=== PATIENT | male | born 1950 | race Caucasian/White ===

== ENCOUNTER 2020-03-19 08:31 | Outpatient (REF) | payer MEDICARE, SELFPAY ==
[2020-03-19 11:34] LABS: Hematocrit 40.7 % (42-52); Hemoglobin 13.3 g/dl (14.0-18.0); Mean Corpuscular HGB Conc 32.7 g/dl (31.0-36.0); Mean Corpuscular Hemoglobin 29.7 pg (27.0-33.0); Mean Corpuscular Volume 90.8 fL (80-98); Mean Platelet Volume 10.5 fL (9.4-12.4); Platelet Count 234 X10*3/uL (160-400); Red Blood Count 4.48 X10*6/uL (4.60-5.80); Red Cell Distribution Width 13.2 % (11.0-16.0)
[2020-03-19 11:43] LABS: Alanine Aminotransferase 16 U/L (0-40); Albumin Level 4.4 g/dL (3.5-5.0); Alkaline Phosphatase 66 U/L (39-117); Anion Gap 16 (12-20); Aspartate Amino Transferase 17 U/L (5-37); Bilirubin Total 0.8 mg/dL (0.0-1.0); Blood Urea Nitrogen 25 mg/dL (9-16); Calcium 9.2 mg/dL (8.4-10.2); Carbon Dioxide 25 mmol/L (22-29); Chloride 100 mmol/L (96-108); Estimated Glomerular Filt Rate > 60; Glucose Fasting 122 mg/dL (60-99); Iron 59 mcg/dL (45-160); Percent Iron Saturation 18 % (15-50); Potassium 4.5 mmol/l (3.3-5.1); Sodium 136 mmol/L (135-145); Total Iron Binding Capacity 320 mcg/dL (228-428); Total Protein 7.6 g/dL (6.5-8.0); Unsaturated Iron Binding 261 ug/dL
[2020-03-19 11:54] LABS: Estimated Average Glucose 148 mg/dL; Hemoglobin A1c % 6.8 %
[2020-03-19 12:10] LABS: Ferritin 63 ng/mL (20-250)
[2020-03-19 12:46] LABS: Prostate Specific Antigen Scr 5.92 ng/mL (<0.05-4.0)
[2020-03-19 13:01] LABS: Folate 18.6 ng/mL (> or = 4.0); Vitamin B12 1589 pg/mL (200-900)
== END 2020-03-19 08:32 | disposition home or self-care (01) ==
LOC: HO.HMGCLDS 08:31
PROVIDERS: PCP Internal Medicine; Visit Provider Internal Medicine
DX: M54.5 Low back pain (principal); G89.29 Other chronic pain; G47.00 Insomnia, unspecified; D64.9 Anemia, unspecified
CPT/HCPCS: 36415; 80053; 82607; 82728; 82746; 83036; 83540; 84153; 85027

== ENCOUNTER 2020-04-25 14:13 | Outpatient (REF) | payer MEDICARE, SELFPAY | END 2020-04-25 14:14 | disposition home or self-care (01) | LOC: HO.LAB 14:13 | PROVIDERS: Visit Provider Nurse Practitioner Family | DX: L02.91 Cutaneous abscess, unspecified (principal) | CPT/HCPCS: 87071; 87205 ==

== ENCOUNTER → 2020-04-26 14:38 | Outpatient (BNVA) | payer MEDICARE, SELFPAY | PROVIDERS: PCP Internal Medicine; Visit Provider Urology | DX: N40.1 Benign prostatic hyperplasia with lower urinary tract symptoms (principal); N13.8 Other obstructive and reflux uropathy; R97.20 Elevated prostate specific antigen [PSA] | CPT/HCPCS: 99202 ==

== ENCOUNTER 2020-07-22 08:55 | Outpatient (REF) | payer MEDICARE, SELFPAY ==
[2020-07-22 11:44] LABS: Hemoglobin 12.8 g/dl (14.0-18.0); Mean Corpuscular HGB Conc 32.8 g/dl (31.0-36.0); Mean Corpuscular Hemoglobin 29.6 pg (27.0-33.0); Mean Corpuscular Volume 90.3 fL (80-98); Mean Platelet Volume 10.5 fL (9.4-12.4); Platelet Count 222 X10*3/uL (160-400); Red Blood Count 4.32 X10*6/uL (4.60-5.80); Red Cell Distribution Width 13.1 % (11.0-16.0); White Blood Count 9.6 X10*3/uL (4.8-10.8)
[2020-07-22 11:46] LABS: Alanine Aminotransferase 19 U/L (0-40); Albumin Level 4.1 g/dL (3.5-5.0); Alkaline Phosphatase 67 U/L (39-117); Anion Gap 15 (12-20); Aspartate Amino Transferase 17 U/L (5-37); Bilirubin Total 0.6 mg/dL (0.0-1.0); Blood Urea Nitrogen 13 mg/dL (9-16); Calcium 8.9 mg/dL (8.4-10.2); Carbon Dioxide 24 mmol/L (22-29); Chloride 106 mmol/L (96-108); Cholesterol 149 mg/dL; Estimated Glomerular Filt Rate > 60; Glucose Fasting 119 mg/dL (60-99); HDL Cholesterol 42 mg/dL; LDL Cholesterol Calculated 84 mg/dl; Sodium 141 mmol/L (135-145); Total Protein 7.1 g/dL (6.5-8.0); Triglycerides 116 mg/dL
[2020-07-22 12:12] LABS: Estimated Average Glucose 137 mg/dL; Hemoglobin A1c % 6.4 %
[2020-07-22 12:26] LABS: Creatinine Urine 186.67 mg/dL; Microalbum/Creatinine Ratio Ur 6.4 ug/mg cr
== END 2020-07-22 08:56 | disposition home or self-care (01) ==
LOC: HO.HMGCLDS 08:55
PROVIDERS: PCP Internal Medicine; Visit Provider Internal Medicine
DX: E11.9 Type 2 diabetes mellitus without complications (principal); E78.5 Hyperlipidemia, unspecified; I10 Essential (primary) hypertension; R97.20 Elevated prostate specific antigen [PSA]
CPT/HCPCS: 36415; 80053; 80061; 82043; 83036; 85027

== ENCOUNTER 2020-08-13 09:27 | Outpatient (REF) | payer MEDICARE, SELFPAY ==
[2020-08-13 14:20] LABS: Prostate Specific Antigen 2.28 ng/mL (<0.05-4.0)
== END 2020-08-13 09:28 | disposition home or self-care (01) ==
LOC: HO.HMGCLDS 09:27
PROVIDERS: PCP Internal Medicine; Visit Provider Urology
DX: N40.1 Benign prostatic hyperplasia with lower urinary tract symptoms (principal); N13.8 Other obstructive and reflux uropathy; Z12.5 Encounter for screening for malignant neoplasm of prostate
CPT/HCPCS: 36415; 84153

== ENCOUNTER → 2020-08-23 14:33 | Outpatient (BNVA) | payer MEDICARE, SELFPAY | PROVIDERS: PCP Internal Medicine; Visit Provider Urology | DX: N40.1 Benign prostatic hyperplasia with lower urinary tract symptoms (principal); N13.8 Other obstructive and reflux uropathy; R97.20 Elevated prostate specific antigen [PSA] | CPT/HCPCS: 99212 ==

== ENCOUNTER 2020-10-21 08:23 | Outpatient (REF) | payer MEDICARE, SELFPAY ==
[2020-10-21 11:14] LABS: Hematocrit 39.3 % (42-52); Mean Corpuscular HGB Conc 33.1 g/dl (31.0-36.0); Mean Corpuscular Hemoglobin 29.4 pg (27.0-33.0); Mean Corpuscular Volume 88.9 fL (80-98); Mean Platelet Volume 10.5 fL (9.4-12.4); Platelet Count 228 X10*3/uL (160-400); Red Blood Count 4.42 X10*6/uL (4.60-5.80); Red Cell Distribution Width 13.2 % (11.0-16.0); White Blood Count 9.8 X10*3/uL (4.8-10.8)
[2020-10-21 11:27] LABS: Estimated Average Glucose 140 mg/dL; Hemoglobin A1c % 6.5 %
[2020-10-21 11:35] LABS: Alanine Aminotransferase 21 U/L (0-40); Albumin Level 4.3 g/dL (3.5-5.0); Alkaline Phosphatase 63 U/L (39-117); Anion Gap 14 (12-20); Aspartate Amino Transferase 18 U/L (5-37); Bilirubin Total 0.8 mg/dL (0.0-1.0); Blood Urea Nitrogen 19 mg/dL (9-16); Calcium 9.1 mg/dL (8.4-10.2); Carbon Dioxide 22 mmol/L (22-29); Chloride 106 mmol/L (96-108); Cholesterol 216 mg/dL; Estimated Glomerular Filt Rate > 60; Glucose Fasting 116 mg/dL (60-99); HDL Cholesterol 40 mg/dL; LDL Cholesterol Calculated 135 mg/dl; Sodium 138 mmol/L (135-145); Total Protein 7.4 g/dL (6.5-8.0); Triglycerides 205 mg/dL
[2020-10-21 11:43] LABS: Creatinine Urine 101.42 mg/dL; Microalbumin Urine < 5.0 mg/L
== END 2020-10-21 08:24 | disposition home or self-care (01) ==
LOC: HO.HMGCLDS 08:23
PROVIDERS: PCP Internal Medicine; Visit Provider Internal Medicine
DX: E11.9 Type 2 diabetes mellitus without complications (principal); I10 Essential (primary) hypertension; E78.5 Hyperlipidemia, unspecified
CPT/HCPCS: 36415; 80053; 80061; 82043; 83036; 85027

== ENCOUNTER 2021-03-04 08:27 | Outpatient (REF) | payer MEDICARE, SELFPAY ==
[2021-03-04 11:52] LABS: Alanine Aminotransferase 17 U/L (0-40); Albumin Level 4.3 g/dL (3.5-5.0); Alkaline Phosphatase 65 U/L (39-117); Anion Gap 13 (12-20); Aspartate Amino Transferase 15 U/L (5-37); Bilirubin Total 0.6 mg/dL (0.0-1.0); Blood Urea Nitrogen 19 mg/dL (9-16); Calcium 9.3 mg/dL (8.4-10.2); Carbon Dioxide 25 mmol/L (22-29); Chloride 105 mmol/L (96-108); Cholesterol 161 mg/dL; Estimated Glomerular Filt Rate > 60; Glucose Fasting 133 mg/dL (60-99); HDL Cholesterol 37 mg/dL; LDL Cholesterol Calculated 90 mg/dl; Potassium 4.4 mmol/L (3.3-5.1); Sodium 139 mmol/L (135-145); Total Protein 7.4 g/dL (6.5-8.0); Triglycerides 172 mg/dL
[2021-03-04 11:59] LABS: Creatinine Urine 115.09 mg/dL; Microalbumin Urine < 5.0 mg/L
[2021-03-04 12:16] LABS: Prostate Specific Antigen 2.29 ng/mL (<0.05-4.0)
[2021-03-04 13:40] LABS: Estimated Average Glucose 146 mg/dL; Hemoglobin A1c % 6.7 %
== END 2021-03-04 08:28 | disposition home or self-care (01) ==
LOC: HO.HMGCLDS 08:27
PROVIDERS: PCP Internal Medicine; Visit Provider Urology
DX: Z12.5 Encounter for screening for malignant neoplasm of prostate (principal); N13.8 Other obstructive and reflux uropathy; N40.1 Benign prostatic hyperplasia with lower urinary tract symptoms; E11.9 Type 2 diabetes mellitus without complications; E78.5 Hyperlipidemia, unspecified; I10 Essential (primary) hypertension
CPT/HCPCS: 36415; 80053; 80061; 82043; 83036; 84153

== ENCOUNTER → 2021-03-11 12:57 | Outpatient (BNVA) | payer MEDICARE, SELFPAY | PROVIDERS: PCP Internal Medicine; Visit Provider Urology | DX: Z13.89 Encounter for screening for other disorder (principal) | CPT/HCPCS: Q3014 ==

== ENCOUNTER 2021-04-23 10:20 | Outpatient (REF) | payer MEDICARE, SELFPAY ==
[2021-04-23 12:56] LABS: Erythrocyte Sedimentation Rate 38 MM/HR (0-15)
== END 2021-04-23 10:21 | disposition home or self-care (01) ==
LOC: HO.HMGCLDS 10:20
PROVIDERS: PCP Internal Medicine; Visit Provider Physical Medicine & Rehabilitation
DX: M35.3 Polymyalgia rheumatica (principal)
CPT/HCPCS: 36415; 85652

== ENCOUNTER 2021-07-01 08:21 | Outpatient (REF) | payer MEDICARE, SELFPAY ==
[2021-07-01 11:49] LABS: Estimated Average Glucose 140 mg/dL; Hemoglobin A1c % 6.5 %
[2021-07-01 12:07] LABS: Alanine Aminotransferase 13 U/L (0-40); Albumin Level 4.1 g/dL (3.5-5.0); Alkaline Phosphatase 59 U/L (39-117); Anion Gap 13 (12-20); Aspartate Amino Transferase 10 U/L (5-37); Bilirubin Total 0.5 mg/dL (0.0-1.0); Blood Urea Nitrogen 27 mg/dL (9-16); Calcium 9.5 mg/dL (8.4-10.2); Carbon Dioxide 23 mmol/L (22-29); Chloride 107 mmol/L (96-108); Cholesterol 145 mg/dL; Estimated Glomerular Filt Rate > 60; Glucose Fasting 78 mg/dL (60-99); HDL Cholesterol 46 mg/dL; LDL Cholesterol Calculated 75 mg/dl; Potassium 4.4 mmol/L (3.3-5.1); Sodium 139 mmol/L (135-145); Total Protein 7.1 g/dL (6.5-8.0); Triglycerides 121 mg/dL
[2021-07-01 12:33] LABS: Microalbum/Creatinine Ratio Ur 6.3 ug/mg cr
== END 2021-07-01 08:22 | disposition home or self-care (01) ==
LOC: HO.HMGCLDS 08:21
PROVIDERS: PCP Internal Medicine; Visit Provider Internal Medicine
DX: E11.9 Type 2 diabetes mellitus without complications (principal); E78.5 Hyperlipidemia, unspecified; I10 Essential (primary) hypertension
CPT/HCPCS: 36415; 80053; 80061; 82043; 83036

== ENCOUNTER → 2021-08-13 08:36 | Outpatient (RCR) | payer MEDICARE, SELFPAY ==
--- NOTE | 2020-02-14 18:16 | MHC.PT.DC ---
[facility] [place] Office [place] Office [place] Office [address] Mee Santos 140 [facility] [phone] F: [phone] F: [phone] F: [phone] F: [phone] Physical Therapy Discharge Report Diagnosis: LBP Date of Surgery: Date of Evaluation: 01/01/02 Date of Discharge: Treatments to Date: 10 Cancellations to Date: 0 No Shows to Date: 0 Discharge Status: Discharge Summary: Pt has been an active participant in his therapy in and out of the clinic and has met most of his therapeutic goals, is I with his home program and in agreement with Dc at this time. Electronically signed by: Jeff Salvador PT Please sign and return to therapist. Thank you for your referral.
== END | disposition home or self-care (01) ==
LOC: HO.PTCHIC 01-12 09:52
PROVIDERS: PCP Internal Medicine; Visit Provider Internal Medicine
DX: M54.5 Low back pain (principal)
CPT/HCPCS: 97014; 97110; 97140; 97150; 97530

== ENCOUNTER 2021-08-26 08:00 | Outpatient (REF) | payer MEDICARE, SELFPAY | END 2021-08-26 08:01 | disposition home or self-care (01) | LOC: HO.HMGCLDS 08:00 | PROVIDERS: PCP Internal Medicine; Visit Provider Urology | DX: Z12.5 Encounter for screening for malignant neoplasm of prostate (principal); N40.1 Benign prostatic hyperplasia with lower urinary tract symptoms; N13.8 Other obstructive and reflux uropathy | CPT/HCPCS: 36415; 84153 ==

== ENCOUNTER 2021-08-27 09:46 | Outpatient (REF) | payer MEDICARE, SELFPAY ==
[2021-08-27 11:43] LABS: MANUAL DIFF FLAG NO
[2021-08-27 12:40] LABS: Basophils Absolute Auto 0.1 X10*3/uL (0.0-0.2); Basophils Percent Auto 0.4 % (0-2); Eosinophils Absolute Auto 0.2 X10*3/uL (0.0-0.4); Eosinophils Percent Auto 1.2 % (0-4); Hematocrit 37.4 % (42.0-52.0); Hemoglobin 11.9 g/dl (14.0-18.0); Imm Gran Pct Auto 0.7 % (0.0-0.4); Lymphocytes Absolute Auto 2.8 X10*3/uL (1.2-4.9); Lymphocytes Percent Auto 19.8 % (20-40); Mean Corpuscular HGB Conc 31.8 g/dl (31.0-36.0); Mean Corpuscular Hemoglobin 28.9 pg (27.0-33.0); Mean Corpuscular Volume 90.8 fL (80.0-98.0); Mean Platelet Volume 9.9 fL (9.4-12.4); Monocytes Absolute Auto 1.2 X10*3/uL (0.1-1.2); Monocytes Percent Auto 8.4 % (2-11); Neutrophils Absolute Auto 9.7 x10*3/uL (2.0-8.3); Neutrophils Percent Auto 69.5 % (45-73); Platelet Count 315 X10*3/uL (160-400); Red Blood Count 4.12 X10*6/uL (4.60-5.80); Red Cell Distribution Width 14.5 % (11.0-16.0); White Blood Count 13.9 X10*3/uL (4.8-10.8)
[2021-08-27 13:08] LABS: C Reactive Protein 0.89 mg/dL (< or = 0.50)
[2021-08-27 13:32] LABS: Erythrocyte Sedimentation Rate 30 MM/HR (0-15)
== END 2021-08-27 09:47 | disposition home or self-care (01) ==
LOC: HO.LAB 09:46
PROVIDERS: PCP Internal Medicine; Visit Provider Internal Medicine Rheumatology
DX: M25.511 Pain in right shoulder (principal); M25.512 Pain in left shoulder; R70.0 Elevated erythrocyte sedimentation rate; M25.50 Pain in unspecified joint; M19.049 Primary osteoarthritis, unspecified hand; M35.3 Polymyalgia rheumatica
CPT/HCPCS: 36415; 82550; 85025; 85652; 86140; 99202

== ENCOUNTER → 2021-09-05 10:03 | Outpatient (BNVA) | payer MEDICARE, SELFPAY | PROVIDERS: PCP Internal Medicine; Referring Provider Internal Medicine; Visit Provider Nurse Practitioner Family | DX: Z12.11 Encounter for screening for malignant neoplasm of colon (principal) | CPT/HCPCS: 99202 ==

== ENCOUNTER → 2021-09-09 11:35 | Outpatient (BNVA) | payer MEDICARE, SELFPAY | PROVIDERS: PCP Internal Medicine; Visit Provider Urology | DX: N40.1 Benign prostatic hyperplasia with lower urinary tract symptoms (principal); N13.8 Other obstructive and reflux uropathy; R97.20 Elevated prostate specific antigen [PSA] | CPT/HCPCS: Q3014 ==

== ENCOUNTER 2021-09-30 08:27 | Outpatient (REF) | payer MEDICARE, SELFPAY ==
[2021-09-30 11:47] LABS: Hematocrit 36.5 % (42.0-52.0); Hemoglobin 11.5 g/dl (14.0-18.0); Mean Corpuscular HGB Conc 31.5 g/dl (31.0-36.0); Mean Corpuscular Hemoglobin 28.9 pg (27.0-33.0); Mean Corpuscular Volume 91.7 fL (80.0-98.0); Platelet Count 264 X10*3/uL (160-400); Red Blood Count 3.98 X10*6/uL (4.60-5.80); Red Cell Distribution Width 13.8 % (11.0-16.0)
[2021-09-30 11:59] LABS: Estimated Average Glucose 137 mg/dL; Hemoglobin A1C 148.6181 umol/L; Hemoglobin A1c % 6.4 %
[2021-09-30 12:13] LABS: Alanine Aminotransferase 11 U/L (0-40); Albumin Level 4.2 g/dL (3.5-5.0); Alkaline Phosphatase 79 U/L (39-117); Anion Gap 14 (12-20); Aspartate Amino Transferase 13 U/L (5-37); Bilirubin Total 0.5 mg/dL (0.0-1.0); Blood Urea Nitrogen 28 mg/dL (9-16); C Reactive Protein 0.11 mg/dL (< or = 0.50); Calcium 9.1 mg/dL (8.4-10.2); Carbon Dioxide 22 mmol/L (22-29); Chloride 108 mmol/L (96-108); Cholesterol 158 mg/dL; Estimated Glomerular Filt Rate 54; Glucose Fasting 82 mg/dL (60-99); HDL Cholesterol 46 mg/dL; Iron 46 mcg/dL (45-160); LDL Cholesterol Calculated 96 mg/dl; Percent Iron Saturation 14 % (15-50); Potassium 4.9 mmol/L (3.3-5.1); Sodium 139 mmol/L (135-145); Total Iron Binding Capacity 334 mcg/dL (228-428); Triglycerides 84 mg/dL; Unsaturated Iron Binding 288 ug/dL
[2021-09-30 12:31] LABS: Erythrocyte Sedimentation Rate 20 MM/HR (0-15)
[2021-09-30 12:41] LABS: Creatinine Urine 89.56 mg/dL; Microalbumin Urine < 5.0 mg/L
== END 2021-09-30 08:28 | disposition home or self-care (01) ==
LOC: HO.HMGCLDS 08:27
PROVIDERS: Absent Provider Internal Medicine Rheumatology; PCP Internal Medicine; Visit Provider Internal Medicine
DX: M35.3 Polymyalgia rheumatica (principal); E11.9 Type 2 diabetes mellitus without complications; I10 Essential (primary) hypertension
CPT/HCPCS: 36415; 80053; 80061; 82043; 83036; 83540; 85027; 85652; 86140

== ENCOUNTER → 2021-10-09 09:13 | Outpatient (BNVA) | payer MEDICARE, SELFPAY | PROVIDERS: PCP Internal Medicine; Visit Provider Internal Medicine Rheumatology | DX: M35.3 Polymyalgia rheumatica (principal); M25.511 Pain in right shoulder | CPT/HCPCS: 99212 ==

== ENCOUNTER 2021-11-28 10:00 | Outpatient (RCR) | payer MEDICARE, SELFPAY ==
--- NOTE | 2021-10-27 13:52 | MHC.PT.EP ---
[facility] [place] Office [place] Office [place] Office [address] Malorie Santos [address] [phone] F: [phone] F: [phone] F: [phone] F: [phone] Physical Therapy Plan of Care Date of Evaluation: Date of Surgery: Diagnosis: Pain in R shoulder. Assessment: Pt is a 71 y/o male with PMR referred to PT for eval and treat of R shoulder pain resulting in decreased tolerance for reaching high shelves, dress pullovers, perform heavy HH and yard-work chores secondary to decreased R shoulder ROM and strength, TTP of R anterior shoulder, decreased scapular posture, and pain. Pt is deemed an appropriate candidate to receive skilled PT in order to address his physical limitations to improve his functional ability. Frequency and Duration: The patient will be seen 2 x / wk x 5 wks. Short Term Goals: Initiate HEP. symmetrical shoulder flexion achieved; initial: R 140 and painful, L 165. Intermediate Goals: I with HEP. Pt will be able to dress pullover with managed Sx; initial:4/10 pain/ difficulty. Pt will be able to place objects on high shelf with managed Sx; initial: 6/10 pain. Improve R shoulder ER MMT by at least 1/2 MMT grade. Treatment Plan: Modalities to reduce pain, spasms and effusion. Manual therapy to restore motion and function. Therapeutic exercise to improve strength and flexibility. Neuromuscular re-education for posture and balance. Therapeutic activities to return to functional activities of daily living. Electronically signed by: Jeff Salvador PT. Please sign and return to therapist. Thank you for your referral.
--- NOTE | 2021-11-28 10:54 | MHC.PT.DC ---
[facility] [place] Office [place] Office [place] Office [address] Mee Santos [address] [phone] F: [phone] F: [phone] F: [phone] F: [phone] Physical Therapy Discharge Report Diagnosis: Pain in R shoulder. Date of Surgery: Date of Evaluation: 10/27/21 Date of Discharge: 11/28/21 Treatments to Date: 6 Cancellations to Date: No Shows to Date: Discharge Status: Achieved Goals Improved Function Independent with HEP Discharge Summary: Vern has been an active and motivated participant in his therapy in and out of the clinic; he has met his therapeutic goals, reports 90% improvement of his symptoms, and is I with his home program. LEFI outcome measure improved from 52% to 14%. Electronically signed by: Jeff Salvador PT. Please sign and return to therapist. Thank you for your referral.
== END 2021-11-28 10:55 | disposition home or self-care (01) ==
LOC: HO.PTCHIC 10:00
PROVIDERS: PCP Internal Medicine; Visit Provider Internal Medicine Rheumatology
DX: M25.511 Pain in right shoulder (principal); M35.3 Polymyalgia rheumatica
CPT/HCPCS: 97110; 97140; 97161

== ENCOUNTER 2021-12-02 08:30 | Outpatient (REF) | payer MEDICARE, SELFPAY ==
--- NOTE | ~2021-12-02 | XR_ITS ---
EXAMINATION: XR SHOULDER, RIGHT CLINICAL INFORMATION: Polymyalgia rheumatica COMPARISON: None TECHNIQUE: Four views of the right shoulder. FINDINGS: No fracture or dislocation. The glenohumeral joint is aligned well. Small osteophytes. Mild degenerative change of the acromioclavicular joint. The visualized lung is clear. The visualized ribs are intact. XR/XR shoulder RT min 2V IMPRESSION: Mild degenerative changes.
[2021-12-02 12:02] LABS: C Reactive Protein 0.26 mg/dL (< or = 0.50)
[2021-12-02 12:03] LABS: Erythrocyte Sedimentation Rate 23 MM/HR (0-15)
== END 2021-12-02 08:31 | disposition home or self-care (01) ==
LOC: HO.HMGCX 08:30
PROVIDERS: PCP Internal Medicine; Visit Provider Internal Medicine Rheumatology
DX: M35.3 Polymyalgia rheumatica (principal); M25.511 Pain in right shoulder
CPT/HCPCS: 36415; 73030; 85652; 86140

== ENCOUNTER → 2021-12-10 10:17 | Outpatient (BNVA) | payer MEDICARE, SELFPAY | PROVIDERS: PCP Internal Medicine; Visit Provider Internal Medicine Rheumatology | DX: M35.3 Polymyalgia rheumatica (principal); M19.049 Primary osteoarthritis, unspecified hand; M75.81 Other shoulder lesions, right shoulder; Z79.52 Long term (current) use of systemic steroids | CPT/HCPCS: 99212 ==

== ENCOUNTER 2022-01-14 07:32 | Day surgery (SDC) | payer MEDICARE, SELFPAY ==
--- NOTE | 2022-01-13 09:15 | P.CONAN_ITS ---
Documented by User: Rama Hensley NP 01/13/22 09:17 HPI - Anesthesia Eval Consult details Narrative: 71yo M for Colonoscopy Prednisone 4mg daily for PMR PMFSH Active Problems Active Problems: All Active Problems (Updated 12/10/21 @ 13:28 by Patel Gross MD) Tendinitis of right rotator cuff (Acute) Pain, joint, shoulder region, right (Acute) Polymyalgia rheumatica (Acute) Osteoarthritis, hand (Acute) ESR raised (Acute) Osteoarthritis of lumbosacral spine with radiculopathy (Acute) BPH w urinary obs/LUTS (Acute) Hypertension (Acute) Type 2 diabetes mellitus (Acute) Elevated PSA (Acute) Hyperlipidemia (Acute) Past Medical History Medical History (Updated 12/10/21 @ 13:28 by Patel Gross MD) Annual physical exam Arthralgia Chronic bronchitis Dupuytren's contracture of both hands Elevated PSA ESR raised H/O mixed hyperlipidemia Hyperlipidemia Hypertension Insomnia Mild persistent asthma Osteoarthritis of lumbosacral spine with radiculopathy Osteoarthritis, hand Polymyalgia rheumatica Shoulder pain, bilateral Shoulder tendinitis Type 2 diabetes mellitus Family History Family History Father Diabetes mellitus Mother HTN (hypertension) Sister No problems noted. Daughter No problems noted. Surgical History Surgical History H/O colonoscopy No pertinent past surgical history Social History Social History Housing: House Alcohol intake: never Patient Tobacco Use Status: Former Tobacco user Tobacco use type: Cigarette Smoked in Last 30 Days: No e-Cigarette/Vaping Use: Never Used Use of substances other than those prescribed or required for medical reasons: No Are you DNR?: No Advance Directives: No Advance Directives Information Provided: Yes Current occupational status: retired Cognitive needs: No Hearing needs: Yes Vision needs: No Meds Allergies Allergy/AdvReac Type Severity Reaction Status Date / Time No Known Allergies Allergy Verified 12/10/21 10:45 Home Medications Medication Instructions Recorded Confirmed Last Taken Type pravastatin 80 mg tablet 80 mg PO DAILY 01/14/22 01/14/22 Unknown History prednisone 1 mg tablet 3 mg PO DAILY 01/14/22 01/14/22 Unknown History Exam Exam Date and Time: January 13, 2022 0915 Pertinent Lab Results Pertinent Lab Results: Laboratory Tests 09/30/21 09/30/21 08:36 08:36 WBC 11.0 H Hgb 11.5 L Hct 36.5 L Plt Count 264 Sodium 139 Potassium 4.9 Chloride 108 Carbon Dioxide 22 BUN 28 H Creatinine 1.30 Assessment and Plan Assessment Anesthesia Assessment: Chart Reviewed Documented by User: Rosario Grace MD 01/14/22 09:30 [facility] Past Medical History Medical History (Updated 12/10/21 @ 13:28 by Patel Gross MD) Annual physical exam Arthralgia Chronic bronchitis Dupuytren's contracture of both hands Elevated PSA ESR raised H/O mixed hyperlipidemia Hyperlipidemia Hypertension Insomnia Mild persistent asthma Osteoarthritis of lumbosacral spine with radiculopathy Osteoarthritis, hand Polymyalgia rheumatica Shoulder pain, bilateral Shoulder tendinitis Type 2 diabetes mellitus Family History Family History Father Diabetes mellitus Mother HTN (hypertension) Sister No problems noted. Daughter No problems noted. Family history of problems with anesthesia: No Surgical History Surgical History H/O colonoscopy No pertinent past surgical history History of Problems with Anesthesia: No Social History Social History Housing: House Alcohol intake: never Patient Tobacco Use Status: Former Tobacco user Tobacco use type: Cigarette Smoked in Last 30 Days: No e-Cigarette/Vaping Use: Never Used Use of substances other than those prescribed or required for medical reasons: No Are you DNR?: No Advance Directives: No Advance Directives Information Provided: Yes Current occupational status: retired Cognitive needs: No Hearing needs: Yes Vision needs: No Meds Allergies Allergy/AdvReac Type Severity Reaction Status Date / Time No Known Allergies Allergy Verified 12/10/21 10:45 Home Medications Medication Instructions Recorded Confirmed Last Taken Type pravastatin 80 mg tablet 80 mg PO DAILY 01/14/22 01/14/22 Unknown History prednisone 1 mg tablet 3 mg PO DAILY 01/14/22 01/14/22 Unknown History Exam Airway Mallampati Class: III TM Dist: >3cm Neck ROM: Full Heart: rrr Lungs: cta Assessment and Plan Assessment Anesthesia Assessment: Anesthesia Plan Discussed and Chart Reviewed Final Anesthetic Review Family History of Problems with Anesthesia: No History of Problems with Anesthesia: No NPO: Yes ASA Class: II Final Preanesthetic Review: No Changes in Pt Med Stat, Meds/Allgs Chart Reviewed and Consent Obtained/Reviewed Patient Risk: Intermediate Procedure Risk: Intermediate Anesthetic Plan Anesthetic Plan: MAC: Disposition: Standard PACU
[2022-01-14 08:48] VITALS: BMI 28.4
[2022-01-14 09:05] VITALS: BP 134/72; PULSE 88; RESP 16; TEMP 36.4; O2SAT 98
[2022-01-14] MEDS: Lactated Ringers 1,000 ML 100 ML IVCONT (09:18)
[2022-01-14 09:21] LABS: Glucose, Whole Blood 120 mg/dL (60-115)
--- NOTE | 2022-01-14 09:27 | MHC.SHP ---
Pre-Procedural Eval Section A Date of Service: 01/14/22 Section B Chief Complaint: screening Relevant Family History (Specify if Yes): No Relevant Social History: None Present Medications: see Short Stay Collaborative assessment Medical History: Significant History (Arthralgia Chronic bronchitis Dupuytren's contracture of both hands Elevated PSA ESR raised H/O mixed hyperlipidemia Hyperlipidemia Hypertension Insomnia Mild persistent asthma Osteoarthritis of lumbosacral spine with radiculopathy Osteoarthritis, hand Polymyalgia rheumatica Shoulder pain, bilateral) History of Previous Operations: Relevant previous surgery/procedure and date(s) (colonoscopy) Allergies: Allergies Allergy/AdvReac Type Severity Reaction Status Date / Time No Known Allergies Allergy Verified 12/10/21 10:45 Review of Systems Sugical H&P ROS: Negative: Constitution, Cardiovascular, Respiratory, Neurological, Psychiatric, Hem-Onc, Allergic/Immunologic, Gastrointestinal, Genitourinary, Musculoskeletal, Integumentary, Endocrine and Eyes/Ears/Nose/Throat Exam Surgical H&P Exam: Normal: HEENT, Normal: Heart, Normal: Lungs, Normal: Extremities, Normal: Abdomen, Normal: Skin and Normal: Neurological Plan Diagnosis/Plan: Unchanged I have reviewed the history and physical and performed a pertinent physical examination on my patient. No changes have occurred unless specified.
--- NOTE | 2022-01-14 09:31 | W.PM.OPN ---
Operative Note Operative Note Date of Service: 01/14/22 Narrative: Operative Information Procedure Description: Colonoscopy Indication: screening Anesthesia: MAC COLONOSCOPY Instrument: Olympus variable stiffness adult scope 190L Colonoscopy Monitoring: Vital signs and clinical assessment, continuous EKG monitoring, Pulse oximetry, Carbon Dioxide monitoring and blood pressure monitoring were done throughout the procedure. Colon withdrawal time was 30 minutes. Procedure: The patient was placed in the left lateral decubitis position and pre-procedure medications were administered. After a digital rectal examination of the ano-rectum, the video colonoscope was inserted into the rectum and advanced through the colon to the cecum The colonoscope was slowly withdrawn in a retrograde panoramic fashion and the colon mucosa was carefully examined including a retroflexed view of the rectum. Findings and interventions are described below. Procedure Difficulty: difficult due to looping Findings: Terminal Ileum-not intubated Cecum:normal Ascending Colon: large sessile polyp 2-3 cm in length, injected with ORISE and epinpehrine then removed using combination of hot snare,. cold snare and biopsy forceps. Edges ablated with soft tip coag and then defect closed with 4 clips. Pieces retrieved wtih net. Transverse Colon -normal Descending Colon:normal Sigmoid Colon: normal Rectum: Retroflexion not doen as patient was vomiting. Anorectum - normal Colon preparation: [place] Bowel Preparation Scale Right colon; 2 Transverse colon: 2 Left colon; 2 (0 = Unprepared colon segment with mucosa not seen due to solid stool that cannot be cleared. 1 = Portion of mucosa of the colon segment seen, but other areas of the colon segment not well seen due to staining, residual stool and/or opaque liquid. 2 = Minor amount of residual staining, small fragments of stool and/or opaque liquid, but mucosa of colon segment seen well. 3 = Entire mucosa of colon segment seen well with no residual staining, small fragments of stool or opaque liquid) Impression and Post Procedure Diagnosis: large polyp lesion right colon Plan: Repeat Colonoscopy in 3-6 months or earlier if clinically indicated Avoid nsaids for 1 week Above findings were reviewed with the patient and relevant handouts were provided if indicated.
[2022-01-14 10:23] VITALS: BP 118/86; PULSE 79; RESP 16; TEMP 36.4; O2SAT 94
[2022-01-14 10:38] VITALS: BP 138/72; PULSE 76; RESP 18; TEMP 36.4; O2SAT 98
== END 2022-01-14 11:09 ==
LOC: HO.SSS 07:32
PROVIDERS: PCP Internal Medicine; Visit Provider Internal Medicine Gastroenterology
PROC: 0DJD8ZZ Inspection of Lower Intestinal Tract, Via Natural or Artificial Opening Endoscopic (ICD-10-PCS; CPT 45378; principal; 2022-01-14 09:30)
DX: Z12.11 Encounter for screening for malignant neoplasm of colon (principal); D12.2 Benign neoplasm of ascending colon; R97.20 Elevated prostate specific antigen [PSA]; I10 Essential (primary) hypertension; J45.30 Mild persistent asthma, uncomplicated; J42 Unspecified chronic bronchitis; E78.5 Hyperlipidemia, unspecified; M35.3 Polymyalgia rheumatica; E11.9 Type 2 diabetes mellitus without complications; Z79.84 Long term (current) use of oral hypoglycemic drugs; Z79.52 Long term (current) use of systemic steroids; Z79.899 Other long term (current) drug therapy; Z87.891 Personal history of nicotine dependence
CPT/HCPCS: 45385; 45380; 45381; 82947; 88305; J0171

== ENCOUNTER → 2022-01-28 10:07 | Outpatient (BNVA) | payer MEDICARE, SELFPAY | PROVIDERS: PCP Internal Medicine; Visit Provider Nurse Practitioner Family | DX: Z01.818 Encounter for other preprocedural examination (principal); D36.9 Benign neoplasm, unspecified site | CPT/HCPCS: 99212 ==

== ENCOUNTER 2022-02-02 08:07 | Outpatient (REF) | payer MEDICARE, SELFPAY ==
[2022-02-02 11:46] LABS: Estimated Average Glucose 128 mg/dL; Hemoglobin A1C 129.6406 umol/L; Hemoglobin A1c % 6.1 %
[2022-02-02 12:17] LABS: Alanine Aminotransferase 9 U/L (0-40); Albumin Level 4.2 g/dL (3.5-5.0); Alkaline Phosphatase 73 U/L (39-117); Anion Gap 16 (12-20); Aspartate Amino Transferase 13 U/L (5-37); Bilirubin Total 0.6 mg/dL (0.0-1.0); Blood Urea Nitrogen 21 mg/dL (9-16); Calcium 9.4 mg/dL (8.4-10.2); Carbon Dioxide 22 mmol/L (22-29); Chloride 106 mmol/L (96-108); Cholesterol 156 mg/dL; Estimated Glomerular Filt Rate > 60; Glucose Fasting 95 mg/dL (60-99); HDL Cholesterol 44 mg/dL; LDL Cholesterol Calculated 75 mg/dl; Potassium 4.4 mmol/L (3.3-5.1); Sodium 140 mmol/L (135-145); Total Protein 7.1 g/dL (6.5-8.0); Triglycerides 185 mg/dL
[2022-02-02 12:25] LABS: Creatinine Urine 93.02 mg/dL; Microalbumin Urine < 5.0 mg/L
== END 2022-02-02 08:08 | disposition home or self-care (01) ==
LOC: HO.HMGCLDS 08:07
PROVIDERS: PCP Internal Medicine; Visit Provider Internal Medicine
DX: E11.9 Type 2 diabetes mellitus without complications (principal); E78.5 Hyperlipidemia, unspecified; I10 Essential (primary) hypertension
CPT/HCPCS: 36415; 80053; 80061; 82043; 83036

== ENCOUNTER 2022-03-06 08:38 | Outpatient (REF) | payer MEDICARE, SELFPAY ==
[2022-03-06 10:01] LABS: Erythrocyte Sedimentation Rate 28 MM/HR (0-15)
[2022-03-06 10:27] LABS: PSA,Total (Free>4and<10) 2.42 ng/mL (0.00-4.00)
== END 2022-03-06 08:39 | disposition home or self-care (01) ==
LOC: HO.LAB 08:38
PROVIDERS: Absent Provider Urology; PCP Internal Medicine; Visit Provider Internal Medicine Rheumatology
DX: Z12.5 Encounter for screening for malignant neoplasm of prostate (principal); M35.3 Polymyalgia rheumatica; N40.1 Benign prostatic hyperplasia with lower urinary tract symptoms; N13.8 Other obstructive and reflux uropathy
CPT/HCPCS: 36415; 84153; 85652

== ENCOUNTER → 2022-03-10 10:58 | Outpatient (BNVA) | payer MEDICARE, SELFPAY | PROVIDERS: PCP Internal Medicine; Visit Provider Internal Medicine Rheumatology | DX: M35.3 Polymyalgia rheumatica (principal) | CPT/HCPCS: 99212 ==

== ENCOUNTER → 2022-03-17 11:28 | Outpatient (BNVA) | payer MEDICARE, SELFPAY | PROVIDERS: PCP Internal Medicine; Visit Provider Urology | DX: R97.20 Elevated prostate specific antigen [PSA] (principal); N40.1 Benign prostatic hyperplasia with lower urinary tract symptoms; N13.8 Other obstructive and reflux uropathy | CPT/HCPCS: Q3014 ==

== ENCOUNTER 2022-04-16 08:24 | Outpatient (REF) | payer MEDICARE, SELFPAY ==
[2022-04-16 12:01] LABS: C Reactive Protein 0.58 mg/dL (< or = 0.50)
[2022-04-16 12:29] LABS: Erythrocyte Sedimentation Rate 29 MM/HR (0-15)
== END 2022-04-16 08:25 | disposition home or self-care (01) ==
LOC: HO.HMGCLDS 08:24
PROVIDERS: PCP Internal Medicine; Visit Provider Internal Medicine Rheumatology
DX: M35.3 Polymyalgia rheumatica (principal)
CPT/HCPCS: 36415; 85652; 86140

== ENCOUNTER → 2022-04-22 08:17 | Outpatient (BNVA) | payer MEDICARE, SELFPAY | PROVIDERS: PCP Internal Medicine; Visit Provider Internal Medicine Rheumatology | DX: M19.049 Primary osteoarthritis, unspecified hand (principal); M47.27 Other spondylosis with radiculopathy, lumbosacral region; M75.81 Other shoulder lesions, right shoulder; M35.3 Polymyalgia rheumatica | CPT/HCPCS: 20610; 99212 ==

== ENCOUNTER 2022-05-05 07:44 | Outpatient (REF) | payer MEDICARE, SELFPAY ==
[2022-05-05 11:40] LABS: MANUAL DIFF FLAG NO
[2022-05-05 11:49] LABS: Basophils Absolute Auto 0.1 X10*3/uL (0.0-0.2); Basophils Percent Auto 0.5 % (0-2); Eosinophils Absolute Auto 0.3 X10*3/uL (0.0-0.4); Hematocrit 37.7 % (42.0-52.0); Hemoglobin 12.2 g/dl (14.0-18.0); Imm Gran Abs Auto 0.04 X10*3/uL (0.00-0.03); Imm Gran Pct Auto 0.3 % (0.0-0.4); Lymphocytes Absolute Auto 3.8 X10*3/uL (1.2-4.9); Lymphocytes Percent Auto 30.4 % (20-40); Mean Corpuscular HGB Conc 32.4 g/dl (31.0-36.0); Mean Corpuscular Hemoglobin 28.2 pg (27.0-33.0); Mean Corpuscular Volume 87.1 fL (80.0-98.0); Mean Platelet Volume 10.3 fL (9.4-12.4); Monocytes Absolute Auto 0.9 X10*3/uL (0.1-1.2); Monocytes Percent Auto 7.1 % (2-11); Neutrophils Absolute Auto 7.5 x10*3/uL (2.0-8.3); Neutrophils Percent Auto 59.7 % (45-73); Platelet Count 291 X10*3/uL (160-400); Red Blood Count 4.33 X10*6/uL (4.60-5.80); Red Cell Distribution Width 13.9 % (11.0-16.0); White Blood Count 12.6 X10*3/uL (4.8-10.8)
[2022-05-05 12:17] LABS: Alanine Aminotransferase 12 U/L (0-40); Albumin Level 4.2 g/dL (3.5-5.0); Alkaline Phosphatase 85 U/L (39-117); Anion Gap 17 (12-20); Aspartate Amino Transferase 14 U/L (5-37); Bilirubin Total 0.9 mg/dL (0.0-1.0); Blood Urea Nitrogen 21 mg/dL (9-16); Calcium 9.4 mg/dL (8.4-10.2); Carbon Dioxide 22 mmol/L (22-29); Chloride 106 mmol/L (96-108); Cholesterol 137 mg/dL; Estimated Glomerular Filt Rate 59; Glucose Fasting 100 mg/dL (60-99); HDL Cholesterol 50 mg/dL; LDL Cholesterol Calculated 63 mg/dl; Potassium 4.5 mmol/L (3.3-5.1); Sodium 140 mmol/L (135-145); Total Protein 7.1 g/dL (6.5-8.0); Triglycerides 120 mg/dL
[2022-05-05 12:20] LABS: Estimated Average Glucose 140 mg/dL; Hemoglobin A1C 148.5229 umol/L; Hemoglobin A1c % 6.5 %
[2022-05-05 12:40] LABS: Creatinine Urine 99.94 mg/dL; Microalbumin Urine < 5.0 mg/L
== END 2022-05-05 07:45 | disposition home or self-care (01) ==
LOC: HO.HMGCLDS 07:44
PROVIDERS: PCP Internal Medicine; Visit Provider Internal Medicine
DX: Z00.00 Encounter for general adult medical examination without abnormal findings (principal); E11.9 Type 2 diabetes mellitus without complications; E78.5 Hyperlipidemia, unspecified; I10 Essential (primary) hypertension
CPT/HCPCS: 36415; 80053; 80061; 82043; 83036; 85025

== ENCOUNTER 2022-05-14 06:15 | Day surgery (SDC) | payer MEDICARE, SELFPAY ==
[2022-05-08 13:45] VITALS: BMI 28.0
--- NOTE | 2022-05-14 06:03 | MHC.SHP ---
Pre-Procedural Eval Section A Date of Service: 05/14/22 Section B Chief Complaint: Benign neoplasm, Relevant Family History (Specify if Yes): No Relevant Social History: None Present Medications: see Short Stay Collaborative assessment Medical History: Significant History (Arthralgia Chronic bronchitis Dupuytren's contracture of both hands Elevated PSA ESR raised H/O mixed hyperlipidemia Hyperlipidemia Hypertension Insomnia Mild persistent asthma Osteoarthritis of lumbosacral spine with radiculopathy Osteoarthritis, hand Polymyalgia rheumatica Shoulder pain, bilateral) History of Previous Operations: Relevant previous surgery/procedure and date(s) (colonoscopy) Allergies: Allergies Allergy/AdvReac Type Severity Reaction Status Date / Time No Known Allergies Allergy Verified 05/13/22 12:26 Review of Systems Sugical H&P ROS: Negative: Constitution, Cardiovascular, Respiratory, Neurological, Psychiatric, Hem-Onc, Allergic/Immunologic, Gastrointestinal, Genitourinary, Musculoskeletal, Integumentary, Endocrine and Eyes/Ears/Nose/Throat Exam Surgical H&P Exam: Normal: HEENT, Normal: Heart, Normal: Lungs, Normal: Extremities, Normal: Abdomen, Normal: Skin and Normal: Neurological Plan Diagnosis/Plan: Unchanged I have reviewed the history and physical and performed a pertinent physical examination on my patient. No changes have occurred unless specified. Time Spent With Patient Time: Total time managing care of this patient today ____ minutes.
[2022-05-14 07:02] LABS: Glucose, Whole Blood 108 mg/dL (60-115)
[2022-05-14 07:12] VITALS: BP 141/75; PULSE 89; RESP 18; TEMP 36.5; O2SAT 96
[2022-05-14] MEDS: Lactated Ringers 1,000 ML 100 ML IVCONT (07:31)
--- NOTE | 2022-05-14 07:51 | P.OP_ITS ---
Operative Note Operative Note Date of Service: 05/14/22 Narrative: Operative Information Procedure Description: Colonoscopy Indication: hx of polyps Anesthesia: MAC COLONOSCOPY Instrument: Olympus variable stiffness pediatric scope 190L Colonoscopy Monitoring: Vital signs and clinical assessment, continuous EKG monitoring, Pulse oximetry, Carbon Dioxide monitoring and blood pressure monitoring were done throughout the procedure. Colon withdrawal time was 20 minutes. Procedure: The patient was placed in the left lateral decubitis position and pre-procedure medications were administered. After a digital rectal examination of the ano-rectum, the video colonoscope was inserted into the rectum and advanced through the colon to the cecum/TI. The colonoscope was slowly withdrawn in a retrograde panoramic fashion and the colon mucosa was carefully examined including a retroflexed view of the rectum. Findings and interventions are described below. Procedure Difficulty: mdoerate due to looping, put on back, presssure applied, but back position helped more Findings: Terminal Ileum-normal Cecum: 4-6 mm sessile polyps x2 -one removed with cold forceps and another with cold snare, small AVM noted Ascending Colon: 10-12 mm sessile polyp removed with cold snare, no residual scars or polyps noted from last EMR few months back- few non bleeding AVM noted Transverse Colon -normal Descending Colon: 7-8 mm sessile polyp removed with cold snare Sigmoid Colon: normal Rectum: Retroflexion with small internal hemorrhoids, grade I Anorectum - normal Colon preparation: [place] Bowel Preparation Scale Right colon; 2 Transverse colon: 2 Left colon; 1-2 (0 = Unprepared colon segment with mucosa not seen due to solid stool that cannot be cleared. 1 = Portion of mucosa of the colon segment seen, but other areas of the colon segment not well seen due to staining, residual stool and/or opaque liquid. 2 = Minor amount of residual staining, small fragments of stool and/or opaque liquid, but mucosa of colon segment seen well. 3 = Entire mucosa of colon segment seen well with no residual staining, small fragments of stool or opaque liquid) Impression and Post Procedure Diagnosis: polyps internal hemorrhoids non bleeding AVM several Plan: High fiber diet leaflet Avoid straining at stool, epsom salts and sitz bath, anusol supps or cream Repeat Colonoscopy in 6-12 months or earlier if clinically indicated Above findings were reviewed with the patient and relevant handouts were provided if indicated.
--- NOTE | 2022-05-14 08:33 | HO.ANESPROP2 ---
HPI - Anesthesia Eval Consult details Narrative: 72 M for colonoscopy [facility] Active Problems Active Problems: All Active Problems (Updated 05/13/22 @ 13:27 by Hiral Avery MD) BPH w urinary obs/LUTS (Acute) Tendinitis of right rotator cuff (Acute) Polymyalgia rheumatica (Acute) Osteoarthritis, hand (Acute) ESR raised (Acute) Osteoarthritis of lumbosacral spine with radiculopathy (Acute) Hypertension (Acute) Type 2 diabetes mellitus (Acute) Elevated PSA (Acute) Hyperlipidemia (Acute) Past Medical History Medical History Annual physical exam Arthralgia Chronic bronchitis Dupuytren's contracture of both hands Elevated PSA ESR raised H/O mixed hyperlipidemia Hyperlipidemia Hypertension Insomnia Mild persistent asthma Osteoarthritis of lumbosacral spine with radiculopathy Osteoarthritis, hand Polymyalgia rheumatica Shoulder pain, bilateral Shoulder tendinitis Type 2 diabetes mellitus Family History Family History Father Diabetes mellitus Mother HTN (hypertension) Sister No problems noted. Daughter No problems noted. Family history of problems with anesthesia: No Surgical History Surgical History H/O colonoscopy History of Problems with Anesthesia: No Social History Social History Housing: House Alcohol intake: never Patient Tobacco Use Status: Former Tobacco user Tobacco use type: Cigarette e-Cigarette/Vaping Use: Never Used Use of substances other than those prescribed or required for medical reasons: No Have you been hit, kicked, punched, or otherwise hurt by someone within the past year? If so, by whom?: No Are you DNR?: No Advance Directives: No Advance Directives Information Provided: Yes Current occupational status: retired Cognitive needs: No Hearing needs: Yes Vision needs: No Meds Allergies Allergy/AdvReac Type Severity Reaction Status Date / Time No Known Allergies Allergy Verified 05/13/22 12:26 Active Medications: Current Medications Lactated Ringer's (Lr) 1,000 mls @ 100 mls/hr IVCONT .Q10H BRAIN Last Admin: 05/14/22 07:31 Dose: 100 mls/hr Home Medications Medication Instructions Recorded Confirmed Last Taken Type acetaminophen 650 mg 650 mg PO Q12H PRN pain 04/22/22 05/13/22 Unknown History tablet,extended release (8 Hour Pain Reliever) Exam Exam Date and Time: May 14, 2022 0833 Height,Weight and Vital Signs: Height 5 ft 9 in Weight 190 lb Last Vital Signs Temp 97.7 F 05/14/22 07:12 Pulse 89 05/14/22 07:12 Resp 18 05/14/22 07:12 BP 141/75 H 05/14/22 07:12 Pulse Ox 96 05/14/22 07:12 O2 Del Method 05/14/22 07:12 Pertinent Lab Results Pertinent Lab Results: Laboratory Tests 05/14/22 06:48 POC Glucose 108 Airway Mallampati Class: II TM Dist: >3cm Neck ROM: Full Loose/Missing/Broken Teeth: Yes Assessment and Plan Assessment Anesthesia Assessment: Anesthesia Plan Discussed and Chart Reviewed Final Anesthetic Review Family History of Problems with Anesthesia: No History of Problems with Anesthesia: No NPO: Yes ASA Class: II Final Preanesthetic Review: No Changes in Pt Med Stat, Meds/Allgs Chart Reviewed, Consent Obtained/Reviewed and Anes Risks/Benef Reviewed Patient Risk: Low Procedure Risk: Low Anesthetic Plan Anesthetic Plan: MAC: Disposition: Standard PACU
[2022-05-14 08:35] VITALS: BP 91/57; PULSE 78; RESP 18; TEMP 36.1; O2SAT 95
[2022-05-14 08:49] VITALS: BP 119/73; PULSE 84; RESP 18; TEMP 36.3; O2SAT 98
[2022-05-14 09:04] VITALS: BP 123/71; PULSE 72; RESP 16; TEMP 36.1; O2SAT 99
== END 2022-05-14 09:40 | disposition home or self-care (01) ==
PROVIDERS: PCP Internal Medicine; Visit Provider Internal Medicine Gastroenterology
PROC: 0DJD8ZZ Inspection of Lower Intestinal Tract, Via Natural or Artificial Opening Endoscopic (ICD-10-PCS; CPT 45378; principal; 2022-05-14 07:30)
DX: D36.9 Benign neoplasm, unspecified site (principal); D12.0 Benign neoplasm of cecum; K64.8 Other hemorrhoids; E11.9 Type 2 diabetes mellitus without complications; I10 Essential (primary) hypertension
CPT/HCPCS: 45380; 45385; 82947; 88305

== ENCOUNTER → 2022-05-28 10:08 | Outpatient (BNVA) | payer MEDICARE, SELFPAY | PROVIDERS: PCP Internal Medicine; Visit Provider Nurse Practitioner Family | DX: D36.9 Benign neoplasm, unspecified site (principal); D12.6 Benign neoplasm of colon, unspecified; Z98.890 Other specified postprocedural states | CPT/HCPCS: 99212 ==

== ENCOUNTER 2022-08-05 08:18 | Outpatient (REF) | payer MEDICARE, SELFPAY ==
[2022-08-05 11:07] LABS: MANUAL DIFF FLAG NO
[2022-08-05 11:14] LABS: Basophils Absolute Auto 0.1 X10*3/uL (0.0-0.2); Basophils Percent Auto 0.6 % (0-2); Eosinophils Absolute Auto 0.4 X10*3/uL (0.0-0.4); Eosinophils Percent Auto 3.6 % (0-4); Hematocrit 38.1 % (42.0-52.0); Hemoglobin 12.1 g/dl (14.0-18.0); Imm Gran Abs Auto 0.04 X10*3/uL (0.00-0.03); Imm Gran Pct Auto 0.4 % (0.0-0.4); Lymphocytes Absolute Auto 2.8 X10*3/uL (1.2-4.9); Lymphocytes Percent Auto 26.7 % (20-40); Mean Corpuscular HGB Conc 31.8 g/dl (31.0-36.0); Mean Corpuscular Hemoglobin 27.9 pg (27.0-33.0); Mean Platelet Volume 10.4 fL (9.4-12.4); Monocytes Absolute Auto 0.9 X10*3/uL (0.1-1.2); Monocytes Percent Auto 8.7 % (2-11); Neutrophils Absolute Auto 6.3 x10*3/uL (2.0-8.3); Platelet Count 253 X10*3/uL (160-400); Red Blood Count 4.33 X10*6/uL (4.60-5.80); Red Cell Distribution Width 13.8 % (11.0-16.0); White Blood Count 10.4 X10*3/uL (4.8-10.8)
[2022-08-05 11:17] LABS: Estimated Average Glucose 157 mg/dL; Hemoglobin A1c % 7.1 %
[2022-08-05 11:24] LABS: Alanine Aminotransferase 13 U/L (0-40); Albumin Level 4.1 g/dL (3.5-5.0); Alkaline Phosphatase 88 U/L (39-117); Anion Gap 11 (12-20); Aspartate Amino Transferase 12 U/L (5-37); Bilirubin Total 0.7 mg/dL (0.0-1.0); Blood Urea Nitrogen 19 mg/dL (9-16); C Reactive Protein 0.26 mg/dL (< or = 0.50); Carbon Dioxide 26 mmol/L (22-29); Chloride 108 mmol/L (96-108); Estimated Glomerular Filt Rate 59; Glucose Fasting 131 mg/dL (60-99); Potassium 4.6 mmol/L (3.3-5.1); Sodium 140 mmol/L (135-145)
[2022-08-05 12:06] LABS: Erythrocyte Sedimentation Rate 23 MM/HR (0-15)
== END 2022-08-05 08:19 | disposition home or self-care (01) ==
LOC: HO.HMGCLDS 08:18
PROVIDERS: Absent Provider Internal Medicine Rheumatology; PCP Internal Medicine; Visit Provider Internal Medicine
DX: E11.9 Type 2 diabetes mellitus without complications (principal); E78.5 Hyperlipidemia, unspecified; M35.3 Polymyalgia rheumatica
CPT/HCPCS: 36415; 80053; 83036; 85025; 85652; 86140

== ENCOUNTER → 2022-08-20 09:09 | Outpatient (BNVA) | payer MEDICARE, SELFPAY | PROVIDERS: PCP Internal Medicine; Visit Provider Internal Medicine Rheumatology | DX: M19.049 Primary osteoarthritis, unspecified hand (principal); M75.81 Other shoulder lesions, right shoulder; M35.3 Polymyalgia rheumatica | CPT/HCPCS: 99212 ==

== ENCOUNTER → 2022-09-29 15:24 | Outpatient (BNVA) | payer MEDICARE, SELFPAY | PROVIDERS: PCP Internal Medicine; Visit Provider Urology | DX: N40.1 Benign prostatic hyperplasia with lower urinary tract symptoms (principal); N13.8 Other obstructive and reflux uropathy; Z79.899 Other long term (current) drug therapy | CPT/HCPCS: 99212 ==

== ENCOUNTER 2022-11-03 07:42 | Outpatient (REF) | payer MEDICARE, SELFPAY ==
[2022-11-03 12:04] LABS: Estimated Average Glucose 131 mg/dL; Hemoglobin A1c % 6.2 %
[2022-11-03 12:23] LABS: Alanine Aminotransferase 11 U/L (0-40); Albumin Level 3.9 g/dL (3.5-5.0); Alkaline Phosphatase 78 U/L (39-117); Anion Gap 10 (12-20); Aspartate Amino Transferase 14 U/L (5-37); Bilirubin Total 0.6 mg/dL (0.0-1.0); Blood Urea Nitrogen 17 mg/dL (9-16); Calcium 9.3 mg/dL (8.4-10.2); Carbon Dioxide 26 mmol/L (22-29); Chloride 106 mmol/L (96-108); Cholesterol 162 mg/dL; Estimated Glomerular Filt Rate 56; Glucose Fasting 142 mg/dL (60-99); HDL Cholesterol 38 mg/dL; LDL Cholesterol Calculated 99 mg/dl; Potassium 4.1 mmol/L (3.3-5.1); Sodium 138 mmol/L (135-145); Total Protein 7.3 g/dL (6.5-8.0); Triglycerides 126 mg/dL
[2022-11-03 12:47] LABS: Creatinine Urine 152.07 mg/dL; Microalbum/Creatinine Ratio Ur 3.9 ug/mg cr
== END 2022-11-03 07:43 | disposition home or self-care (01) ==
LOC: HO.HMGCLDS 07:42
PROVIDERS: PCP Internal Medicine; Visit Provider Internal Medicine
DX: E11.9 Type 2 diabetes mellitus without complications (principal); E78.5 Hyperlipidemia, unspecified; I10 Essential (primary) hypertension
CPT/HCPCS: 36415; 80053; 80061; 82043; 83036

== ENCOUNTER 2022-11-13 09:42 | Outpatient (AMB) | payer MEDICARE, SELFPAY ==
--- NOTE | 2022-11-13 09:49 | A.OFFPC_ITS ---
Vital Signs 11/13/22 09:51 Height 5 ft 9 in Weight 190 lb 6 oz BMI 28.1 BP 120/70 Blood Pressure Location Lt brachial Position Sitting Pulse 95 Pulse Source Pulse Oximeter Pulse Oximetry (%) 97 Oxygen Delivery Method Room Air Intake Visit Reasons: 3 month follow up Allergies No Known Allergies Allergy (Verified 11/13/22 09:54) Medication List - Last Reconciled 11/13/22 by Hiral Avery MD acetaminophen ER (8 Hour Pain Reliever) 650 mg PO Q12H PRN blood sugar diagnostic One touch Verio test strips QD finasteride 5 mg PO DAILY 90 days glipizide 5 mg (1/2 x 10 mg) PO BID hydrochlorothiazide 25 mg PO DAILY lancets ([employer] Lancets) check glucose once a day lisinopril 30 mg PO DAILY metformin 1,000 mg PO DAILY pravastatin 80 mg PO DAILY prednisone 1 mg orally ; Tobacco use date assessed: 11/13/22 Fall risk assessment: No Falls in past year Last assessed Fall Risk: 11/13/22 Dental Screening Dental Screen Date: 11/13/22 Did you have a dental visit in the last 12 months?: Yes Did you have a dental problem in the last 6 months where you did not have access to dental care?: No Was dental information given to patient?: Patient has dentist HPI 3 month follow up HPI Details Pt presents for f/ DM 2, HTN, hyperlipid. Patient took Ozempic for 6 weeks but reports having constipation, feeling tired with low blood glucose readings. [facility] Medical History (Updated 11/13/22 @ 10:25 by Hiral Avery MD) Annual physical exam Arthralgia Chronic bronchitis Dupuytren's contracture of both hands Elevated PSA ESR raised H/O mixed hyperlipidemia Hyperlipidemia Hypertension Insomnia Mild persistent asthma Osteoarthritis of lumbosacral spine with radiculopathy Osteoarthritis, hand Polymyalgia rheumatica Shoulder pain, bilateral Shoulder tendinitis Tubular adenoma Type 2 diabetes mellitus Surgical History H/O colonoscopy Family History Father Diabetes mellitus Mother HTN (hypertension) Sister No problems noted. Daughter No problems noted. Social History (Reviewed 08/20/22 @ 09:21 by JADEN [place] Housing: House Alcohol intake: never Patient Tobacco Use Status: Former Tobacco user Tobacco use type: Cigarette e-Cigarette/Vaping Use: Never Used Current occupational status: retired Cognitive needs: No Hearing needs: Yes Vision needs: No Questionnaire Thrive Questionnaire Date Thrive assessed: 05/13/22 NASIM-7 AMB Questionnaire NASIM-7 Date NASIM - 7 assessed: 05/13/22 Source: Developed by Drs. Sebastien Paz, Natalia Brown, Bharath Lubin and colleagues, with an educational rachele from [employer]. Review of Systems Const All systems reviewed & are unremarkable except as noted in HPI and below Reports no additional complaints Eyes Reports no additional complaints ENT Reports no additional complaints Card Reports no additional complaints Resp Reports no additional complaints GI Reports no additional complaints Reports no additional complaints Physical exam (Primary Care) Vital Signs: Last Vital Signs Pulse 95 11/13/22 09:51 BP 120/70 11/13/22 09:51 Pulse Ox 97 11/13/22 09:51 Oxygen Delivery Method Room Air 11/13/22 09:51 BMI result Body Mass Index 28.1 Tobacco/Smoking Status: Tobacco use Status Tobacco use date assessed 11/13/22 11/13/22 09:58 Patient Tobacco Use Status Former Tobacco user 11/13/22 09:49 Tobacco use type Cigarette 11/13/22 09:49 e-Cigarette/Vaping Use Never Used 11/13/22 09:49 Thrive Assessment: Date of Thrive Assessment Date Thrive assessed 05/13/22 11/13/22 09:49 Const General: no acute distress HENMT Head: Yes normal to inspection Face and sinus: Yes normal facial exam Throat: Yes posterior oropharynx normal Neck Neck: Yes no lymphadenopathy and Yes supple Resp Effort & Inspection: normal respiratory effort Auscultation: clear to auscultation bilaterally Cardio Rhythm: regular rhythm Heart sounds: S1 normal heart sound present and S2 normal heart sound present GI Inspection: Yes normal to inspection Palpation (GI): Soft to palpation Percussion: Yes normal to percussion Auscultation: normal bowel sounds Assessment and Plan Assessment & Plan (1) Tubular adenoma: Comment: will have colonoscopy 01/02 Code(s): D36.9 - Benign neoplasm, unspecified site (2) Polymyalgia rheumatica: Comment: onset 04/2021, tapering down prednisone Code(s): M35.3 - Polymyalgia rheumatica (3) Hypertension: Code(s): I10 - Essential (primary) hypertension Plan: Continue lisinopril and hydrochlorothiazide (4) Type 2 diabetes mellitus: Comment: Could not tolerate 2000 mg of metformin because of diarrhea, cannot afford Farxiga Code(s): E11.9 - Type 2 diabetes mellitus without complications Plan: A1c is down to 6.1. Patient was advised to restart Ozempic uncontrolled consti pation with increasing fiber and fluid intake. He was advised to decrease glipizide to half a tablet a day and if the fasting glucose is less than 100 in the morning to discontinue glipizide completely. Patient was advised to continue metformin follow ADA diet and increase physical activity. He will follow-up in 3 months (5) Hyperlipidemia: Code(s): E78.5 - Hyperlipidemia, unspecified Plan: cont statin Medications: Discontinued zolpidem Discontinued Reason: Doctor's Order 10 mg PO BEDTIME PRN 30 tabs 0RF insomnia Coding Level of Care Code Est Pt Level 4 (29354) Diagnoses Tubular adenoma D36.9 Polymyalgia rheumatica M35.3 Hypertension I10 Type 2 diabetes mellitus E11.9 Hyperlipidemia E78.5
[2022-11-13 09:51] VITALS: BP 120/70; PULSE 95; O2SAT 97; BMI 28.1
== END 2022-11-13 10:27 | disposition home or self-care (01) ==
PROVIDERS: Visit Provider Internal Medicine
DX: D36.9 Benign neoplasm, unspecified site (principal); M35.3 Polymyalgia rheumatica; I10 Essential (primary) hypertension; E11.9 Type 2 diabetes mellitus without complications; E78.5 Hyperlipidemia, unspecified
CPT/HCPCS: 99214

== ENCOUNTER 2022-11-25 11:12 | Outpatient (AMB) | payer MEDICARE, SELFPAY ==
[2022-11-25 11:30] VITALS: BMI 27.5
--- NOTE | 2022-11-25 11:30 | A.OFFVIS_ITS ---
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 Accompanied by: Self / Same As Patient Allergies No Known Allergies Allergy (Verified 11/25/22 11:30) Medication List - Last Reconciled 11/25/22 by MAURICIO Hernandez acetaminophen ER (8 Hour Pain Reliever) 650 mg PO Q12H PRN blood sugar diagnostic One touch Verio test strips QD finasteride 5 mg PO DAILY 90 days glipizide 5 mg (1/2 x 10 mg) PO BID hydrochlorothiazide 25 mg PO DAILY lancets ([employer] Lancets) check glucose once a day lisinopril 30 mg PO DAILY metformin 1,000 mg PO DAILY pravastatin 80 mg PO DAILY prednisone 1 mg orally ; semaglutide (Ozempic) 0.25 mg subcut QWEEK HPI 6 month fu HPI Details LAST VISIT Tubular adenoma Tubular adenoma without high-grade dysplasia or carcinoma found. Colorectal screening recommended to be repeated in 6-12 months. Status post colonoscopy Patient denies any ill effects from the prep, anesthesia or procedure itself. Reports to be doing well. Occasional loose stools depending on what he eats. Patient knows what usually makes him have loose stools and he is trying to avoid it. Tubular adenoma found and patient will need to repeat colonoscopy in 6-12 months Tubulovillous adenoma of large intestine History of tubulovillous adenoma on previous colonoscopy. Not found during last surveillance. I will see patient in 6 months to go over colonoscopy again and how to prep. Patient is agreeable to this plan and verbalizes understanding of instructions. He was given the opportunity to ask questions and all questions answered. ? Thank you for allowing me to participate in his care Plan Medications New docusate sodium 100 mg PO BEDTIME 90 caps 3RF K59.00 TODAY'S VISIT Patient is here today for follow-up and to discuss going for repeat colonoscopy. Patient had colonoscopy in the beginning of May and was found to have a tubulovillous adenoma and tubular adenoma, recommendation was made to repeat colonoscopy in 6-12 months. Patient denies any ill effects from the prep, anesthesia or procedure itself. Patient denies any issues after the procedure. Patient denies melena, hematochezia, unintentional weight loss or ribbon like stools. Patient reports that he was started on Ozempic and is becoming more constipated now. Patient denies any cardiac or respiratory symptoms. [facility] Medical History Annual physical exam Arthralgia Chronic bronchitis Dupuytren's contracture of both hands Elevated PSA ESR raised H/O mixed hyperlipidemia Hyperlipidemia Hypertension Insomnia Mild persistent asthma Osteoarthritis of lumbosacral spine with radiculopathy Osteoarthritis, hand Polymyalgia rheumatica Shoulder pain, bilateral Shoulder tendinitis Tubular adenoma Type 2 diabetes mellitus Surgical History H/O colonoscopy Family History Father Diabetes mellitus Mother HTN (hypertension) Sister No problems noted. Daughter No problems noted. Social History Housing: House Alcohol intake: never Patient Tobacco Use Status: Former Tobacco user Tobacco use type: Cigarette e-Cigarette/Vaping Use: Never Used Current occupational status: retired Cognitive needs: No Hearing needs: Yes Vision needs: No Review of Systems Const Denies weight gain and Denies weight loss ENT Reports no additional complaints, Denies dysphagia and Denies odynophagia Card Reports no additional complaints Resp Reports no additional complaints GI Denies abdominal pain, Denies belching, Denies melena, Denies bloating, Reports constipation, Denies dysphagia, Denies excessive flatus, Denies dyspepsia, Denies heartburn, Denies diarrhea, Denies loose stools, Denies nausea, Denies odynophagia and Denies vomiting Reports no additional complaints Musc Reports no additional complaints Neuro Reports no additional complaints Psych Reports no additional complaints Endo Reports no additional complaints Physical Exam Vital Signs: BMI result Body Mass Index 27.5 Const General: healthy appearing, no acute distress and well developed Nutritional Appearance: well nourished Orientation/consciousness: patient oriented x3 HEENT Head: Yes normal to inspection, Yes normocephalic and Yes atraumatic Face and sinus: Yes normal facial exam Mouth: Normal oral and palatal mucosa present Throat: Yes posterior oropharynx normal, Yes tonsils normal and Yes uvula midline Eyes General: appearance normal, both eyes and all related structures Neck Neck: Yes normal visual inspection, Yes full ROM and Yes trachea midline Thyroid: Thyroid normal Resp Effort & Inspection: normal respiratory effort, able to speak in complete sentences, no tracheal deviation and symmetric chest movement Auscultation: clear to auscultation bilaterally Cardio Rate: regular rate Heart sounds: S1 normal heart sound present and S2 normal heart sound present GI Inspection: Yes normal to inspection and No distended Palpation (GI): Soft to palpation, not firm, nontender and No hepatosplenomegaly present Auscultation: normal bowel sounds General: Yes no CVA tenderness Back/Spine/Pelvis Back: no CVA tenderness Skin General skin exam: elasticity normal, turgor normal and dry skin Neuro General: patient oriented x3 Psych Appearance: grossly normal Mental Status: mental status grossly normal Speech and movement: Normal speech and movement present Assessment & Plan Assessment & Plan (1) Tubular adenoma: Code(s): D36.9 - Benign neoplasm, unspecified site (2) Tubulovillous adenoma of large intestine: Code(s): D12.6 - Benign neoplasm of colon, unspecified (3) Screen for colon cancer: Code(s): Z12.11 - Encounter for screening for malignant neoplasm of colon (4) Constipation: Code(s): K59.00 - Constipation, unspecified Plan As mentioned above in HPI patient had colonoscopy in May that showed tubular adenoma and tubulovillous adenoma without high-grade dysplasia or carcinoma. Will schedule patient today for colonoscopy. Patient denies any ill effects from the prep or anesthesia. Patient reports constipation. Will start him on Dulcolax. Patient was started on Ozempic and reports that his bowels definitely have slowed down. Patient takes Ozempic every Wednesday will try to book his procedure on . Patient denies any cardiac or respiratory symptoms. Denies any history of sleep apnea. Not on any anticoagulation medication. Discussed with patient the importance of good bowel prep and clear liquid diet day before the procedure. What to expect before during and after the procedure discussed with patient. I will see him after the procedure, sooner on as needed basis. Patient is agreeable to plan of care and verbalizes understanding of instructions. He was given the opportunity to ask questions all questions answered Thank you for allowing me to participate in his care Medications: New bisacodyl (Dulcolax (bisacodyl)) 10 mg (2 x 5 mg) PO BEDTIME 180 tabs 4RF polyethylene glycol 3350 (Miralax) As directed by gastroenterology department at [facility] 238 grams PO ONCE 238 grams 0RF Z12.11 - Encounter for screening for malignant neoplasm of colon Coding Level of Care Code Est Pt Level 3 (07851) Diagnoses Tubular adenoma D36.9 Tubulovillous adenoma of large intestine D12.6 Screen for colon cancer Z12.11 Constipation K59.00 Time Spent (min) 30 Comment 20 minutes spent with patient and additional 10 minutes spent reviewing his records
== END 2022-11-25 12:01 | disposition home or self-care (01) ==
PROVIDERS: PCP Internal Medicine; Visit Provider Nurse Practitioner Family
DX: D36.9 Benign neoplasm, unspecified site (principal); D12.6 Benign neoplasm of colon, unspecified; Z12.11 Encounter for screening for malignant neoplasm of colon; K59.00 Constipation, unspecified
CPT/HCPCS: 99213

== ENCOUNTER → 2022-11-25 11:12 | Outpatient (BNVA) | payer MEDICARE, SELFPAY | PROVIDERS: PCP Internal Medicine; Visit Provider Nurse Practitioner Family | DX: Z12.11 Encounter for screening for malignant neoplasm of colon (principal); D36.9 Benign neoplasm, unspecified site; D12.6 Benign neoplasm of colon, unspecified; K59.00 Constipation, unspecified | CPT/HCPCS: 99212 ==

== ENCOUNTER 2023-02-04 06:07 | Day surgery (SDC) | payer MEDICARE, SELFPAY ==
[2023-02-01 12:49] VITALS: BMI 28.1
--- NOTE | 2023-02-03 11:58 | HO.ANESPROP2 ---
Documented by User: Rama Hensley NP 02/03/23 12:02 HPI - Anesthesia Eval Consult details Narrative: 72yo M for Colonoscopy PMR - prednisone Anesthesia Pre-Procedure Meds Is the patient on any of the following meds?: Semaglutide (Ozempic) (Last dose 01/22/23) PMFSH Active Problems Active Problems: All Active Problems (Updated 11/25/22 @ 12:02 by Yusra Alvarez, [facility]) Tubular adenoma (Acute) BPH w urinary obs/LUTS (Acute) Tendinitis of right rotator cuff (Acute) Polymyalgia rheumatica (Acute) Osteoarthritis, hand (Acute) ESR raised (Acute) Osteoarthritis of lumbosacral spine with radiculopathy (Acute) Hypertension (Acute) Type 2 diabetes mellitus (Acute) Elevated PSA (Acute) Hyperlipidemia (Acute) Past Medical History Medical History Tubular adenoma Polymyalgia rheumatica Osteoarthritis, hand ESR raised Shoulder pain, bilateral Osteoarthritis of lumbosacral spine with radiculopathy Arthralgia Shoulder tendinitis Annual physical exam Elevated PSA Hyperlipidemia Chronic bronchitis H/O mixed hyperlipidemia Insomnia Dupuytren's contracture of both hands Mild persistent asthma Type 2 diabetes mellitus Hypertension Family History Family History Father Diabetes mellitus Mother HTN (hypertension) Sister No problems noted. Daughter No problems noted. Family history of problems with anesthesia: No Surgical History Surgical History H/O colonoscopy History of Problems with Anesthesia: No Social History Social History Housing: House Alcohol intake: never Patient Tobacco Use Status: Former Tobacco user Tobacco use type: Cigarette e-Cigarette/Vaping Use: Never Used Are you DNR?: No Advance Directives: No Advance Directives Information Provided: Yes Nutrition Risks: No Nutritional Risk Current occupational status: retired Cognitive needs: No Hearing needs: Yes Vision needs: No Meds Allergies Allergy/AdvReac Type Severity Reaction Status Date / Time No Known Allergies Allergy Verified 02/04/23 06:44 Home Medications Medication Instructions Recorded Confirmed Last Taken Type semaglutide 0.25 mg or 0.5 mg (2 0.25 mg subcut QWEEK 11/25/22 02/04/23 01/22/23 History mg/3 mL) subcutaneous pen injector (Ozempic) Exam Exam Date and Time: February 03, 2023 1158 Height,Weight and Vital Signs: Height 5 ft 9 in Weight 86.183 kg Assessment and Plan Assessment Anesthesia Assessment: Chart Reviewed Final Anesthetic Review Family History of Problems with Anesthesia: No History of Problems with Anesthesia: No Documented by User: Srinivasan Silva MD 02/04/23 08:25 HPI - Anesthesia Eval Anesthesia Pre-Procedure Meds If Yes to any meds - educate patient: Pt education - increased risk of aspiration and Pt education - possibility of cancelled proc at provider's discretion PMFSH Past Medical History Medical History Tubular adenoma Polymyalgia rheumatica Osteoarthritis, hand ESR raised Shoulder pain, bilateral Osteoarthritis of lumbosacral spine with radiculopathy Arthralgia Shoulder tendinitis Annual physical exam Elevated PSA Hyperlipidemia Chronic bronchitis H/O mixed hyperlipidemia Insomnia Dupuytren's contracture of both hands Mild persistent asthma Type 2 diabetes mellitus Hypertension Family History Family History Father Diabetes mellitus Mother HTN (hypertension) Sister No problems noted. Daughter No problems noted. Surgical History Surgical History H/O colonoscopy Social History Social History Housing: House Alcohol intake: never Patient Tobacco Use Status: Former Tobacco user Tobacco use type: Cigarette e-Cigarette/Vaping Use: Never Used Are you DNR?: No Advance Directives: No Advance Directives Information Provided: Yes Nutrition Risks: No Nutritional Risk Current occupational status: retired Cognitive needs: No Hearing needs: Yes Vision needs: No Meds Allergies Allergy/AdvReac Type Severity Reaction Status Date / Time No Known Allergies Allergy Verified 02/04/23 06:44 Home Medications Medication Instructions Recorded Confirmed Last Taken Type semaglutide 0.25 mg or 0.5 mg (2 0.25 mg subcut QWEEK 11/25/22 02/04/23 01/22/23 History mg/3 mL) subcutaneous pen injector (Ozempic) Exam Airway Mallampati Class: II TM Dist: >3cm Neck ROM: Full Denture: Upper Loose/Missing/Broken Teeth: Yes Assessment and Plan Assessment Anesthesia Assessment: Anesthesia Plan Discussed Final Anesthetic Review NPO: Yes ASA Class: III Final Preanesthetic Review: No Changes in Pt Med Stat, Meds/Allgs Chart Reviewed, Consent Obtained/Reviewed and Anes Risks/Benef Reviewed Patient Risk: Intermediate Procedure Risk: Low Anesthetic Plan Anesthetic Plan: MAC: Disposition: Standard PACU
[2023-02-04] MEDS: Lactated Ringers 1,000 ML 100 ML IVCONT (06:47)
[2023-02-04 06:55] LABS: Glucose, Whole Blood 128 mg/dL (60-115)
[2023-02-04 06:58] VITALS: BP 142/65; PULSE 91; RESP 18; TEMP 36.6; O2SAT 98
--- NOTE | 2023-02-04 07:52 | P.HPSUR_ITS ---
Pre-Procedural Eval Section A Date of Service: 02/04/23 Section B Chief Complaint: Benign neoplasm of colon, Relevant Family History (Specify if Yes): No Relevant Social History: None Present Medications: see Short Stay Collaborative assessment Medical History: Significant History (Arthralgia Chronic bronchitis Dupuytren's contracture of both hands Elevated PSA ESR raised H/O mixed hyperlipidemia Hyper lipidemia Hypertension Insomnia Mild persistent asthma Osteoarthritis of lumbosacral spine with radiculopathy Osteoarthritis, hand Polymyalgia rheumatica Shoulder pain, bilateral) History of Previous Operations: Relevant previous surgery/procedure and date(s) (colonoscopy) Allergies: Allergies Allergy/AdvReac Type Severity Reaction Status Date / Time No Known Allergies Allergy Verified 02/04/23 06:44 Review of Systems Sugical H&P ROS: Negative: Constitution, Cardiovascular, Respiratory, Neurological, Psychiatric, Hem-Onc, Allergic/Immunologic, Gastrointestinal, Genitourinary, Musculoskeletal, Integumentary, Endocrine and Eyes/Ears/Nose/Throat Exam Surgical H&P Exam: Normal: HEENT, Normal: Heart, Normal: Lungs, Normal: Extremities, Normal: Abdomen, Normal: Skin and Normal: Neurological Plan Diagnosis/Plan: Unchanged I have reviewed the history and physical and performed a pertinent physical examination on my patient. No changes have occurred unless specified. Time Spent With Patient Time: Total time managing care of this patient today ____ minutes.
--- NOTE | 2023-02-04 08:18 | P.OP_ITS ---
Operative Note Operative Note Date of Service: 02/04/23 Narrative: Operative Information Procedure Description: Colonoscopy Indication: hx of colon polyps Anesthesia: MAC COLONOSCOPY Instrument: Olympus variable stiffness ADULT scope 190L Colonoscopy Monitoring: Vital signs and clinical assessment, continuous EKG monitoring, Pulse oximetry, Carbon Dioxide monitoring and blood pressure monitoring were done throughout the procedure. Colon withdrawal time was 8 minutes. Procedure: The patient was placed in the left lateral decubitis position and pre-procedure medications were administered. After a digital rectal examination of the ano-rectum, the video colonoscope was inserted into the rectum and advanced through the colon to the cecum/TI. The colonoscope was slowly withdrawn in a retrograde panoramic fashion and the colon mucosa was carefully examined including a retroflexed view of the rectum. Findings and interventions are described below. Procedure Difficulty: moderate, turned on back and reached cecum easily Findings: Terminal Ileum-normal Cecum: several AVM noted Ascending Colon: scattered AVM noted, x2 sessile polyps. one was 3-5 mm removed with cold forceps, and the other wa 8-10 mm removed with cold snare Transverse Colon - one AVM noted. Descending Colon:normal Sigmoid Colon: normal Rectum: Retroflexion with small internal hemorrhoids, grade I Anorectum - normal Colon preparation: Brandon Bowel Preparation Scale Right colon; 2 Transverse colon: 3 Left colon; 3 (0 = Unprepared colon segment with mucosa not seen due to solid stool that cannot be cleared. 1 = Portion of mucosa of the colon segment seen, but other areas of the colon segment not well seen due to staining, residual stool and/or opaque liquid. 2 = Minor amount of residual staining, small fragments of stool and/or opaque liquid, but mucosa of colon segment seen well. 3 = Entire mucosa of colon segment seen well with no residual staining, small fragments of stool or opaque liquid) Impression and Post Procedure Diagnosis: polyps internal hemorrhoids AVM Plan: High fiber diet leaflet Avoid straining at stool, epsom salts and sitz bath, anusol supps or cream Repeat Colonoscopy in 3-4 years due to hx of polyps or earlier if clinically indicated Above findings were reviewed with the patient and relevant handouts were provided if indicated.
[2023-02-04 08:58] VITALS: BP 114/53; PULSE 80; RESP 16; TEMP 36.1; O2SAT 96
[2023-02-04 09:13] VITALS: BP 117/64; PULSE 76; RESP 16; TEMP 36.1; O2SAT 97
== END 2023-02-04 09:37 | disposition home or self-care (01) ==
PROVIDERS: PCP Internal Medicine; Visit Provider Internal Medicine Gastroenterology
PROC: 0DJD8ZZ Inspection of Lower Intestinal Tract, Via Natural or Artificial Opening Endoscopic (ICD-10-PCS; CPT 45378; principal; 2023-02-04 08:30)
DX: Z12.11 Encounter for screening for malignant neoplasm of colon (principal); D12.2 Benign neoplasm of ascending colon; K55.20 Angiodysplasia of colon without hemorrhage; K64.0 First degree hemorrhoids; Z86.010 Personal history of colon polyps; E11.9 Type 2 diabetes mellitus without complications; I10 Essential (primary) hypertension; E78.5 Hyperlipidemia, unspecified; N40.1 Benign prostatic hyperplasia with lower urinary tract symptoms; Z87.891 Personal history of nicotine dependence; Z79.899 Other long term (current) drug therapy; Z79.84 Long term (current) use of oral hypoglycemic drugs
CPT/HCPCS: 45380; 45385; 82947; 88305

== ENCOUNTER → 2023-02-04 06:07 | Outpatient (BNV) | payer MEDICARE, SELFPAY | PROVIDERS: PCP Internal Medicine; Visit Provider Internal Medicine Gastroenterology | DX: Z12.11 Encounter for screening for malignant neoplasm of colon (principal); Z86.010 Personal history of colon polyps; D12.2 Benign neoplasm of ascending colon; K64.0 First degree hemorrhoids | CPT/HCPCS: 45380; 45385 ==

== ENCOUNTER 2023-02-17 08:00 | Outpatient (REF) | payer MEDICARE, SELFPAY ==
--- NOTE | ~2023-02-17 | XR_ITS ---
EXAMINATION: XR HIP, RIGHT CLINICAL INFORMATION: Pain in right hip. COMPARISON: X-ray lumbar spine 11/29/2020. TECHNIQUE: Two views of the right hip and AP view of the pelvis. FINDINGS: Degenerative changes on very limited images of the lower lumbar spine. The bones are diffusely demineralized. Moderate degenerative changes in the right hip with joint space narrowing and hypertrophic change. Small soft tissue calcifications adjacent to the right hip and inferior pubic ramus. Moderate degenerative changes on single AP view of the left hip. Sclerotic focus overlying the left intertrochanteric region, possibly representing a bone island. XR/XR hip RT w PEL1V IMPRESSION: 1. Degenerative changes on very limited images of the lower lumbar spine. The bones are diffusely demineralized. 2. Moderate degenerative changes left hip. 3. The bones are diffusely demineralized. MRI should be considered for further evaluation if there is concern for fracture or other underlying pathology.
[2023-02-17 11:15] LABS: MANUAL DIFF FLAG NO
[2023-02-17 11:30] LABS: Basophils Absolute Auto 0.1 X10*3/uL (0.0-0.2); Basophils Percent Auto 0.5 % (0-2); Eosinophils Absolute Auto 0.5 X10*3/uL (0.0-0.4); Eosinophils Percent Auto 4.5 % (0-4); Hematocrit 39.8 % (42.0-52.0); Hemoglobin 12.6 g/dl (14.0-18.0); Imm Gran Abs Auto 0.04 X10*3/uL (0.00-0.03); Imm Gran Pct Auto 0.4 % (0.0-0.4); Lymphocytes Absolute Auto 2.8 X10*3/uL (1.2-4.9); Lymphocytes Percent Auto 26.7 % (20-40); Mean Corpuscular HGB Conc 31.7 g/dl (31.0-36.0); Mean Corpuscular Hemoglobin 28.2 pg (27.0-33.0); Mean Platelet Volume 10.3 fL (9.4-12.4); Monocytes Absolute Auto 1.1 X10*3/uL (0.1-1.2); Monocytes Percent Auto 10.1 % (2-11); Neutrophils Absolute Auto 6.1 x10*3/uL (2.0-8.3); Neutrophils Percent Auto 57.8 % (45-73); Platelet Count 246 X10*3/uL (160-400); Red Blood Count 4.47 X10*6/uL (4.60-5.80); Red Cell Distribution Width 13.7 % (11.0-16.0); White Blood Count 10.5 X10*3/uL (4.8-10.8)
[2023-02-17 11:43] LABS: Estimated Average Glucose 137 mg/dL; Hemoglobin A1c % 6.4 % (<6.0)
[2023-02-17 11:49] LABS: C Reactive Protein 0.83 mg/dL (< or = 0.50)
[2023-02-17 11:53] LABS: Alanine Aminotransferase 16 U/L (0-40); Alkaline Phosphatase 69 U/L (39-117); Anion Gap 13 (12-20); Aspartate Amino Transferase 18 U/L (5-37); Bilirubin Total 0.5 mg/dL (0.0-1.0); Blood Urea Nitrogen 19 mg/dL (9-16); Calcium 9.3 mg/dL (8.4-10.2); Carbon Dioxide 27 mmol/L (22-29); Chloride 105 mmol/L (96-108); Cholesterol 153 mg/dL (<200); Estimated Glomerular Filt Rate 50; Glucose Fasting 158 mg/dL (60-99); HDL Cholesterol 36 mg/dL (>40); Iron 50 mcg/dL (45-160); LDL Cholesterol Calculated 90 mg/dL (<100); Percent Iron Saturation 18 % (15-50); Potassium 4.1 mmol/L (3.3-5.1); Sodium 141 mmol/L (135-145); Total Iron Binding Capacity 278 mcg/dL (228-428); Total Protein 7.8 g/dL (6.5-8.0); Triglycerides 135 mg/dL (<150); Unsaturated Iron Binding 228 ug/dL
[2023-02-17 12:07] LABS: Erythrocyte Sedimentation Rate 27 MM/HR (0-15)
[2023-02-17 12:32] LABS: Folate 7.9 ng/mL (> or = 4.0); Vitamin B12 335 pg/mL (200-900)
== END 2023-02-17 08:01 | disposition home or self-care (01) ==
LOC: HO.HMGCX 08:00
PROVIDERS: Absent Provider Internal Medicine Rheumatology; PCP Internal Medicine; Visit Provider Internal Medicine
DX: M25.551 Pain in right hip (principal); M35.3 Polymyalgia rheumatica; I10 Essential (primary) hypertension; E11.9 Type 2 diabetes mellitus without complications; E78.5 Hyperlipidemia, unspecified
CPT/HCPCS: 36415; 73502; 80053; 80061; 82607; 82746; 83036; 83540; 85025; 85652; 86140

== ENCOUNTER 2023-02-17 08:30 | Outpatient (AMB) | payer MEDICARE, SELFPAY ==
[2023-02-17 08:33] VITALS: BP 110/56; PULSE 90; O2SAT 95; BMI 27.6
--- NOTE | 2023-02-17 08:33 | A.OFFVIS_ITS ---
Intake Vital Signs 02/17/23 08:33 Height 5 ft 9 in Weight 187 lb BMI 27.6 BP 110/56 L Blood Pressure Location Rt brachial Position Sitting Pulse 90 Pulse Source Pulse Oximeter Pulse Oximetry (%) 95 Oxygen Delivery Method Room Air Intake Visit Reasons: SWV G0439 Allergies No Known Allergies Allergy (Verified 02/17/23 08:36) Medication List - Last Reconciled 02/17/23 by Hiral Avery MD blood sugar diagnostic One touch Verio test strips QD docusate sodium 100 mg PO BEDTIME finasteride 5 mg PO DAILY 90 days glipizide 5 mg PO DAILY hydrochlorothiazide 25 mg PO DAILY lancets check glucose once a day lisinopril 30 mg PO DAILY metformin 1,000 mg PO DAILY pravastatin 80 mg PO DAILY semaglutide (Ozempic) 0.25 mg subcut QWEEK HPI SWV G0439 HPI Details Pt presents for annual. Initiated the conversation about Advanced Directives. Advanced Directives help? patients prepare for current and future decisions about their medical treatment? and place of care. Discussed with patient that it is a process where a patients? current condition and prognosis are reviewed, their wishes for information? regarding their illness are elicited, and likely medical dilemmas are presented? and options discussed. The form can be amended as needed, reviewed yearly and? make changes as needed IPPE/AWV ? year old presents? for her ? Annual? Wellness Visit, initial visit.? Medical / Social History Reviewed? Past Medical History ?Yes? . ? [place]? of Care / Care Team list updated ?Yes . ? Surgical/Hospitalization? History ?Yes . ? Current Medications? (including OTC and supplements) ?Yes . ? Family History ?Yes? . ? Tobacco? Control form ?Yes . ? AUDIT-C (Alcohol use) form? ?Yes . ? Illicit drug use in Social? History ?Yes . ? Current diagnosis of? depression? ?No ? Appropriate PHQ2/PHQ9? completed ?Yes . ? Data entered by ?Medical? Laundry Machine Mechanic and reviewed by provider ? Fall Risk ? Fall? History? Have you had any falls with? injury in the past year? ?No . ? Have you had two or more? falls in the past year? ?No . ? Fall Risk Assessment: ?No? falls in the past year . ? HRA filled out by? the patient, reviewed by Provider and scanned. ? IPPE/AWV ? Balance? [place]? ?Yes . ? Tandem? walk ?Yes . ? Walk and? Turn ?Yes . ? Rise from? sit to stand ?Yes . ?Vision? Corrective? lens ?Yes ? Vision? screen ? Up-to-date, has an appointment [] for vision? screening and glaucoma screening ?Hearing? Whisper? test ?pass .? Initiated the conversation about Advanced Directives. Advanced Directives help? patients prepare for current and future decisions about their medical treatment? and place of care. Discussed with patient that it is a process where a patients? current condition and prognosis are reviewed, their wishes for information? regarding their illness are elicited, and likely medical dilemmas are presented? and options discussed. The form can be amended as needed, reviewed yearly and? make changes as needed Written? Plan?Completed. See Patient? Documents. PENDING SALE TO [facility] Medical History Tubular adenoma Polymyalgia rheumatica Osteoarthritis, hand ESR raised Shoulder pain, bilateral Osteoarthritis of lumbosacral spine with radiculopathy Arthralgia Shoulder tendinitis Annual physical exam Elevated PSA Hyperlipidemia Chronic bronchitis H/O mixed hyperlipidemia Insomnia Dupuytren's contracture of both hands Mild persistent asthma Type 2 diabetes mellitus Hypertension Surgical History H/O colonoscopy Family History Father Diabetes mellitus Mother HTN (hypertension) Sister No problems noted. Daughter No problems noted. Social History Housing: House Alcohol intake: never Patient Tobacco Use Status: Former Tobacco user Tobacco use type: Cigarette e-Cigarette/Vaping Use: Never Used Current occupational status: retired Cognitive needs: No Hearing needs: Yes Vision needs: No Questionnaire Medicare Wellness Checkup [age] What gender do you identify with?: male During the past 4 weeks, how much have you been bothered by emotional problems such as feeling anxious, depressed, irritable, sad or downhearted, and blue?: not at all During the past 4 weeks, has your physical & emotional health limited your social activities with family, friends, neighbors, or groups?: not at all During the past 4 weeks, how much bodily pain have you generally had?: very mild pain During the past 4 weeks, was someone available to help you if you needed & wanted help?: yes, as much as I wanted During the past 4 weeks, what was the hardest physical activity you could do for at least 2 minutes?: moderate Can you get to places out of walking distance without help? (For eg., can you travel alone on buses, taxis or drive your car?): Yes Can you go shopping for groceries or clothes without someone's help?: Yes Can you prepare your own meals?: Yes Can you do your housework without help?: Yes Because of any health problems, do you need the help of another person with your personal care needs such as eating, bathing, dressing or getting around the house?: No Can you handle your own money without help?: Yes During the past 4 weeks, how would you rate your health in general?: good During the past 4 weeks how have things been going for you?: good & bad parts about equal Are you having difficulties driving your car?: no Do you always fasten your seat belt when you are in a car?: yes, usually During past 4 weeks, have you been bothered by the following: never: Falling or dizzy when standing up, Trouble eating well? and Tiredness or fatigue?, seldom: Problems using the telephone? and sometimes: Sexual problems? and Teeth or denture problems? Have you fallen 2 or more times in the past year?: No Are you afraid of falling?: No Are you a smoker?: no During the past 4 weeks, how many drinks of wine, beer, or other alcoholic beverages did you have?: no alcohol at all Do you exercise for about 20 minutes 3 or more times a week?: no, I usually do not exercise this much Have you been given information to help with the following?: yes: Keeping track of your medications? and no: Hazards in your house that might hurt you? How often do you have trouble taking medicines the way you have been told to take them?: I always take medicine as prescribed How confident are you that you can control & manage most of your health problems?: very confident What is your race?: White Mini Mental State Exam (MMSE) Orientation What is the (year) (season) (date) (day) (month)?: year, season, date, day and month Where are we (state) (county) (town or city) (hospital) (floor)?: state, county, town or city, hospital/clinic and floor Registration Name of 3 unrelated objects clearly and slowly, then ask patient to repeat all 3 of them. (1st repeat determines score. Make sure they can repeat all three): object 1, object 2 and object 3 Attention & Calculation (CHOOSE ONE) Spell WORLD backwards (DLROW): 5 letters Recall Ask patient to repeat the 3 items from question #3.: object 1, object 2 and object 3 Language Show patient a wristwatch & ask what it is. Repeat for pencil.: watch and pencil Ask the patient to repeat the phrase 'No ifs, ands, or buts' after you.: correct Ask the patient to 'take a piece of paper with their right hand' 'fold paper in half' 'place paper on floor': take paper in right hand, fold paper in half and place paper on floor Print the sentence 'CLOSE YOUR EYES' on a piece. If patient actually closes eyes then score.: followed written direction Give patient a blank piece of paper & ask to write a sentence. Score if it contains a noun & verb.: sentence contains subject and verb Score Score: 29 Activity of Daily Living Bathing - sponge bath, tub bath or shower: receives no assistance (gets in/out by self, if usual bathing means Dressing - getting clothes from closets & drawers, including inner/outer garments & fasteners.: gets clothes & gets completely dressed without help Toileting - going to the 'toilet room' for urine/bowel elimination & cleaning self/arranging clothes: goes to toilet room, cleans self, arranges clothes without help Transfer: moves in & out of bed and chair without help (may use support object) Continence: controls urination/bowel movements completely by self Feeding: feeds self without help Total Score: 0 Information obtained from: patient Using telephone: independent Traveling: independent Shopping: independent Preparing meals: independent Housework: independent Taking medicine: independent Managing money: independent PHQ-9 Over the last 2 weeks, how often have you been bothered by any of the following problems? 1. Little interest or pleasure in doing things: not at all 2. Feeling down, depressed, or hopeless: not at all 3. Trouble falling or staying asleep, or sleeping too much: not at all 4. Feeling tired or having little energy: several days 5. Poor appetite or overeating: several days 6. Feeling bad about yourself - or that you are a failure or have let yourself or your family down: not at all 7. Trouble concentrating on things, such as reading the newspaper or watching television: not at all 8. Moving or speaking so slowly that other people could have noticed. Or the o pposite - being so fidgety or restless that you have been moving around a lot more than usual: not at all 9. Thoughts that you would be better off or of hurting yourself in some way: not at all Total score: 2 Depression Screening Interpretation: Negative Depression Screening Done: Yes Source: Developed by Drs. Sebastien Paz, Natalia Brown, Bharath Lubin and colleagues, with an educational rachele from [employer]. Review of Systems Const All systems reviewed & are unremarkable except as noted in HPI and below Reports no additional complaints Eyes Reports no additional complaints ENT Reports no additional complaints Card Reports no additional complaints Resp Reports no additional complaints GI Reports no additional complaints Reports no additional complaints Physical Exam Vital Signs: Last Vital Signs Pulse 90 02/17/23 08:33 BP 110/56 L 02/17/23 08:33 Pulse Ox 95 02/17/23 08:33 Oxygen Delivery Method Room Air 02/17/23 08:33 BMI result Body Mass Index 27.6 Const General: no acute distress HEENT Head: Yes normal to inspection Ears: hearing grossly normal bilaterally Eyes General: appearance normal, both eyes and all related structures Neck Neck: Yes no lymphadenopathy and Yes supple Resp Effort & Inspection: normal respiratory effort Auscultation: clear to auscultation bilaterally Cardio Rhythm: regular rhythm Heart sounds: S1 normal heart sound present and S2 normal heart sound present GI Inspection: Yes normal to inspection Palpation (GI): Soft to palpation Percussion: Yes normal to percussion Auscultation: normal bowel sounds Extrem Other: DM foot Exam is intact monofilament vibration sensation intact bilaterally, decreased range of motion both hips, reproducible tenderness in the right trochanteric region General: Yes no clubbing, cyanosis or edema Assessment & Plan Assessment & Plan (1) Polymyalgia rheumatica: Comment: onset 04/2021, tapering down prednisone Code(s): M35.3 - Polymyalgia rheumatica Plan: Follow-up with Rheumatology (2) Hypertension: Code(s): I10 - Essential (primary) hypertension Plan: Continue current medications (3) Type 2 diabetes mellitus: Comment: Could not tolerate 2000 mg of metformin because of diarrhea, cannot afford Farxiga Code(s): E11.9 - Type 2 diabetes mellitus without complications Plan: Patient will have fasting labs today including A1c, he will continue ADA diet , regular exercise and current medications and follow-up in 4 months (4) Hyperlipidemia: Code(s): E78.5 - Hyperlipidemia, unspecified Plan: Continue statin (5) Hip pain, right: Code(s): M25.551 - Pain in right hip Plan: check Hip XR and try trochanteric bursitis stretching exercises. If the symptoms persist patient will be referred to physical therapy Orders: Orders Comprehensive [place]. Panel Fast Today E11.9 - Type 2 diabetes mellitus without complications, E78.5 - Hyperlipidemia, unspecified, I10 - Essential (primary) hypertension, M35.3 - Polymyalgia rheumatica Microalbumin, Random (w Creat) Today E11.9 - Type 2 diabetes mellitus without complications, E78.5 - Hyperlipidemia, unspecified, I10 - Essential (primary) hypertension, M35.3 - Polymyalgia rheumatica IRON PROFILE Today E11.9 - Type 2 diabetes mellitus without complications, E78.5 - Hyperlipidemia, unspecified, I10 - Essential (primary) hypertension, M35.3 - Polymyalgia rheumatica Hemoglobin A1c Today E11.9 - Type 2 diabetes mellitus without complications Comprehensive [place]. Panel Fast 4 Months E11.9 - Type 2 diabetes mellitus without complications, E78.5 - Hyperlipidemia, unspecified, I10 - Essential (primary) hypertension Hemoglobin A1c 4 Months E11.9 - Type 2 diabetes mellitus without complications, E78.5 - Hyperlipidemia, unspecified, I10 - Essential (primary) hypertension Complete Blood Count Auto Diff Today E11.9 - Type 2 diabetes mellitus without complications, E78.5 - Hyperlipidemia, unspecified, I10 - Essential (primary) hypertension, M35.3 - Polymyalgia rheumatica Lipid Panel Today E11.9 - Type 2 diabetes mellitus without complications, E78.5 - Hyperlipidemia, unspecified, I10 - Essential (primary) hypertension, M35.3 - Polymyalgia rheumatica Vitamin B12 and Folate Today E11.9 - Type 2 diabetes mellitus without complications, E78.5 - Hyperlipidemia, unspecified, I10 - Essential (primary) hypertension, M35.3 - Polymyalgia rheumatica XR hip RT w PEL1V Today M25.551 - Pain in right hip Complete Blood Count Auto Diff 4 Months E11.9 - Type 2 diabetes mellitus without complications, E78.5 - Hyperlipidemia, unspecified, I10 - Essential (primary) hypertension Lipid Panel 4 Months E11.9 - Type 2 diabetes mellitus without complications, E78.5 - Hyperlipidemia, unspecified, I10 - Essential (primary) hypertension Microalbumin, Random (w Creat) 4 Months E11.9 - Type 2 diabetes mellitus without complications, E78.5 - Hyperlipidemia, unspecified, I10 - Essential (primary) hypertension Medications: Changed From glipizide 5 mg (1/2 x 10 mg) PO BID 90 tabs 3RF To glipizide 5 mg PO DAILY Quality Reporting (2019) Depression/Bipolar (159/160/161/177) PHQ-9: Total score: 2 Coding Level of Care Code Medicare Subsequent (G0439) Diagnoses Polymyalgia rheumatica M35.3 Hypertension I10 Type 2 diabetes mellitus E11.9 Hyperlipidemia E78.5 Hip pain, right M25.551 CPT Codes Advance Care Planning - Advance Care Planning discussion: On file, no changes ([id number]) Advance Care Planning - Time spent: 1-15 minutes, not on file ([id number]) Advance Care Planning Advance Care Planning discussion: On file, no changes Forms completed: Health Care Proxy Time spent: 1-15 minutes, not on file
== END 2023-02-17 09:26 | disposition home or self-care (01) ==
PROVIDERS: Visit Provider Internal Medicine
DX: M35.3 Polymyalgia rheumatica (principal); I10 Essential (primary) hypertension; E11.9 Type 2 diabetes mellitus without complications; E78.5 Hyperlipidemia, unspecified; M25.551 Pain in right hip; Z00.00 Encounter for general adult medical examination without abnormal findings
CPT/HCPCS: 1123F; 1124F; G0439

== ENCOUNTER 2023-02-18 07:00 | Outpatient (REF) | payer MEDICARE, SELFPAY ==
[2023-02-18 12:02] LABS: Creatinine Urine 98.38 mg/dL; Microalbumin Urine < 5.0 mg/L
== END 2023-02-18 07:01 | disposition home or self-care (01) ==
LOC: HO.HMGCLNP 07:00
PROVIDERS: PCP Internal Medicine; Visit Provider Internal Medicine
DX: M35.3 Polymyalgia rheumatica (principal); M25.551 Pain in right hip; M54.50 Low back pain, unspecified; M75.81 Other shoulder lesions, right shoulder; M19.049 Primary osteoarthritis, unspecified hand; M47.27 Other spondylosis with radiculopathy, lumbosacral region; I10 Essential (primary) hypertension; E11.9 Type 2 diabetes mellitus without complications; E78.5 Hyperlipidemia, unspecified
CPT/HCPCS: 82043; 82570; 99212

== ENCOUNTER 2023-02-18 09:00 | Outpatient (AMB) | payer MEDICARE, SELFPAY ==
--- NOTE | 2023-02-18 09:02 | A.OFFVIS_ITS ---
Intake Vital Signs 02/18/23 09:03 Height 5 ft 9 in Weight 187 lb 6.287 oz BMI 27.7 BP 110/62 Blood Pressure Location Lt brachial Position Sitting Pulse 81 Pulse Source Pulse Oximeter Temp 97.2 F Temp Source Skin Pulse Oximetry (%) 97 Oxygen Delivery Method Room Air Intake Visit Reasons: pmr Intake Note: Patient presents today to follow up on PMR. Stopped prednisone 1 mg every other day in September. c/o right hip pain radiating down to leg. X-rays ordered yesterday by PCP. Report is pending. Community Service Representative Required: No Accompanied by: Self / Same As Patient Allergies No Known Allergies Allergy (Verified 02/18/23 09:05) HPI HPI Comments History of Present Illness Details The patient returns today for evaluation of his PMR and osteoarthritis. He had tapered off the prednisone in September. There was no apparent flare of symptoms but in the past month he has been having some right lumbar pain that radiates to the lateral hip and down the lateral thigh. This seems to come on more with walking. But it is also bothersome at night. There was no recent injury. He has shoulder injection earlier this year that helped quite a bit, although there is still some discomfort in the right shoulder. He has no headache or jaw claudication. There has been no episodic visual disturbance. Looking through his record, in 2020 he had a corticosteroid injection in the back by Dr. Bruno that was helpful at relieving similar symptoms. [facility] Medical History Tubular adenoma Polymyalgia rheumatica Osteoarthritis, hand ESR raised Shoulder pain, bilateral Osteoarthritis of lumbosacral spine with radiculopathy Arthralgia Shoulder tendinitis Annual physical exam Elevated PSA Hyperlipidemia Chronic bronchitis H/O mixed hyperlipidemia Insomnia Dupuytren's contracture of both hands Mild persistent asthma Type 2 diabetes mellitus Hypertension Surgical History H/O colonoscopy Family History Father Diabetes mellitus Mother HTN (hypertension) Sister No problems noted. Daughter No problems noted. Social History Housing: House Alcohol intake: never Patient Tobacco Use Status: Former Tobacco user Tobacco use type: Cigarette e-Cigarette/Vaping Use: Never Used Current occupational status: retired Cognitive needs: No Hearing needs: Yes Vision needs: No Review of Systems Const Details: Negative for appetite change, weight change, fever, chills, malaise and fatigue Eyes Details: Negative for vision change, dry eyes,headaches and dizziness Card Details: Negative chest pain, edema and syncope Resp Details: Negative for SOB, cough and wheezing GI Details: Negative indigestion/heartburn, nausea, abdominal pain, bowel changes, diarrhea, constipation and bloody stool. Endo Details: Negative for polyuria and polydypsia Erich/Lymph Details: Negative for excessive bruising or bleeding. Physical Exam Vital Signs: Last Vital Signs Temp 97.2 F 02/18/23 09:03 Pulse 81 02/18/23 09:03 BP 110/62 02/18/23 09:03 Pulse Ox 97 02/18/23 09:03 Oxygen Delivery Method Room Air 02/18/23 09:03 BMI result Body Mass Index 27.7 APPEARANCE: Patient in no acute distress EYES no redness, pupils equal and reactive to light, eyelids normal. No temporal artery tenderness, redness or swelling. JOINT EXAM: Cervical Spine:? Lateral flexion diminished to 10 degrees with no discomfort.? Rotation similarly limited about 45 degrees to either side.? No tenderness. Thoracic Spine:.? No scoliosis.? No tenderness on palpation. Lumbar Spine:.? Alignment normal.? Attempts at hyperextension seem to cause some right lateral hip and thigh pain. AP flexion also causes some lumbar pain. Straight leg raising on the right at 45 degrees causes pain in the buttock, lateral hip and radiates to the thigh. Chest Wall:.? No tenderness, swelling, increased warmth or erythema. Hands:? Right:? There is mild bony enlargement across the thumb IP and PIP joints.? The PIP have no tenderness.? There is also some nontender bony enlargement at the 2nd and 5th DIP joints.? There is evidence of surgery in the palm consistent with a Dupuytren's contracture repair.? There is slight flexion deformities at the PIP but not the MCP joints.? There is no tenderness or swelling in the MCP joints.? Left: mild bony enlargement without tenderness at the thumb IP and the 2nd and 3rd PIP joints.? There is minimal bony enlargement at the 2nd DIP without tenderness.? There is mild flexion deformities at the PIP's but no flexion deformity at the MCP joints.? There is evidence from surgery in the palm consistent with Dupuytren's contracture repair.? There is no tenderness or swelling in the MCP joints.? There is no thenar atrophy or sensory loss. Wrists:.?? Normal pain-free range of motion without tenderness, swelling, increased warmth or erythema. Elbows:? Left: Slight discomfort with extremes of normal flexion or extension.? There is slight tenderness over the joint space without swelling.? No redness or warmth.? Right:? Normal pain-free range of motion without tenderness, swelling, increased warmth or erythema. Shoulders:? Right:? Slight discomfort with extremes of abduction or normal internal or external rotation. There is minimal anterior tenderness but no adenopathy, swelling or abductor weakness.?? Left:? Normal pain-free range of m otion.? No swelling, weakness, or axillary adenopathy. Hips:?? Right: There is some lateral hip and buttock pain with the extremes of internal or external rotation. There is some slight diminishment of internal and external rotation compared to her normal hip. No groin pain with motion. No groin tenderness or mass. Left: Some decrease in the extent of internal or external rotation but without pain. ?Ankles: Normal pain-free range of motion. No swelling or tenderness. ? Results Reviewed Results Reviewed: Laboratory Tests 08/05/22 02/17/23 02/17/23 08:30 08:05 08:05 Hgb ESR 23 H 27 H Creatinine Hemoglobin A1c % C-Reactive Protein 0.26 0.83 H 02/17/23 02/17/23 09:35 09:35 Hgb 12.6 L ESR Creatinine 1.40 Hemoglobin A1c % 6.4 H C-Reactive Protein The reading on the hip x-rays not available yet but the does seem to be some sclerosis and minimal spurring of the acetabular region. The joint space seems preserved and about the same sizes on the left. This looks like some minimal os teoarthritis. Assessment & Plan Assessment & Plan (1) Polymyalgia rheumatica: Comment: onset 04/2021, tapering down prednisone. Off prednisone 09/2022 Code(s): M35.3 - Polymyalgia rheumatica (2) Tendinitis of right rotator cuff: Code(s): M75.81 - Other shoulder lesions, right shoulder (3) Osteoarthritis, hand: Code(s): M19.049 - Primary osteoarthritis, unspecified hand (4) Hip pain, right: Code(s): M25.551 - Pain in right hip (5) Osteoarthritis of lumbosacral spine with radiculopathy: Comment: received SONYA 2020 Code(s): M47.27 - Other spondylosis with radiculopathy, lumbosacral region Plan The patient has no symptoms right now that would suggest recurrence of his PMR. Most of these complaints today seem to be related due to osteoarthritis. The right shoulder has some painful range of motion consistent with rotator cuff tendinitis and/or rotator cuff attrition. The hands have some minimal osteoarthritis. The right hip pain radiating down the leg suggest some radicular symptoms of his lumbar osteoarthritis. There could be some hip pain coming from the right hip OA but the x-rays look relatively mild. I think he should return to physiatry for consideration of another injection. We will refer him but he could also call and make an appointment with Dr. Bruno at [facility] in [place]. A follow-up in about 5 months is recommended although if he has a recurrence of symptoms he could call us sooner. Orders: Orders Erythrocyte Sedimentation Rate 1 Month M35.3 - Polymyalgia rheumatica C Reactive Protein 1 Month M35.3 - Polymyalgia rheumatica Referrals Physiatry Referral M25.551 - Pain in right hip, M47.27 - Other spondylosis with radiculopathy, lumbosacral region Coding Level of Care Code Est Pt Level 3 (96794) Diagnoses Polymyalgia rheumatica M35.3 Tendinitis of right rotator cuff M75.81 Osteoarthritis, hand M19.049 Hip pain, right M25.551 Osteoarthritis of lumbosacral spine with radiculopathy M47.27
[2023-02-18 09:03] VITALS: BP 110/62; PULSE 81; TEMP 36.2; O2SAT 97; BMI 27.7
== END 2023-02-18 09:31 | disposition home or self-care (01) ==
PROVIDERS: PCP Internal Medicine; Visit Provider Internal Medicine Rheumatology
DX: M35.3 Polymyalgia rheumatica (principal); M75.81 Other shoulder lesions, right shoulder; M19.049 Primary osteoarthritis, unspecified hand; M25.551 Pain in right hip; M47.27 Other spondylosis with radiculopathy, lumbosacral region
CPT/HCPCS: 99213

== ENCOUNTER 2023-02-22 10:40 | Outpatient (AMB) | payer MEDICARE, SELFPAY ==
--- NOTE | 2023-02-22 11:02 | MHC.OFFVIS ---
Intake Vital Signs 02/22/23 11:04 Height 5 ft 9 in Weight 186 lb 8.177 oz BMI 27.5 BP 95/49 L Blood Pressure Location Lt brachial Position Sitting Pulse 93 Intake Visit Reasons: S/P Dickey; Dr. Alberts Intake Note: Patient presents to in office visit today in follow up s/p colonoscopy. CC: Patient underwent colonoscopy on 02/04/23. Patient repors doing well and denies having any GI concerns today. Allergies No Known Allergies Allergy (Verified 02/22/23 11:10) HPI S/P Dickey; Dr. Alberts HPI Details LAST VISIT: Tubular adenoma Tubulovillous adenoma of large intestine Screen for colon cancer Constipation Plan As mentioned above in HPI patient had colonoscopy in May that showed tubular adenoma and tubulovillous adenoma without high-grade dysplasia or carcinoma. Will schedule patient today for colonoscopy. Patient denies any ill effects from the prep or anesthesia. Patient reports constipation. Will start him on Dulcolax. Patient was started on Ozempic and reports that his bowels definitely have slowed down. Patient takes Ozempic every Wednesday will try to book his procedure on . Patient denies any cardiac or respiratory symptoms. Denies any history of sleep apnea. Not on any anticoagulation medication. Discussed with patient the importance of good bowel prep and clear liquid diet day before the procedure. What to expect before during and after the procedure discussed with patient. I will see him after the procedure, sooner on as needed basis. Patient is agreeable to plan of care and verbalizes understanding of instructions. He was given the opportunity to ask questions all questions answered ? Thank you for allowing me to participate in his care Medications New bisacodyl (Dulcolax (bisacodyl)) 10 mg (2 x 5 mg) PO BEDTIME 180 tabs 4RF polyethylene glycol 3350 (Miralax) As directed by gastroenterology department at [facility] 238 grams PO ONCE 238 grams 0RF Z12.11 - Encounter for screening for malignant neoplasm of colon COLONOSCOPY: Findings: Terminal Ileum-normal Cecum: several AVM noted Ascending Colon: scattered AVM noted, x2 sessile polyps. one was 3-5 mm removed with cold forceps, and the other wa 8-10 mm removed with cold snare Transverse Colon - one AVM noted. Descending Colon:normal Sigmoid Colon: normal Rectum: Retroflexion with small internal hemorrhoids, grade I Anorectum - normal Colon preparation: [place] Bowel Preparation Scale Right colon; 2 Transverse colon: 3 Left colon; 3 (0 = Unprepared colon segment with mucosa not seen due to solid stool that cannot be cleared. 1 = Portion of mucosa of the colon segment seen, but other areas of the colon segment not well seen due to staining, residual stool and/or opaque liquid. 2 = Minor amount of residual staining, small fragments of stool and/or opaque liquid, but mucosa of colon segment seen well. 3 = Entire mucosa of colon segment seen well with no residual staining, small fragments of stool or opaque liquid) Impression and Post Procedure Diagnosis: polyps internal hemorrhoids AVM Plan: High fiber diet leaflet Avoid straining at stool, epsom salts and sitz bath, anusol supps or cream Repeat Colonoscopy in 3-4 years due to hx of polyps or earlier if clinically indicated PATHOLOGY Diagnosis Colon, ascending, 2 polyps: Tubular adenomas (4 pieces involved); negative for high-grade dysplasia and carcinoma TODAY'S VISIT Patient is here today for follow-up to discuss colonoscopy results. Patient denies any ill effects from the prep, anesthesia or procedure itself with patient reports that he has been doing well. Moving his bowels better. Takes Colace every night and Dulcolax tablets every other day if needed. Patient continues taking Ozempic and reports that his blood sugars got much better. Colonoscopy showed AVM in cecum, ascending colon and transverse colon. Two small tubular adenoma without high-grade dysplasia or carcinoma found in cecum. Colonoscopy will be repeated in 4-5 years. Patient denies any GI concerning symptoms today. Denies any dyspepsia, dysphagia or odynophagia. Denies any melena, hematochezia, unintentional weight loss or ribbon like stools. [facility] Medical History (Reviewed 02/22/23 @ 11:03 by Nina Mendez [facility]US[facility]) Tubular adenoma Polymyalgia rheumatica Osteoarthritis, hand ESR raised Shoulder pain, bilateral Osteoarthritis of lumbosacral spine with radiculopathy Arthralgia Shoulder tendinitis Annual physical exam Elevated PSA Hyperlipidemia Chronic bronchitis H/O mixed hyperlipidemia Insomnia Dupuytren's contracture of both hands Mild persistent asthma Type 2 diabetes mellitus Hypertension Surgical History (Updated 02/22/23 @ 11:04 by MONTSERRAT Govea) H/O colonoscopy Family History Father Diabetes mellitus Mother HTN (hypertension) Sister No problems noted. Daughter No problems noted. Social History Housing: House Alcohol intake: never Patient Tobacco Use Status: Former Tobacco user Tobacco use type: Cigarette e-Cigarette/Vaping Use: Never Used Current occupational status: retired Cognitive needs: No Hearing needs: Yes Vision needs: No Review of Systems Const Denies weight gain and Denies weight loss ENT Reports no additional complaints, Denies dysphagia and Denies odynophagia Card Reports no additional complaints Resp Reports no additional complaints GI Denies abdominal pain, Denies belching, Denies melena, Denies bloating, Denies change in bowel habits, Reports constipation (Occasional), Denies dysphagia, Denies excessive flatus, Denies dyspepsia, Denies heartburn, Denies diarrhea, Denies loose stools, Denies nausea, Denies odynophagia and Denies vomiting Reports no additional complaints Musc Reports no additional complaints Neuro Reports no additional complaints Psych Reports no additional complaints Endo Reports no additional complaints Physical Exam Vital Signs: Last Vital Signs Pulse 93 02/22/23 11:04 BP 95/49 L 02/22/23 11:04 BMI result Body Mass Index 27.5 Const General: healthy appearing, no acute distress and well developed Nutritional Appearance: well nourished Orientation/consciousness: patient oriented x3 HEENT Head: Yes normal to inspection, Yes normocephalic and Yes atraumatic Face and sinus: Yes normal facial exam Mouth: Normal oral and palatal mucosa present Throat: Yes posterior oropharynx normal, Yes tonsils normal and Yes uvula midline Eyes General: appearance normal, both eyes and all related structures Neck Neck: Yes normal visual inspection, Yes full ROM and Yes trachea midline Thyroid: Thyroid normal Resp Effort & Inspection: normal respiratory effort, able to speak in complete sentences, no tracheal deviation and symmetric chest movement Auscultation: clear to auscultation bilaterally Cardio Rate: regular rate Heart sounds: S1 normal heart sound present and S2 normal heart sound present GI Inspection: Yes normal to inspection and No distended Palpation (GI): Soft to palpation, not firm, nontender and No hepatosplenomegaly present Auscultation: normal bowel sounds General: Yes no CVA tenderness Back/Spine/Pelvis Back: no CVA tenderness Skin General skin exam: elasticity normal, turgor normal and dry skin Neuro General: patient oriented x3 Psych Appearance: grossly normal Mental Status: mental status grossly normal Assessment & Plan Assessment & Plan (1) Tubular adenoma: Code(s): D36.9 - Benign neoplasm, unspecified site (2) Constipation: Code(s): K59.00 - Constipation, unspecified Qualifiers: Constipation type: slow transit constipation Qualified Code(s): K59.01 - Slow transit constipation Plan Continue taking Colace daily. May take Dulcolax tablets daily or every other day. He was also encouraged to increase fluid and the tourniquet with to promote better bowel motility. Patient will follow-up in this office on as needed basis. Colonoscopy screening in 4 years, sooner if clinically necessary. Patient is agreeable to this plan and verbalizes understanding of instructions. He was given the opportunity to ask questions and all questions answered. Thank you for allowing me to participate in his care Coding Level of Care Code Est Pt Level 3 (58660) Diagnoses Tubular adenoma D36.9 Slow transit constipation K59.01 Constipation type: slow transit constipation Time Spent (min) 30 Comment 20 minutes spent with patient and additional 10 minutes spent reviewing his records
[2023-02-22 11:04] VITALS: BP 95/49; PULSE 93; BMI 27.5
== END 2023-02-22 12:00 | disposition home or self-care (01) ==
PROVIDERS: PCP Internal Medicine; Visit Provider Nurse Practitioner Family
DX: D36.9 Benign neoplasm, unspecified site (principal); K59.01 Slow transit constipation
CPT/HCPCS: 99213

== ENCOUNTER → 2023-02-22 10:40 | Outpatient (BNVA) | payer MEDICARE, SELFPAY | PROVIDERS: PCP Internal Medicine; Visit Provider Nurse Practitioner Family | DX: K59.01 Slow transit constipation (principal); D36.9 Benign neoplasm, unspecified site | CPT/HCPCS: 99212 ==

== ENCOUNTER 2023-06-14 09:26 | Outpatient (AMB) | payer MEDICARE, SELFPAY ==
[2023-06-14 09:33] VITALS: BP 94/52; PULSE 100; TEMP 36.2; O2SAT 97; BMI 27.8
--- NOTE | 2023-06-14 09:33 | MHC.OFFVIS ---
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 Gross, presents today for follow up and test results. Seen by physiatry. Reports new back pain, difficulty standing up x 5 months Medical Charge Entry Specialist Required: No Accompanied by: Self / Same As Patient Allergies No Known Allergies Allergy (Verified 06/14/23 09:33) HPI HPI Comments History of Present Illness Details Mr. López 73yoM returns for follow-up of his PMR and osteoarthritis. He had tapered off the prednisone in September 2022 and continues to do well without return of symptoms for PMR. He also continues with right lumbar pain that radiates to the lateral hip and down the lateral thigh. This is stronger with walking and also bothersome at night. In 2020 he had a corticosteroid injection in the back by Dr. Bruno that was helpful at relieving similar symptoms. He would like a referral to pain management for corticosteroid injection to his back. February 18, [address] Gross: The patient returns today for evaluation of his PMR and osteoarthritis. He had tapered off the prednisone in September. There was no apparent flare of symptoms but in the past month he has been having some right lumbar pain that radiates to the lateral hip and down the lateral thigh. This seems to come on more with walking. But it is also bothersome at night. There was no recent injury. He has shoulder injection earlier this year that helped quite a bit, although there is still some discomfort in the right shoulder. He has no headache or jaw claudication. There has been no episodic visual disturbance. Looking through his record, in 2020 he had a corticosteroid injection in the back by Dr. Bruno that was helpful at relieving similar symptoms. [facility] Medical History (Updated 06/16/23 @ 17:06 by MJ Solares-) Tubular adenoma Polymyalgia rheumatica Osteoarthritis, hand ESR raised Shoulder pain, bilateral Osteoarthritis of lumbosacral spine with radiculopathy Arthralgia Shoulder tendinitis Annual physical exam Elevated PSA Hyperlipidemia Chronic bronchitis H/O mixed hyperlipidemia Insomnia Dupuytren's contracture of both hands Mild persistent asthma Type 2 diabetes mellitus Hypertension Surgical History (Updated 06/14/23 @ 09:36 by KARLA La) Hx of hand surgery H/O colonoscopy Family History Father Diabetes mellitus Mother HTN (hypertension) Sister No problems noted. Daughter No problems noted. Social History Housing: House Alcohol intake: never Patient Tobacco Use Status: Former Tobacco user Tobacco use type: Cigarette e-Cigarette/Vaping Use: Never Used Current occupational status: retired Cognitive needs: No Hearing needs: Yes Vision needs: No Review of Systems Const All systems reviewed & are unremarkable except as noted in HPI and below Physical Exam Vital Signs: Last Vital Signs Temp 97.2 F 06/14/23 09:33 Pulse 100 06/14/23 09:33 BP 94/52 L 06/14/23 09:33 Pulse Ox 97 06/14/23 09:33 Oxygen Delivery Method Room Air 06/14/23 09:33 BMI result Body Mass Index 27.8 APPEARANCE: Patient in no acute distress groomed, nor is EYES no redness, No temporal artery tenderness, redness or swelling. HEART:? Regular rhythm, S1-S2 heard, no murmurs, rubs or gallops. LUNG:? Clear to percussion and auscultation JOINT EXAM: Cervical Spine:? Lateral flexion diminished to 10 degrees with no discomfort.? Rotation similarly limited about 45 degrees to either side.? No tenderness. Thoracic Spine:.? No scoliosis.? No tenderness on palpation. Lumbar Spine:.? Alignment normal.? Attempts at hyperextension seem to cause some right lateral hip and thigh pain. AP flexion also causes some lumbar pain. Straight leg raising on the right at 45 degrees causes pain in the buttock, lateral hip and radiates to the thigh. Chest Wall:.? No tenderness, swelling, increased warmth or erythema. Hands:? Right:? There is mild bony enlargement across the thumb IP and PIP joints.? The PIP have no tenderness.? There is also some nontender bony enlargement at the 2nd and 5th DIP joints.? There is evidence of surgery in the palm consistent with a Dupuytren's contracture repair.? There is slight flexion deformities at the PIP but not the MCP joints.? There is no tenderness or swelling in the MCP joints.? Left: mild bony enlargement without tenderness at the thumb IP and the 2nd and 3rd PIP joints.? There is minimal bony enlargement at the 2nd DIP without tenderness.? There is mild flexion deformities at the PIP's but no flexion deformity at the MCP joints.? There is evidence from surgery in the palm consistent with Dupuytren's contracture repair.? There is no tenderness or swelling in the MCP joints.? There is no thenar atrophy or sensory loss. Wrists:.?? Normal pain-free range of motion without tenderness, swelling, increased warmth or erythema. Elbows:? Left: Slight discomfort with extremes of normal flexion or extension.? There is slight tenderness over the joint space without swelling.? No redness or warmth.? Right:? Normal pain-free range of motion without tenderness, swelling, increased warmth or erythema. Shoulders:? Right:? Slight discomfort with extremes of abduction or normal internal or external rotation. There is minimal anterior tenderness but no adenopathy, swelling or abductor weakness.?? Left:? Normal pain-free range of motion.? No swelling, weakness, or axillary adenopathy. Hips:?? Right: There is some lateral hip and buttock pain with the extremes of internal or external rotation. There is minimal diminishment of internal and external rotation compared to a normal hip. No groin pain with motion. No groin tenderness or mass. Left: Some decrease in the extent of internal or external rotation but without pain. ?Ankles: Normal pain-free range of motion. No swelling or tenderness. ? Results Reviewed Results Reviewed: Laboratory Tests 02/17/23 02/17/23 02/17/23 08:05 09:35 09:35 WBC 10.5 RBC 4.47 L Hgb 12.6 L Hct 39.8 L ESR 27 H AST 18 ALT 16 C-Reactive Protein 0.83 H [facility] [address] [place] [address] XRay Report Signed Patient: Vern López MR#: [id number] OB: 1950 Acct:[id number] Age/Sex: 72 / M ADM Date: 02/17/23 Loc: HO.[facility]GCX tending Dr: Hiral Avery MD Ordering Physician: Hiral Avery MD Date of Service: 02/17/23 Procedure(s): XR hip RT w PEL1V Accession Number(s): [id number] cc: Hiral Avery MD~ EXAMINATION: XR HIP, RIGHT CLINICAL INFORMATION: Pain in right hip. COMPARISON: X-ray lumbar spine 11/29/2020. TECHNIQUE: Two views of the right hip and AP view of the pelvis. FINDINGS: Degenerative changes on very limited images of the lower lumbar spine. The bones are diffusely demineralized. Moderate degenerative changes in the right hip with joint space narrowing and hypertrophic change. Small soft tissue calcifications adjacent to the right hip and inferior pubic ramus. Moderate degenerative changes on single AP view of the left hip. Sclerotic focus overlying the left intertrochanteric region, possibly representing a bone island. XR/XR hip RT w PEL1V IMPRESSION: 1. Degenerative changes on very limited images of the lower lumbar spine. The bones are diffusely demineralized. 2. Moderate degenerative changes left hip. 3. The bones are diffusely demineralized. MRI should be considered for further evaluation if there is concern for fracture or other underlying pathology. [facility] [address] [place] [address] [place] [address] XRay Report Signed Patient: Vern López MR#: [id number] : 1950 Acct:[id number] Age/Sex: 71 / M ADM Date: 12/02/21 Loc: HO.HMGCX Attending Dr: Patel Gross MD Ordering Physician: Patel Gross MD Date of Service: 12/02/21 Procedure(s): XR shoulder RT min 2V Accession Number(s): [id number] cc: Patel Gross MD~ EXAMINATION: XR SHOULDER, RIGHT CLINICAL INFORMATION: Polymyalgia rheumatica COMPARISON: None TECHNIQUE: Four views of the right shoulder. FINDINGS: No fracture or dislocation. The glenohumeral joint is aligned well. Small osteophytes. Mild degenerative change of the acromioclavicular joint. The visualized lung is clear. The visualized ribs are intact. XR/XR shoulder RT min 2V IMPRESSION: Mild degenerative changes. Assessment & Plan Assessment & Plan (1) Polymyalgia rheumatica: Comment: onset 04/2021, tapering down prednisone. Off prednisone 09/2022 Code(s): M35.3 - Polymyalgia rheumatica (2) Tendinitis of right rotator cuff: Code(s): M75.81 - Other shoulder lesions, right shoulder (3) Osteoarthritis, hand: Code(s): M19.049 - Primary osteoarthritis, unspecified hand Qualifiers: Laterality: bilateral Osteoarthritis type: primary Qualified Code(s): M19.041 - Primary osteoarthritis, right hand; M19.042 - Primary osteoarthritis, left hand (4) Hip pain, right: Code(s): M25.551 - Pain in right hip (5) Osteoarthritis of lumbosacral spine with radiculopathy: Comment: received SONYA 2020 Code(s): M47.27 - Other spondylosis with radiculopathy, lumbosacral region Plan #PMR: The patient continues without symptoms that would suggest recurrence of PMR. #Most of these complaints today seem to be related to osteoarthritis. The right shoulder has some painful range of motion consistent with rotator cuff tendinitis and/or rotator cuff attrition. The hands have some minimal osteoarthritis. The right hip pain radiating down the leg suggest some radicular symptoms of his lumbar osteoarthritis. There could be some hip pain coming from the right hip OA but the x-rays look relatively mild. I will give him a referral to pain management for consideration of another injection. Per patient he called Dr. Bruno at [facility] in [place] but was not successful in securing an appointment. Follow-up in 6 months, patient knows call us sooner if needed. I spent 30 minutes reviewing history, evaluating patient, and documenting. Orders: Orders HLA B27 06/15/23 M19.049 - Primary osteoarthritis, unspecified hand, M25.551 - Pain in right hip, M35.3 - Polymyalgia rheumatica, M75.81 - Other shoulder lesions, right shoulder Cyclic Citrullinated Peptide 06/15/23 M19.049 - Primary osteoarthritis, unspecified hand, M25.551 - Pain in right hip, M35.3 - Polymyalgia rheumatica, M75.81 - Other shoulder lesions, right shoulder Erythrocyte Sedimentation Rate 06/15/23 M19.049 - Primary osteoarthritis, unspecified hand, M25.551 - Pain in right hip, M35.3 - Polymyalgia rheumatica, M75.81 - Other shoulder lesions, right shoulder Uric Acid 06/15/23 M19.049 - Primary osteoarthritis, unspecified hand, M25.551 - Pain in right hip, M35.3 - Polymyalgia rheumatica, M75.81 - Other shoulder lesions, right shoulder Rheumatoid Factor 06/15/23 M19.049 - Primary osteoarthritis, unspecified hand, M25.551 - Pain in right hip, M35.3 - Polymyalgia rheumatica, M75.81 - Other shoulder lesions, right shoulder C Reactive Protein 06/15/23 M19.049 - Primary osteoarthritis, unspecified hand, M25.551 - Pain in right hip, M35.3 - Polymyalgia rheumatica, M75.81 - Other shoulder lesions, right shoulder Referrals Pain Management Referral M47.27 - Other spondylosis with radiculopathy, lumbosacral region Coding Level of Care Code Est Pt Level 3 (20235) Diagnoses Polymyalgia rheumatica M35.3 Tendinitis of right rotator cuff M75.81 Primary osteoarthritis of both hands M19.041; M19.042 Laterality: bilateral Osteoarthritis type: primary Hip pain, right M25.551 Osteoarthritis of lumbosacral spine with radiculopathy M47.27
== END 2023-06-14 10:03 | disposition home or self-care (01) ==
PROVIDERS: PCP Internal Medicine; Visit Provider Nurse Practitioner Family
DX: M35.3 Polymyalgia rheumatica (principal); M75.81 Other shoulder lesions, right shoulder; M19.041 Primary osteoarthritis, right hand; M19.042 Primary osteoarthritis, left hand; M25.551 Pain in right hip; M47.27 Other spondylosis with radiculopathy, lumbosacral region
CPT/HCPCS: 99213

== ENCOUNTER → 2023-06-14 09:26 | Outpatient (BNVA) | payer MEDICARE, SELFPAY | PROVIDERS: PCP Internal Medicine; Visit Provider Nurse Practitioner Family | DX: M35.3 Polymyalgia rheumatica (principal); M75.81 Other shoulder lesions, right shoulder; M19.041 Primary osteoarthritis, right hand; M19.042 Primary osteoarthritis, left hand; M25.551 Pain in right hip; M47.27 Other spondylosis with radiculopathy, lumbosacral region | CPT/HCPCS: 99212 ==

== ENCOUNTER 2023-06-15 08:12 | Outpatient (REF) | payer MEDICARE, SELFPAY ==
[2023-06-15 11:40] LABS: MANUAL DIFF FLAG NO
[2023-06-15 11:53] LABS: Basophils Absolute Auto 0.1 X10*3/uL (0.0-0.2); Basophils Percent Auto 0.6 % (0-2); Eosinophils Absolute Auto 0.5 X10*3/uL (0.0-0.4); Eosinophils Percent Auto 5.2 % (0-4); Hemoglobin 12.8 g/dl (14.0-18.0); Imm Gran Abs Auto 0.02 X10*3/uL (0.00-0.03); Imm Gran Pct Auto 0.2 % (0.0-0.4); Lymphocytes Absolute Auto 2.8 X10*3/uL (1.2-4.9); Lymphocytes Percent Auto 28.2 % (20-40); Mean Corpuscular HGB Conc 32.8 g/dl (31.0-36.0); Mean Corpuscular Hemoglobin 29.3 pg (27.0-33.0); Mean Corpuscular Volume 89.2 fL (80.0-98.0); Mean Platelet Volume 10.2 fL (9.4-12.4); Monocytes Absolute Auto 0.9 X10*3/uL (0.1-1.2); Monocytes Percent Auto 8.7 % (2-11); Neutrophils Absolute Auto 5.8 x10*3/uL (2.0-8.3); Neutrophils Percent Auto 57.1 % (45-73); Platelet Count 243 X10*3/uL (160-400); Red Blood Count 4.37 X10*6/uL (4.60-5.80); White Blood Count 10.1 X10*3/uL (4.8-10.8)
[2023-06-15 11:55] LABS: Rheumatoid Factor < 13.0 IU/mL (<15.0)
[2023-06-15 11:59] LABS: Uric Acid 8.7 mg/dL (3.4-7.0)
[2023-06-15 12:02] LABS: Alanine Aminotransferase 14 U/L (0-40); Albumin Level 4.1 g/dL (3.5-5.0); Alkaline Phosphatase 70 U/L (39-117); Anion Gap 11 (12-20); Aspartate Amino Transferase 17 U/L (5-37); Bilirubin Total 0.7 mg/dL (0.0-1.0); Blood Urea Nitrogen 27 mg/dL (9-16); C Reactive Protein 0.13 mg/dL (< or = 0.50); Calcium 9.7 mg/dL (8.4-10.2); Carbon Dioxide 27 mmol/L (22-29); Chloride 105 mmol/L (96-108); Cholesterol 145 mg/dL (<200); Estimated Glomerular Filt Rate > 60; Glucose Fasting 129 mg/dL (60-99); HDL Cholesterol 36 mg/dL (>40); LDL Cholesterol Calculated 85 mg/dL (<100); Potassium 4.5 mmol/L (3.3-5.1); Sodium 138 mmol/L (135-145); Total Protein 7.5 g/dL (6.5-8.0); Triglycerides 120 mg/dL (<150)
[2023-06-15 12:03] LABS: Estimated Average Glucose 134 mg/dL; Hemoglobin A1c % 6.3 % (<6.0)
[2023-06-15 12:30] LABS: Erythrocyte Sedimentation Rate 23 MM/HR (0-15)
[2023-06-15 12:48] LABS: Creatinine Urine 73.62 mg/dL; Microalbumin Urine < 5.0 mg/L
[2023-06-17 13:34] LABS: Cyclic Citrullinated Peptide <16 UNITS
[2023-06-19 11:49] LABS: HLA B27 Negative (Negative)
== END 2023-06-15 08:13 | disposition home or self-care (01) ==
LOC: HO.HMGCLDS 08:12
PROVIDERS: PCP Internal Medicine; Visit Provider Nurse Practitioner Family
DX: I10 Essential (primary) hypertension (principal); E11.9 Type 2 diabetes mellitus without complications; E78.5 Hyperlipidemia, unspecified; M35.3 Polymyalgia rheumatica; M75.81 Other shoulder lesions, right shoulder; M25.551 Pain in right hip; M19.049 Primary osteoarthritis, unspecified hand
CPT/HCPCS: 36415; 80053; 80061; 82043; 82570; 83036; 84550; 85025; 85652; 86140; 86200; 86431; 86812

== ENCOUNTER 2023-06-22 10:40 | Outpatient (AMB) | payer MEDICARE, SELFPAY ==
--- NOTE | 2023-06-22 11:07 | A.OFFPC_ITS ---
Vital Signs 06/22/23 11:08 Height 5 ft 9 in Weight 185 lb BMI 27.3 BP 120/66 Blood Pressure Location Lt brachial Position Sitting Pulse 83 Pulse Source Pulse Oximeter Pulse Oximetry (%) 97 Oxygen Delivery Method Room Air Intake Visit Reasons: 4 month fu Intake Note: Pt is hetre today for 4 months follow up on labs. Allergies No Known Allergies Allergy (Verified 06/22/23 11:13) Medication List - Last Reconciled 06/22/23 by Hiral Avery MD acetaminophen ER (Tylenol 8 Hour) 650 mg PO Q12H bisacodyl 10 mg PO BEDTIME blood sugar diagnostic One touch Verio test strips QD docusate sodium 100 mg PO BEDTIME finasteride 5 mg PO DAILY 90 days glipizide 5 mg (1/2 x 10 mg) PO BID hydrochlorothiazide 25 mg PO DAILY lancets check glucose once a day lisinopril 30 mg PO DAILY metformin 1,000 mg PO DAILY pravastatin 80 mg PO DAILY Tobacco use date assessed: 06/22/23 Fall risk assessment: No Falls in past year Last assessed Fall Risk: 06/22/23 Dental Screening Dental Screen Date: 06/22/23 Did you have a dental visit in the last 12 months?: Yes Did you have a dental problem in the last 6 months where you did not have access to dental care?: No Was dental information given to patient?: Patient has dentist HPI 4 month fu HPI Details Pt presents for f/u DM 2, HTN, hyperlipid, stable on meds. Patient can not afford Ozempic. He complains of chronic lower back pain follows up with rheumatology and is waiting for an appointment for cortisone injection with pain management. Patient denies lower extremity weakness or change in bladder or bowel function. [facility] Medical History Tubular adenoma Polymyalgia rheumatica Osteoarthritis, hand ESR raised Shoulder pain, bilateral Osteoarthritis of lumbosacral spine with radiculopathy Arthralgia Shoulder tendinitis Annual physical exam Elevated PSA Hyperlipidemia Chronic bronchitis H/O mixed hyperlipidemia Insomnia Dupuytren's contracture of both hands Mild persistent asthma Type 2 diabetes mellitus Hypertension Surgical History Hx of hand surgery H/O colonoscopy Family History Father Diabetes mellitus Mother HTN (hypertension) Sister No problems noted. Daughter No problems noted. Social History Housing: House Alcohol intake: never Patient Tobacco Use Status: Former Tobacco user Tobacco use type: Cigarette e-Cigarette/Vaping Use: Never Used Current occupational status: retired Cognitive needs: No Hearing needs: Yes Vision needs: No Questionnaire PHQ-9 Over the last 2 weeks, how often have you been bothered by any of the following problems? 1. Little interest or pleasure in doing things: not at all 2. Feeling down, depressed, or hopeless: not at all 3. Trouble falling or staying asleep, or sleeping too much: not at all 4. Feeling tired or having little energy: several days 5. Poor appetite or overeating: several days 6. Feeling bad about yourself - or that you are a failure or have let yourself or your family down: not at all 7. Trouble concentrating on things, such as reading the newspaper or watching television: not at all 8. Moving or speaking so slowly that other people could have noticed. Or the opposite - being so fidgety or restless that you have been moving around a lot more than usual: not at all 9. Thoughts that you would be better off or of hurting yourself in some way: not at all Total score: 2 Depression Screening Interpretation: Negative Depression Screening Done: Yes Source: Developed by Drs. Sebastien Paz, Natalia Brown, Bharath Lubin and colleagues, with an educational rachele from [employer] Thrive Questionnaire Date Thrive assessed: 06/22/23 I am a: Patient What is your living situation today?: I have a steady place to live Within the past 12 months, did the food you bought not last and you didn't have the money to get more?: Never true Within the past 12 months, did you worry whether your food would run out before you got money to buy more?: Never true Do you have trouble paying for medicines?: No Do you have trouble getting transportation to medical appointments?: No Do you have trouble paying your heating and electricity bill?: No Do you have trouble taking care of your child, family member or friend?: No Do you have trouble with day-to-day activities such as bathing, preparing meals, shopping, managing finances, etc.?: No Are you currently unemployed and looking for a job?: No Are you interested in more education?: No Please select the resources that you would like help with: None Currently or been in a relationship where the following occur: no concerns re ported THRIVE Score: 0 AUDIT C Alcohol Use Questionnaire (AUDIT-C) 1. How often do you have a drink containing alcohol?: Monthly or less 2. How many drinks containing alcohol do you have on a typical day when you are drinking?: 1 or 2 3. How often do you have six or more drinks on one occasion?: Less than monthly Total Score: 2 NASIM-7 AMB Questionnaire NASIM-7 Date NASIM - 7 assessed: 06/22/23 Feeling nervous, anxious, or on edge: 0 = Not at all Not being able to stop or control worryin = Not at all Worrying too much about different things: 0 = Not at all Trouble relaxin = Not at all Being so restless that it is hard to sit still: 0 = Not at all Becoming easily annoyed or irritable: 0 = Not at all Feeling afraid as if something awful might happen: 0 = Not at all Total NASIM-7 score (0-4 normal; 5-9 mild; 10-14 moderate; 15-21 severe): 0 Source: Developed by Drs. Sebastien Paz, Natalia Brown, Bharath Lubin and colleagues, with an educational rachele from [employer] Review of Systems Const All systems reviewed & are unremarkable except as noted in HPI and below Reports no additional complaints Eyes Reports no additional complaints ENT Reports no additional complaints Card Reports no additional complaints Resp Reports no additional complaints GI Reports no additional complaints Reports no additional complaints Physical exam (Primary Care) Vital Signs: Last Vital Signs Pulse 83 06/22/23 11:08 BP 120/66 06/22/23 11:08 Pulse Ox 97 06/22/23 11:08 Oxygen Delivery Method Room Air 06/22/23 11:08 BMI result Body Mass Index 27.3 Tobacco/Smoking Status: Tobacco use Status Tobacco use date assessed 06/22/23 06/22/23 11:16 Patient Tobacco Use Status Former Tobacco user 06/22/23 11:08 Tobacco use type Cigarette 06/22/23 11:08 e-Cigarette/Vaping Use Never Used 06/22/23 11:08 PHQ-9: PHQ-9 Score PHQ-9: Total score 2 06/22/23 11:16 Depression Screening Interpretation: Negative Thrive Assessment: Date of Thrive Assessment Date Thrive assessed 06/22/23 06/22/23 11:16 Currently or been in a relationship where the following occur: no concerns reported Const General: no acute distress HENMT Head: Yes normal to inspection Ears: hearing grossly normal bilaterally Mouth: Normal oral and palatal mucosa present Throat: Yes posterior oropharynx normal Eyes General: appearance normal, both eyes and all related structures Neck Neck: Yes no lymphadenopathy and Yes supple Resp Effort & Inspection: normal respiratory effort Auscultation: clear to auscultation bilaterally Cardio Rhythm: regular rhythm Heart sounds: S1 normal heart sound present and S2 normal heart sound present GI Inspection: Yes normal to inspection Palpation (GI): Soft to palpation Percussion: Yes normal to percussion Auscultation: normal bowel sounds Back/Spine/Pelvis Other: Decreased range of motion lumbar spine paraspinal tenderness in lower lumbar region, straight leg rising 90 degrees bilaterally Assessment and Plan Assessment & Plan (1) Type 2 diabetes mellitus: Comment: Could not tolerate 2000 mg of metformin because of diarrhea, cannot afford Farxiga or Ozempic Code(s): E11.9 - Type 2 diabetes mellitus without complications Plan: A1c is 6.3, ADA diet increase physical activity weight loss discussed with the patient follow-up in 4 months with a fasting labs before (2) Hypertension: Code(s): I10 - Essential (primary) hypertension Plan: Continue current medications (3) Hyperlipidemia: Code(s): E78.5 - Hyperlipidemia, unspecified Plan: Continue statin (4) Osteoarthritis of lumbosacral spine with radiculopathy: Comment: received SONYA 2020 Code(s): M47.27 - Other spondylosis with radiculopathy, lumbosacral region Plan: Refer for physical therapy (5) Polymyalgia rheumatica: Comment: onset 04/2021, tapering down prednisone. Off prednisone 09/2022 Code(s): M35.3 - Polymyalgia rheumatica Plan: Monitor sed rate Orders: Orders PT Evaluation and Treatment Today M47.27 - Other spondylosis with radiculopathy, lumbosacral region Hemoglobin A1c 4 Months E11.9 - Type 2 diabetes mellitus without complications, E78.5 - Hyperlipidemia, unspecified, I10 - Essential (primary) hypertension, M35.3 - Polymyalgia rheumatica Lipid Panel 4 Months E11.9 - Type 2 diabetes mellitus without complications, E78.5 - Hyperlipidemia, unspecified, I10 - Essential (primary) hypertension, M35.3 - Polymyalgia rheumatica Complete Blood Count Auto Diff 4 Months E11.9 - Type 2 diabetes mellitus without complications, E78.5 - Hyperlipidemia, unspecified, I10 - Essential (primary) hypertension, M35.3 - Polymyalgia rheumatica Comprehensive [place]. Panel Fast 4 Months E11.9 - Type 2 diabetes mellitus without complications, E78.5 - Hyperlipidemia, unspecified, I10 - Essential (primary) hypertension, M35.3 - Polymyalgia rheumatica Erythrocyte Sedimentation Rate 4 Months E11.9 - Type 2 diabetes mellitus without complications, E78.5 - Hyperlipidemia, unspecified, I10 - Essential (primary) hypertension, M35.3 - Polymyalgia rheumatica Medications: New acetaminophen ER (Tylenol 8 Hour) 650 mg PO Q12H 60 tabs 2RF Refilled hydrochlorothiazide 25 mg PO DAILY 90 tabs 3RF metformin 1,000 mg PO DAILY 90 tabs 3RF Coding Level of Care Code Est Pt Level 4 (88723) Diagnoses Type 2 diabetes mellitus E11.9 Hypertension I10 Hyperlipidemia E78.5 Osteoarthritis of lumbosacral spine with radiculopathy M47.27 Polymyalgia rheumatica M35.3
[2023-06-22 11:08] VITALS: BP 120/66; PULSE 83; O2SAT 97; BMI 27.3
== END 2023-06-22 11:47 | disposition home or self-care (01) ==
PROVIDERS: PCP Internal Medicine; Visit Provider Internal Medicine
DX: E11.69 Type 2 diabetes mellitus with other specified complication (principal); M35.3 Polymyalgia rheumatica; I10 Essential (primary) hypertension; E78.5 Hyperlipidemia, unspecified; M47.27 Other spondylosis with radiculopathy, lumbosacral region
CPT/HCPCS: 99214

== ENCOUNTER 2023-07-07 08:36 | Outpatient (AMB) | payer MEDICARE, SELFPAY ==
[2023-07-07 09:03] VITALS: BP 130/66; PULSE 74; O2SAT 98; BMI 27.3
--- NOTE | 2023-07-07 09:03 | A.OFFVIS_ITS ---
Intake Vital Signs 07/07/23 09:03 Height 5 ft 9 in Weight 185 lb BMI 27.3 BP 130/66 Blood Pressure Location Lt brachial Position Sitting Pulse 74 Pulse Oximetry (%) 98 Oxygen Delivery Method Room Air Intake Visit Reasons: Spondylosis with radiculopathy Allergies No Known Allergies Allergy (Verified 07/07/23 09:05) Medication List - Last Reconciled 07/07/23 by Isi Flores, INTELLIGENCE MANAGER acetaminophen ER (Tylenol 8 Hour) 650 mg PO Q12H bisacodyl 10 mg PO BEDTIME blood sugar diagnostic One touch Verio test strips QD docusate sodium 100 mg PO BEDTIME finasteride 5 mg PO DAILY 90 days glipizide 5 mg (1/2 x 10 mg) PO BID hydrochlorothiazide 25 mg PO DAILY lancets check glucose once a day lisinopril 30 mg PO DAILY metformin 1,000 mg PO DAILY pravastatin 80 mg PO DAILY HPI Spondylosis with radiculopathy HPI Details 73-year-old male who presents today to t office for evaluation of spondylolysis with radiculopathy Patient presenting with a history of low back pain for many years that has been relatively uncontrolled over the past one year. Pain is described in the axial lower back on the right side with some radiation into the right leg. Pain described as 8 out of 10 in his lower back and 6 out of 10. He is unable to sleep normally or doing his daily activities. He is unable to function normally. He is retired from work. His mornings are slightly better when the pain is about 7 out of 10 and afternoons tend to be worse as the day progresses. The movements make the pain worse. He has previously tried several cortisone injections with Dr. Bruno. Prior history is notable for polymyalgia rheumatica, he is followed by rheumatology. He previously had prednisone therapy as of September 2022. He admits to having hard time to even get up from a sitting position. Also it gets worse with walking, states the right leg is worse. He did 2 weeks of physical therapy in the past. [facility] Medical History Tubular adenoma Polymyalgia rheumatica Osteoarthritis, hand ESR raised Shoulder pain, bilateral Osteoarthritis of lumbosacral spine with radiculopathy Arthralgia Shoulder tendinitis Annual physical exam Elevated PSA Hyperlipidemia Chronic bronchitis H/O mixed hyperlipidemia Insomnia Dupuytren's contracture of both hands Mild persistent asthma Type 2 diabetes mellitus Hypertension Surgical History Hx of hand surgery H/O colonoscopy Family History Father Diabetes mellitus Mother HTN (hypertension) Sister No problems noted. Daughter No problems noted. Social History Housing: House Alcohol intake: never Patient Tobacco Use Status: Former Tobacco user Tobacco use type: Cigarette e-Cigarette/Vaping Use: Never Used Current occupational status: retired Cognitive needs: No Hearing needs: Yes Vision needs: No Review of Systems Const All systems reviewed & are unremarkable except as noted in HPI and below Physical Exam Vital Signs: Last Vital Signs Pulse 74 07/07/23 09:03 BP 130/66 07/07/23 09:03 Pulse Ox 98 07/07/23 09:03 Oxygen Delivery Method Room Air 07/07/23 09:03 BMI result Body Mass Index 27.3 General: Appears afebrile. Alert and oriented. Mood and affect appropriate. Follows and participates in conversation appropriately. Respiratory effort is unlabored. Able to transition from sit to stand unassisted. Straight leg raise positive on the right Results Reviewed Results Reviewed: EXAMINATION: MR LUMBAR SPINE WITHOUT CONTRAST Dec 2020 CLINICAL INFORMATION: Lumbar radiculitis. COMPARISON: Lumbar spine radiographs from 11/29/2020. TECHNIQUE: MRI of the lumbar spine was obtained using routine sequences without contrast. FINDINGS: Straightening of the normal lumbar lordosis. Otherwise, normal anatomic alignment. EXAMINATION: MR LUMBAR SPINE WITHOUT CONTRAST CLINICAL INFORMATION: Lumbar radiculitis. COMPARISON: Lumbar spine radiographs from 11/29/2020. TECHNIQUE: MRI of the lumbar spine was obtained using routine sequences without contrast. FINDINGS: Straightening of the normal lumbar lordosis. Otherwise, normal anatomic alignment. Moderate degenerative disc disease at T11-T12 and L5-S1. Associated mixed Modic type discogenic endplate changes including minimal Modic type I discogenic edema at L5-S1. No additional suspicious marrow edema. Small Schmorl's node in the inferior endplate of L5. Otherwise, the vertebral body heights are well-maintained. The conus medullaris terminates at the level of L2. The distal spinal cord is normal in appearance. No significant abnormalities of the paraspinal musculature. Limited evaluation of the intra-abdominal structures without significant abnormalities. The abdominal aorta is of normal contour and caliber. AXIAL SPINAL LEVELS: L1-L2: Shallow diffuse disc bulge. There is mild bilateral facet joint arthropathy. There is no neural foraminal stenosis. There is no spinal canal stenosis. L2-L3: Shallow diffuse disc bulge with superimposed left foraminal disc protrusion. There is no facet joint arthropathy. There is mild left and no right neural foraminal stenosis. There is no spinal canal stenosis. L3-L4: Shallow diffuse disc bulge with superimposed left foraminal disc protrusion. There is mild bilateral facet joint arthropathy. There is mild left and no right neural foraminal stenosis. There is no spinal canal stenosis. L4-L5: Mild diffuse disc bulge. There is moderate bilateral facet joint arthropathy with ligamentum flavum hypertrophy. There is mild to moderate bilateral neural foraminal stenosis. There is narrowing of the subarticular zones with no overt spinal canal stenosis centrally. L5-S1: Moderate diffuse disc bulge with posterior osseous ridging. There is moderate bilateral facet joint arthropathy. There is moderate to severe right and moderate left neural foraminal stenosis. There is stenosis of the left and mild narrowing of the right subarticular zones with no overt spinal canal stenosis centrally. IMPRESSION: Mild to moderate multilevel degenerative spondyloarthropathy of the lumbar spine as described in detail above. Most notably, there is stenosis of the left subarticular zone at L5-S1 with mass effect on the traversing left-sided S1 nerve roots. Moderate to severe neural foraminal stenoses at L5-S1. No overt spinal canal stenosis centrally. Electronically reviewed and signed by: Ryan Finnegan Electronically Signed: Dec 19, 2020 06:34 Assessment & Plan Assessment & Plan (1) History of corticosteroid therapy: Code(s): Z92.241 - Personal history of systemic steroid therapy (2) Osteoarthritis of lumbosacral spine with radiculopathy: Comment: received SONYA Dr. Bruno 2020 Code(s): M47.27 - Other spondylosis with radiculopathy, lumbosacral region Plan Given his history of corticosteroid use and demineralization of bone on plain films, I ordered DEXA scan to check for osteoporosis. For his lumbar radicular pain secondary to nerve root compression, we can plan a Right L5-TFESI under fluoroscopy. In the future for his endplate degeneration of L5-S1 level, we will consider BVN ablation at those levels. We also discussed disc replacement/cage at L5-S1, but at this time, we will continue with non- surgical management in combination with treatment for any osteopenia or osteoporosis. Justification for interventional therapy: * Patient with average pain > 6/10 * Patient has exhausted conservative therapy including physical therapy and oral medications. * Previous injection provided greater than 50% relief. * Patient has a good understanding of his condition as well as adequate social and mental support Scribed for Dr. Silva by Carlos Haskins, medical office rep, on 07/07/2023. I, Dr. Silva, have personally reviewed and agree with the information entered by the scribe. Orders: Orders XR DEXA axial skeleton 07/07/23 M47.27 - Other spondylosis with radiculopathy, lumbosacral region, Z92.241 - Personal history of systemic steroid therapy Coding Level of Care Code New Pt Level 4 (32073) Diagnoses History of corticosteroid therapy Z92.241 Osteoarthritis of lumbosacral spine with radiculopathy M47.27
== END 2023-07-07 09:37 | disposition home or self-care (01) ==
LOC: HO.PMC 08:36
PROVIDERS: PCP Internal Medicine; Visit Provider Internal Medicine
DX: Z92.241 Personal history of systemic steroid therapy (principal); M47.27 Other spondylosis with radiculopathy, lumbosacral region
CPT/HCPCS: 99204

== ENCOUNTER → 2023-07-07 08:36 | Outpatient (BNVA) | payer MEDICARE, SELFPAY | PROVIDERS: PCP Internal Medicine; Visit Provider Internal Medicine | DX: M47.27 Other spondylosis with radiculopathy, lumbosacral region (principal); M35.3 Polymyalgia rheumatica; Z92.241 Personal history of systemic steroid therapy | CPT/HCPCS: 99202 ==

== ENCOUNTER 2023-08-05 06:08 | Outpatient (REF) | payer MEDICARE, SELFPAY ==
--- NOTE | ~2023-08-05 | FL_ITS ---
EXAMINATION: XR FLUOROSCOPY WITH IMAGES CLINICAL INFORMATION: Spondylosis with radiculopathy lumbosacral region. COMPARISON: None available. TECHNIQUE: Fluoroscopy Supervised By: Dr. Silva. Fluoroscopy Time: 0.3 min. Cumulative Dose: 4.56 mGy. DAP: 0.0367 Gy-cm2. Images: 2. FINDINGS: Fluoroscopic imaging provided for procedure supervised by 2 views demonstrate a wire projecting over the posterior aspect of the lumbar spine. Please refer to operative report for more detailed evaluation. FL/FL guidance in treatment room IMPRESSION: Fluoroscopic imaging provided for procedure. Please refer to operative report for more detailed evaluation.
== END 2023-08-05 06:09 | disposition home or self-care (01) ==
LOC: CF 06:08
PROVIDERS: Visit Provider Internal Medicine
DX: M47.27 Other spondylosis with radiculopathy, lumbosacral region (principal)
CPT/HCPCS: 64483; J1100; Q9967

== ENCOUNTER 2023-08-05 07:51 | Outpatient (AMB) | payer MEDICARE, SELFPAY ==
--- NOTE | 2023-08-05 07:51 | A.OFFVIS_ITS ---
Vital Signs 08/05/23 07:52 08/05/23 08:48 Height 5 ft 9 in 5 ft 9 in Weight 188 lb 188 lb BMI 27.8 27.8 BP 122/68 118/70 Blood Pressure Location Lt brachial Lt brachial Position Sitting Sitting Respiration 14 14 Pulse 74 87 Pulse Source Pulse Oximeter Pulse Oximeter Pulse Oximetry (%) 96 98 Oxygen Delivery Method Room Air Room Air Comment Pre-Op post-op Intake Visit Reasons: Right L5 TFESI Regional Engagement Consultant Required: No Accompanied by: Self / Same As Patient Allergies No Known Allergies Allergy (Verified 08/05/23 07:53) HPI HPI Right L5 TFESI: Details: Patient presents for scheduled procedure. Denies any recent cough, cold, infection, fever or other significant changes in medical history since last office visit. [facility] Medical History Tubular adenoma Polymyalgia rheumatica Osteoarthritis, hand ESR raised Shoulder pain, bilateral Osteoarthritis of lumbosacral spine with radiculopathy Arthralgia Shoulder tendinitis Annual physical exam Elevated PSA Hyperlipidemia Chronic bronchitis H/O mixed hyperlipidemia Insomnia Dupuytren's contracture of both hands Mild persistent asthma Type 2 diabetes mellitus Hypertension Surgical History Hx of hand surgery H/O colonoscopy Family History Father Diabetes mellitus Mother HTN (hypertension) Sister No problems noted. Daughter No problems noted. Social History Housing: House Alcohol intake: never Patient Tobacco Use Status: Former Tobacco user Tobacco use type: Cigarette e-Cigarette/Vaping Use: Never Used Current occupational status: retired Cognitive needs: No Hearing needs: Yes Vision needs: No Physical Exam Vital Signs: Last Vital Signs Pulse 74 08/05/23 07:52 Resp 14 08/05/23 07:52 BP 122/68 08/05/23 07:52 Pulse Ox 96 08/05/23 07:52 Oxygen Delivery Method Room Air 08/05/23 07:52 BMI result Body Mass Index 27.8 Office Procedures Details: Transforaminal epidural steroid injection, Right L5 After obtaining written consent, pre-procedure blood pressure and heart rate were stable and recorded in the nursing record. The patient was placed in the prone position on the fluoroscopy table. The lumbosacral area was prepped with chloraprep, allowed to dry and draped in sterile fashion. Using fluoroscopy, the skin overlying our target was anestheti zed with 0.5% lidocaine. A 22 gauge 3.5 inch spinal needle was advanced to the safe triangle in the upper pole of the right L5 foramen. No paresthesias were elicited with needle placement and aspiration was negative for blood and CSF. Correct needle position was confirmed with approximately 1 ml contrast dye (Omnipaque 180 mg/ml) injected under real-time fluoroscopy. No evidence of vascular or intrathecal uptake was seen and there was both epidural and peripheral spread of the contrast agent. 10 mg dexamethasone plus 1.5 ml containing 0.5% lidocaine was slowly injected. The needle was flushed and removed. the same procedure was repeated for the remaining levels. The skin was cleansed and a sterile bandages were applied. The patient tolerated the procedure well and no complications were encountered. Following the procedure the patient's vital signs were stable. The patient was discharged home in good condition with post-procedural instructions. Time Out: Immediately prior to the procedure, the following was verbally confirmed that there is a signed consent form and that the correct patient, planned procedure, site and side are consistent with documentation and that necessary equipment and/or blood products are available prior to the start of the case. Complications: none EBL: <5 cc 12287 - Lumbar/Sacral Procedure code (CPT) selection complete Assessment & Plan Assessment & Plan (1) Osteoarthritis of lumbosacral spine with radiculopathy: Code(s): M47.27 - Other spondylosis with radiculopathy, lumbosacral region Category: Medical Plan Patient is status post right L5 TFESI. Patient tolerated procedure well and was discharged home in stable condition with discharge instructions. All questions were answered. We will follow-up via telephone or in clinic to assess response to therapy. A follow-up appointment was made during today's visit. Orders: Orders FL guidance in treatment room Today M47.27 - Other spondylosis with radiculopathy, lumbosacral region Coding Level of Care Code Procedure Only Diagnoses Osteoarthritis of lumbosacral spine with radiculopathy M47.27 CPT Codes Transforaminal Epidural Steroid Inj - TESI 3: 52982 - Lumbar/Sacral ([id number])
[2023-08-05 07:52] VITALS: BP 122/68; PULSE 74; RESP 14; O2SAT 96; BMI 27.8
[2023-08-05 08:48] VITALS: BP 118/70; PULSE 87; RESP 14; O2SAT 98; BMI 27.8
== END 2023-08-05 08:45 | disposition home or self-care (01) ==
LOC: HO.PMCPRC 07:52
PROVIDERS: PCP Internal Medicine; Visit Provider Internal Medicine
DX: M47.27 Other spondylosis with radiculopathy, lumbosacral region (principal)
CPT/HCPCS: 64483

== ENCOUNTER 2023-08-20 08:36 | Outpatient (REF) | payer MEDICARE, SELFPAY ==
--- NOTE | ~2023-08-20 | MM_ITS ---
EXAMINATION: BONE DENSITOMETRY CLINICAL INDICATION: Personal history of systemic steroid therapy. Demineralization on plain film. COMPARISON: This is the patient's baseline examination. TECHNIQUE: Using a [employer] DXA System (software version: 13.1) manufactured by [employer], dual-energy x-ray absorptiometry was performed of the lumbar spine and left hip. The images are of good technical quality. Summary results are attached. FINDINGS: AP SPINE L1-L4: BMD 1.079 g/cm2, Z-score -0.8, T-score -1.2, osteopenia. LEFT FEMUR, NECK: BMD 0.854 g/cm2, Z-score -0.5, T-score -1.7, osteopenia. LEFT FEMUR, TOTAL: BMD 0.866 g/cm2, Z-score -0.9, T-score -1.6, osteopenia. IDENTIFIED RISK FACTORS: None listed. HISTORY OF FRACTURE: None listed. MEDICATIONS: None listed. MM/XR DEXA axial skeleton IMPRESSION: 1. DIAGNOSIS: Osteopenia based on the lowest T-score value of -1.7 in the femoral neck applying World Health Organization criteria. 2. 10-YEAR FRACTURE RISK PREDICTION, FRAX: Major osteoporotic fracture (clinical spine, forearm, hip or shoulder) 7.0%. Hip fracture 2.0%. 3. Treatment Recommendations: NOF guidelines recommend consideration for treatment in postmenopausal women and men age 50 and older presenting with the following: -A hip or vertebral (clinical or morphometric) fracture. -T-score less than or equal to -2.5 at the femoral neck or spine after appropriate evaluation to exclude secondary causes. -Low bone mass at the hip or spine and a 10-year fracture probability by FRAX of greater than or equal to 3% for hip fracture or greater than or equal to 20% for major osteoporotic fracture based on the [place] adapted WHO algorithm. 4. Other Recommendations: All treatment decisions require clinical judgment and consideration of individual patient factors, including patient preferences, comorbidities, previous drug use, risk factors not captured in the FRAX model (e.g. frailty, falls, vitamin D deficiency, increased bone turnover, interval significant decline in bone density) and possible under or overestimation of fracture risk by FRAX. Additional medical evaluation for secondary cause of low bone mineral density may be appropriate. FUTURE SCAN RECOMMENDATION: People with diagnosed cases of osteoporosis or at high risk for fracture should have regular bone mineral density tests. For patients eligible for Medicare, routine testing is allowed once every 2 years. The testing frequency can be increased to one year for patients who have rapidly progressing disease, those who are receiving or discontinuing medical therapy to restore bone mass, or have additional risk factors.
== END 2023-08-20 08:37 | disposition home or self-care (01) ==
LOC: HO.MAMMO 08:36
PROVIDERS: PCP Internal Medicine; Visit Provider Internal Medicine
DX: Z13.820 Encounter for screening for osteoporosis (principal); M85.88 Other specified disorders of bone density and structure, other site; M47.27 Other spondylosis with radiculopathy, lumbosacral region; Z92.241 Personal history of systemic steroid therapy
CPT/HCPCS: 77080

== ENCOUNTER 2023-09-03 08:11 | Outpatient (AMB) | payer MEDICARE, SELFPAY ==
--- NOTE | 2023-09-03 08:21 | A.OFFVIS_ITS ---
Vital Signs 09/03/23 08:22 Height 5 ft 9 in Weight 184 lb BMI 27.2 BP 124/59 L Blood Pressure Location Lt brachial Position Sitting Respiration 14 Pulse 81 Pulse Source Pulse Oximeter Pulse Oximetry (%) 97 Oxygen Delivery Method Room Air Intake Visit Reasons: s/p Right L5 TFESI Allergies No Known Allergies Allergy (Verified 09/03/23 08:23) Medication List - Last Reconciled 09/03/23 by Renuka Aparicio LPN acetaminophen ER (Tylenol 8 Hour) 650 mg PO Q12H bisacodyl 10 mg PO BEDTIME blood sugar diagnostic One touch Verio test strips QD docusate sodium 100 mg PO BEDTIME finasteride 5 mg PO DAILY 90 days glipizide 5 mg (1/2 x 10 mg) PO BID hydrochlorothiazide 25 mg PO DAILY lancets check glucose once a day lisinopril 30 mg PO DAILY metformin 1,000 mg PO DAILY pravastatin 80 mg PO DAILY semaglutide (Ozempic) mg subcut HPI HPI s/p Right L5 TFESI: Details: 73-year-old male who presents today to the office for a status post right L5 TFESI. The patient reports 70% relief following the procedure. The pain is better with much improvement. He has been trying to walk and gentle exercises at home. He had a DEXA scan recently which was reviewed today. He is not taking Vit D and calcium supplements. Past procedures 08/05/23: Transforaminal epidural steroid injection, Right L5: 70% relief, ongoing. FORMERLY [facility] Medical History Tubular adenoma Polymyalgia rheumatica Osteoarthritis, hand ESR raised Shoulder pain, bilateral Osteoarthritis of lumbosacral spine with radiculopathy Arthralgia Shoulder tendinitis Annual physical exam Elevated PSA Hyperlipidemia Chronic bronchitis H/O mixed hyperlipidemia Insomnia Dupuytren's contracture of both hands Mild persistent asthma Type 2 diabetes mellitus Hypertension Surgical History Hx of hand surgery H/O colonoscopy Family History Father Diabetes mellitus Mother HTN (hypertension) Sister No problems noted. Daughter No problems noted. Social History Housing: House Alcohol intake: never Patient Tobacco Use Status: Former Tobacco user Tobacco use type: Cigarette e-Cigarette/Vaping Use: Never Used Current occupational status: retired Cognitive needs: No Hearing needs: Yes Vision needs: No Review of Systems Const All systems reviewed & are unremarkable except as noted in HPI and below Physical Exam Vital Signs: Last Vital Signs Pulse 81 09/03/23 08:22 Resp 14 09/03/23 08:22 BP 124/59 L 09/03/23 08:22 Pulse Ox 97 09/03/23 08:22 Oxygen Delivery Method Room Air 09/03/23 08:22 BMI result Body Mass Index 27.2 General: Appears afebrile. Alert and oriented. Mood and affect appropriate. Follows and participates in conversation appropriately. Respiratory effort is unlabored. Able to transition from sit to stand unassisted. Ambulates with bilaterally normal heel strike and toe off. Results Reviewed Results Reviewed: 08/20/23: DEXA scan FINDINGS: AP SPINE L1-L4: BMD 1.079 g/cm2, Z-score -0.8, T-score -1.2, osteopenia. LEFT FEMUR, NECK: BMD 0.854 g/cm2, Z-score -0.5, T-score -1.7, osteopenia. LEFT FEMUR, TOTAL: BMD 0.866 g/cm2, Z-score -0.9, T-score -1.6, osteopenia. IMPRESSION: 1. DIAGNOSIS: Osteopenia based on the lowest T-score value of -1.7 in the femoral neck applying World Health Organization criteria.? 2. 10-YEAR FRACTURE RISK PREDICTION, FRAX: Major osteoporotic fracture (clinical spine, forearm, hip or shoulder) 7.0%. Hip fracture 2.0%. 3. Treatment Recommendations: NOF guidelines recommend consideration for treatment in postmenopausal women and men age 50 and older presenting with the following: -A hip or vertebral (clinical or morphometric) fracture. -T-score less than or equal to -2.5 at the femoral neck or spine after appropriate evaluation to exclude secondary causes. -Low bone mass at the hip or spine and a 10-year fracture probability by FRAX of greater than or equal to 3% for hip fracture or greater than or equal to 20% for major osteoporotic fracture based on the [place] adapted WHO algorithm. Assessment & Plan Assessment & Plan (1) Osteopenia: Code(s): M85.80 - Other specified disorders of bone density and structure, unspecified site Category: Medical (2) Osteoarthritis of lumbosacral spine with radiculopathy: Code(s): M47.27 - Other spondylosis with radiculopathy, lumbosacral region Category: Medical Plan Discussed adding vitamin-D and calcium supplementation to his diet given borderline osteopenia scores on DEXA scan. I also encouraged the patient to follow up with his primary care provider to discuss preemptive treatment with alendronate. He may require periodic DEXA scan monitoring to qualify for osteoporosis treatment as needed. Regarding his low back pain, the patient will follow up as needed. Scribed for Dr. Silva by Rodríguez Cobian, medical office technology instructor, on 09/03/2023. I, Dr. Silva, have personally reviewed and agree with the information entered by the scribe. Coding Level of Care Code Est Pt Level 3 (82932) Diagnoses Osteopenia M85.80 Osteoarthritis of lumbosacral spine with radiculopathy M47.27
[2023-09-03 08:22] VITALS: BP 124/59; PULSE 81; RESP 14; O2SAT 97; BMI 27.2
== END 2023-09-03 09:03 | disposition home or self-care (01) ==
PROVIDERS: PCP Internal Medicine; Visit Provider Internal Medicine
DX: M85.80 Other specified disorders of bone density and structure, unspecified site (principal); M47.27 Other spondylosis with radiculopathy, lumbosacral region
CPT/HCPCS: 99213

== ENCOUNTER → 2023-09-03 08:11 | Outpatient (BNVA) | payer MEDICARE, SELFPAY | PROVIDERS: PCP Internal Medicine; Visit Provider Internal Medicine | DX: M85.80 Other specified disorders of bone density and structure, unspecified site (principal); M47.27 Other spondylosis with radiculopathy, lumbosacral region | CPT/HCPCS: 99212 ==

== ENCOUNTER 2023-09-23 07:55 | Outpatient (REF) | payer MEDICARE, SELFPAY ==
[2023-09-23 11:07] LABS: Prostate Specific Antigen 5.46 ng/mL (<0.05-4.0)
== END 2023-09-23 07:56 | disposition home or self-care (01) ==
LOC: HO.HMGCLDS 07:55
PROVIDERS: PCP Internal Medicine; Visit Provider Urology
DX: N40.1 Benign prostatic hyperplasia with lower urinary tract symptoms (principal); N13.8 Other obstructive and reflux uropathy; Z12.5 Encounter for screening for malignant neoplasm of prostate
CPT/HCPCS: 36415; 84153

== ENCOUNTER 2023-09-29 15:08 | Outpatient (AMB) | payer MEDICARE, SELFPAY ==
--- NOTE | 2023-09-29 15:56 | MHC.OFFVIS ---
Intake Visit Reasons: 1y/PSA(psa?) Intake Note: Patient is Present for Follow Up PSA Urology Medication:Finasteride Antibiotic Allergies:None Blood Thinners: None Allergies No Known Allergies Allergy (Verified 09/29/23 15:56) HPI Comments Details: Vern is a very pleasant male.? He is a patient of Dr. Avery.? He is seen for the following urologic condition - elevated PSA - lower urinary tract symptoms Recent PSA check 5.5 On finasteride Given rise from prior low number would recommend prostate biopsy JAYNE 1+ soft Primary issue is diabetes management Has lost 15 lb and recently started Ozempic PVR 0 cc Lower urinary tract symptoms ?He presents for ? - further evaluation of elevated PSA - does state has weakness of stream, some? nocturia Current management is? - finasteride Laboratory investigations include? - a total PSA evaluation 10/28 3.5, 05/02 5.9, 08/30 2.2, 03/02 2.3, 08/31 2.5, 03/03 2.4, 10/03 5.5 A TRUS biopsy ? - has? not been performed Symptoms include -weakness of stream, incomplete emptying, progressing Overall symptoms are? mild His prior IPSS was mild Therapeutic plan will be? - continue finasteride, 12 month follow-up [facility] Medical History Tubular adenoma Polymyalgia rheumatica Osteoarthritis, hand ESR raised Shoulder pain, bilateral Osteoarthritis of lumbosacral spine with radiculopathy Arthralgia Shoulder tendinitis Annual physical exam Elevated PSA Hyperlipidemia Chronic bronchitis H/O mixed hyperlipidemia Insomnia Dupuytren's contracture of both hands Mild persistent asthma Type 2 diabetes mellitus Hypertension Surgical History Hx of hand surgery H/O colonoscopy Family History Father Diabetes mellitus Mother HTN (hypertension) Sister No problems noted. Daughter No problems noted. Social History Housing: House Alcohol intake: never Patient Tobacco Use Status: Former Tobacco user Tobacco use type: Cigarette e-Cigarette/Vaping Use: Never Used Current occupational status: retired Cognitive needs: No Hearing needs: Yes Vision needs: No Review of Systems Const Denies chills and Denies fever(s) Card Reports no additional complaints and Denies syncope Resp Denies cough GI Denies abdominal pain and Denies heartburn Reports as per HPI and Denies change in libido Neuro Denies syncope Psych Denies change in libido Endo Denies change in libido Physical Exam Const General: cooperative, healthy appearing, comfortable and no acute distress Orientation/consciousness: patient oriented x3 HEENT Face and sinus: Yes normal facial exam Mouth: moist mucous membranes Neck Neck: Yes normal visual inspection, Yes full ROM and Yes trachea midline Chest Chest palpation & inspection: normal inspection of the chest Resp Effort & Inspection: normal respiratory effort, able to speak in complete sentences and no respiratory distress GI Inspection: Yes normal to inspection Rectal Exam - Male: Yes normal sphincter tone and Yes prostate normal Male General Exam: Yes normal external exam Penis: normal penis and circumcised Meatus: meatus normal Scrotum: scrotum normal Testes: Testes normal Back/Spine/Pelvis Cervical Spine: normal cervical lordosis Thoracic/Lumbar Spine: thoracic and lumbar spine normal to inspection Skin General skin exam: no rashes or lesions noted Neuro General: patient oriented x3, gait normal, tone normal and moves all extremities Extrem General: Yes normal to inspection and Yes capillary refill normal Assessment & Plan Assessment & Plan (1) Elevated PSA: Comment: f/u Dr. Herbert Code(s): R97.20 - Elevated prostate specific antigen [PSA] Category: Medical Plan Risks and benefits regarding trans rectal ultrasound with prostate biopsy were discussed. Options of continued surveillance, no treatment and biopsy were offered. The risks include but are not limited to, urinary tract infection, sepsis, difficulty urinating, bleeding into the rectum or bladder that requires intervention and transfusion,and failure to diagnose prostate cancer. The patient understands the options and the risks involved. They wish to proceed. Printed information was provided to ensure he remains off anticoagulation for the appropriate length of time. He may require cardiology or PCP clearance. An antibiotic will be administered prior to, and following the procedure Prostate biopsy Medications: New levofloxacin Take day before, day of and day after procedure 500 mg PO ONCE 3 days 3 tabs 0RF R97.20 - Elevated prostate specific antigen [PSA] Patient Instructions: Imaging studies, laboratory and physical exam results were discussed and reviewed in detail. No major barriers to patient understanding were identified. An opportunity to ask questions regarding the treatment plan was provided. All questions were answered. The patient expressed understanding and agreement with the above treatment plan. The patient is aware they should contact our office by phone for worsening of their current condition or the appearance of new urologic symptoms. Compliance is encouraged with any medications and followup testing that is ordered. It is a privilege to participate in the urologic care of your patient. If you have any questions or concerns regarding treatment for the above conditions, or other urologic issues, please do not hesitate to contact me. The office telephone contact is [phone]. This note is constructed using voice recognition software. While every effort has been made to ensure accuracy butadiene converter operator errors may have been included. Yours sincerely, Dr Rusty Herbert MD, [facility] - Urology Providers of Expert, Compassionate Care for the Genitourinary System Coding Level of Care Code Est Pt Level 4 (67965) Diagnoses Elevated PSA R97.20
== END 2023-09-29 16:27 | disposition home or self-care (01) ==
PROVIDERS: PCP Internal Medicine; Visit Provider Urology
DX: R97.20 Elevated prostate specific antigen [PSA] (principal)
CPT/HCPCS: 99214

== ENCOUNTER → 2023-09-29 15:08 | Outpatient (BNVA) | payer MEDICARE, SELFPAY | PROVIDERS: PCP Internal Medicine; Visit Provider Urology | DX: R97.20 Elevated prostate specific antigen [PSA] (principal) | CPT/HCPCS: 99212 ==

== ENCOUNTER 2023-10-04 08:09 | Outpatient (REF) | payer MEDICARE, SELFPAY ==
[2023-10-04 12:09] LABS: MANUAL DIFF FLAG NO
[2023-10-04 12:13] LABS: Basophils Absolute Auto 0.1 X10*3/uL (0.0-0.2); Basophils Percent Auto 0.5 % (0-2); Eosinophils Absolute Auto 0.8 X10*3/uL (0.0-0.4); Eosinophils Percent Auto 7.3 % (0-4); Hematocrit 40.1 % (42.0-52.0); Hemoglobin 13.1 g/dl (14.0-18.0); Imm Gran Abs Auto 0.04 X10*3/uL (0.00-0.03); Imm Gran Pct Auto 0.4 % (0.0-0.4); Lymphocytes Absolute Auto 3.1 X10*3/uL (1.2-4.9); Lymphocytes Percent Auto 29.3 % (20-40); Mean Corpuscular HGB Conc 32.7 g/dl (31.0-36.0); Mean Corpuscular Hemoglobin 29.4 pg (27.0-33.0); Mean Corpuscular Volume 90.1 fL (80.0-98.0); Monocytes Absolute Auto 0.8 X10*3/uL (0.1-1.2); Monocytes Percent Auto 7.7 % (2-11); Neutrophils Absolute Auto 5.8 x10*3/uL (2.0-8.3); Neutrophils Percent Auto 54.8 % (45-73); Platelet Count 230 X10*3/uL (160-400); Red Blood Count 4.45 X10*6/uL (4.60-5.80); White Blood Count 10.6 X10*3/uL (4.8-10.8)
[2023-10-04 12:27] LABS: Estimated Average Glucose 140 mg/dL; Hemoglobin A1c % 6.5 % (<6.0)
[2023-10-04 12:35] LABS: Alanine Aminotransferase 13 U/L (0-40); Albumin Level 4.1 g/dL (3.5-5.0); Alkaline Phosphatase 69 U/L (39-117); Anion Gap 17 (12-20); Aspartate Amino Transferase 15 U/L (5-37); Bilirubin Total 0.7 mg/dL (0.0-1.0); Blood Urea Nitrogen 24 mg/dL (9-16); Calcium 9.4 mg/dL (8.4-10.2); Carbon Dioxide 25 mmol/L (22-29); Chloride 104 mmol/L (96-108); Cholesterol 152 mg/dL (<200); Estimated Glomerular Filt Rate 53; Glucose Fasting 110 mg/dL (60-99); HDL Cholesterol 39 mg/dL (>40); LDL Cholesterol Calculated 85 mg/dL (<100); Potassium 4.6 mmol/L (3.3-5.1); Sodium 141 mmol/L (135-145); Total Protein 7.6 g/dL (6.5-8.0); Triglycerides 142 mg/dL (<150)
[2023-10-04 12:55] LABS: Erythrocyte Sedimentation Rate 20 MM/HR (0-15)
== END 2023-10-04 08:10 | disposition home or self-care (01) ==
LOC: HO.HMGCLDS 08:09
PROVIDERS: PCP Internal Medicine; Visit Provider Internal Medicine
DX: E78.5 Hyperlipidemia, unspecified (principal); E11.9 Type 2 diabetes mellitus without complications; I10 Essential (primary) hypertension; M35.3 Polymyalgia rheumatica
CPT/HCPCS: 36415; 80053; 80061; 83036; 85025; 85652

== ENCOUNTER 2023-10-12 10:31 | Outpatient (AMB) | payer MEDICARE, SELFPAY ==
--- NOTE | 2023-10-12 10:59 | A.OFFPC_ITS ---
Vital Signs 10/12/23 11:00 Height 5 ft 9 in Weight 185 lb BMI 27.3 BP 124/66 Blood Pressure Location Lt brachial Position Sitting Pulse 78 Pulse Source Pulse Oximeter Pulse Oximetry (%) 97 Oxygen Delivery Method Room Air Intake Visit Reasons: 4 month fu Intake Note: Pt is here today for 4 months follow up visit. Allergies No Known Allergies Allergy (Verified 10/12/23 11:03) Medication List - Last Reconciled 10/12/23 by Hiral Avery MD acetaminophen ER (Tylenol 8 Hour) 650 mg PO Q12H bisacodyl 10 mg PO BEDTIME blood sugar diagnostic One touch Verio test strips QD docusate sodium 100 mg PO BEDTIME finasteride 5 mg PO DAILY 90 days glipizide 5 mg (1/2 x 10 mg) PO BID hydrochlorothiazide 25 mg PO DAILY lancets check glucose once a day lisinopril 30 mg PO DAILY metformin 1,000 mg PO DAILY pravastatin 80 mg PO DAILY Tobacco use date assessed: 10/12/23 Fall risk assessment: No Falls in past year Last assessed Fall Risk: 10/12/23 Dental Screening Dental Screen Date: 06/22/23 HPI 4 month fu HPI Details Patient presents for the follow-up on hypertension type 2 diabetes hyperlipidemia stable on current medications. He will have prostate biopsy for rising PSA level. [facility], [facility] Medical History Tubular adenoma Polymyalgia rheumatica Osteoarthritis, hand ESR raised Shoulder pain, bilateral Osteoarthritis of lumbosacral spine with radiculopathy Arthralgia Shoulder tendinitis Annual physical exam Elevated PSA Hyperlipidemia Chronic bronchitis H/O mixed hyperlipidemia Insomnia Dupuytren's contracture of both hands Mild persistent asthma Type 2 diabetes mellitus Hypertension Surgical History Hx of hand surgery H/O colonoscopy Family History Father Diabetes mellitus Mother HTN (hypertension) Sister No problems noted. Daughter No problems noted. Social History Housing: House Alcohol intake: never Patient Tobacco Use Status: Former Tobacco user Tobacco use type: Cigarette e-Cigarette/Vaping Use: Never Used service: No Current occupational status: retired Cognitive needs: No Hearing needs: Yes Vision needs: No Questionnaire Thrive Questionnaire Date Thrive assessed: 06/22/23 NASIM-7 AMB Questionnaire NASIM-7 Date NASIM - 7 assessed: 06/22/23 Source: Developed by Drs. Sebastien Paz, Natalia Brown, Bharath Lubin and colleagues, with an educational rachele from [employer]. Review of Systems Const All systems reviewed & are unremarkable except as noted in HPI and below Card Reports no additional complaints Resp Reports no additional complaints GI Reports no additional complaints Reports no additional complaints Physical exam (Primary Care) Vital Signs: Last Vital Signs Pulse 78 10/12/23 11:00 BP 124/66 10/12/23 11:00 Pulse Ox 97 10/12/23 11:00 Oxygen Delivery Method Room Air 10/12/23 11:00 BMI result Body Mass Index 27.3 Tobacco/Smoking Status: Tobacco use Status Tobacco use date assessed 10/12/23 10/12/23 11:05 Patient Tobacco Use Status Former Tobacco user 10/12/23 11:05 Tobacco use type Cigarette 10/12/23 11:05 e-Cigarette/Vaping Use Never Used 10/12/23 11:05 Thrive Assessment: Date of Thrive Assessment Date Thrive assessed 06/22/23 10/12/23 11:05 Const General: no acute distress HENMT Face and sinus: Yes normal facial exam Eyes General: appearance normal, both eyes and all related structures Neck Neck: Yes supple Resp Effort & Inspection: normal respiratory effort Auscultation: clear to auscultation bilaterally Cardio Rhythm: regular rhythm Heart sounds: S1 normal heart sound present and S2 normal heart sound present GI Inspection: Yes normal to inspection Assessment and Plan Assessment & Plan (1) Hypertension: Code(s): I10 - Essential (primary) hypertension Plan: Continue current medications (2) Type 2 diabetes mellitus: Comment: Could not tolerate 2000 mg of metformin because of diarrhea, cannot afford Farxiga or Ozempic Code(s): E11.9 - Type 2 diabetes mellitus without complications Plan: A1c is 6.5, ADA diet increase exercise weight loss discussed with the patient. Follow-up in 4 months with a fasting labs before (3) Hyperlipidemia: Code(s): E78.5 - Hyperlipidemia, unspecified Plan: Continue statin (4) Osteopenia: Comment: dexa 08/2023 Code(s): M85.80 - Other specified disorders of bone density and structure, unspecified site Plan: Weight-bearing exercises and vitamin-D supplement discussed with the patient Orders: Orders Complete Blood Count Auto Diff 4 Months E11.9 - Type 2 diabetes mellitus without complications, E78.5 - Hyperlipidemia, unspecified, I10 - Essential (primary) hypertension, M85.80 - Other specified disorders of bone density and structure, unspecified site Lipid Panel 4 Months E11.9 - Type 2 diabetes mellitus without complications, E78.5 - Hyperlipidemia, unspecified, I10 - Essential (primary) hypertension, M85.80 - Other specified disorders of bone density and structure, unspecified site Comprehensive [place]. Panel Fast 4 Months E11.9 - Type 2 diabetes mellitus without complications, E78.5 - Hyperlipidemia, unspecified, I10 - Essential (primary) hypertension, M85.80 - Other specified disorders of bone density and structure, unspecified site Hemoglobin A1c 4 Months E11.9 - Type 2 diabetes mellitus without complications, E78.5 - Hyperlipidemia, unspecified, I10 - Essential (primary) hypertension, M85.80 - Other specified disorders of bone density and structure, unspecified site Microalbumin, Random (w Creat) 4 Months E11.9 - Type 2 diabetes mellitus without complications, E78.5 - Hyperlipidemia, unspecified, I10 - Essential (primary) hypertension, M85.80 - Other specified disorders of bone density and structure, unspecified site Coding Level of Care Code Est Pt Level 4 (69145) Diagnoses Hypertension I10 Type 2 diabetes mellitus E11.9 Hyperlipidemia E78.5 Osteopenia M85.80
[2023-10-12 11:00] VITALS: BP 124/66; PULSE 78; O2SAT 97; BMI 27.3
== END 2023-10-12 11:42 | disposition home or self-care (01) ==
PROVIDERS: PCP Internal Medicine; Visit Provider Internal Medicine
DX: I10 Essential (primary) hypertension (principal); E11.9 Type 2 diabetes mellitus without complications; E78.5 Hyperlipidemia, unspecified; M85.80 Other specified disorders of bone density and structure, unspecified site
CPT/HCPCS: 99214

== ENCOUNTER 2023-11-09 07:23 | Outpatient (REF) | payer MEDICARE, SELFPAY ==
--- NOTE | 2023-11-09 08:32 | P.OP_ITS ---
Operative Note Operative Note Date of Service: 11/09/23 Narrative: Preoperative diagnosis: Elevated PSA Postoperative diagnosis: Elevated PSA Procedure: 1. transrectal ultrasound measurement of prostate 2. transrectal ultrasound-guided pudendal nerve block 3. transrectal ultrasound-guided prostate biopsy 12 core Surgeon: Dr. Rusty Herbert Anesthetic: 10cc 1% lidocaine Indications for procedure: Elevated PSA 5.5 on finasteride Counselling: Technical aspects, risks and benefits of proposed procedure were d iscussed in full. All questions have been answered, written consent has been obtained and patient agrees to proceed. Procedure: The patient was brought into the procedure area and placed in a left lateral decubitus position. Patient identity confirmed. Perioperative antibiotics confirmed. Safety pause time out performed. JAYNE was performed to dilate rectal sphincter Iodine 10cc with 60 cc gel was placed per rectum to reduce infection risk using a catheter tip syringe. 8 Hz Muriel rectal end-fire ultrasound probe was placed transrectally without difficulty. The prostate was visualized. Seminal vesicles were normal. Prostate margins were clearly demarcated. Bladder was seen superiorly. No cystic structures were noted No calcifications were noted at the surgical margin The prostate was otherwise homogeneous in nature The prostate was measured in 3 dimensions Prostatic Width: 4.8 cm Prostatic Height: 4.3 cm Urethral Length: 4.8 cm Total volume equals : 52 ml An ultrasound-guided pudendal nerve block was performed using a 22 gauge spinal needle in the sagittal plane. 4 cc of 1% lidocaine placed at the junction of each seminal vesicle and 2 cc placed at the apex of the prostate. A 12 core biopsy was performed with 6 cores each side using an 18 gauge prostate biopsy gun. Two cores each were taken at the prostate apex, mid and base on each side. Cores were spaced between lateral and medial aspects. Each core was examined as placed on specimen foam as part of senior quality engineer to ensure a minimum 1 cm of length and minimal discontinuity. He tolerated the procedure well with minimal rectal bleeding. Blood pressure remained stable following procedure. He was able to ambulate to bathroom after 5 minutes. Printed instructions regarding antibiotic use and common adverse events from the procedure such as low-grade temperature, potential infection and bleeding were given. He understands to call the office or go to an emergency room should any of these events arise. Pathology: 12 core prostate biopsy. CPT code 32581: Transrectal ultrasound; this is a diagnostic test for evaluation of the prostate and surrounding structures, looking for abnormalities or suspicious areas worrisome for cancer (requires full measurement details) CPT code 54152: Biopsy, prostate; needle or punch, single or multiple, any approach CPT code 55383: Ultrasonic guidance for needle placement (eg, biopsy, aspiration, injection, localization device), imaging supervision and interpretation
[2023-11-09] MEDS: Lidocaine HCl 1 % 20 ML VIAL SUBCUT (09:07)
== END 2023-11-09 07:24 | disposition home or self-care (01) ==
LOC: HO.US 07:23
PROVIDERS: PCP Internal Medicine; Visit Provider Urology
DX: R97.20 Elevated prostate specific antigen [PSA] (principal)
CPT/HCPCS: 55700; 76942; 88305; 88344

== ENCOUNTER → 2023-11-09 07:23 | Outpatient (BNV) | payer MEDICARE, SELFPAY | PROVIDERS: PCP Internal Medicine; Visit Provider Urology | DX: R97.20 Elevated prostate specific antigen [PSA] (principal) | CPT/HCPCS: 55700; 76872; 76942 ==

== ENCOUNTER 2023-11-24 13:25 | Outpatient (AMB) | payer MEDICARE, SELFPAY ==
--- NOTE | 2023-11-24 13:56 | A.OFFVIS_ITS ---
Intake Visit Reasons: Prostate biopsy results Intake Note: Patient is present for Prostate Biopsy Results Allergies No Known Allergies Allergy (Verified 02/02/24 13:07) Medication List - Last Reconciled 11/24/23 by Rusty Herbert MD acetaminophen ER (Tylenol 8 Hour) 650 mg PO Q12H bisacodyl 10 mg PO BEDTIME blood sugar diagnostic One touch Verio test strips QD docusate sodium 100 mg PO BEDTIME finasteride 5 mg PO DAILY 90 days glipizide 5 mg (1/2 x 10 mg) PO BID hydrochlorothiazide 25 mg PO DAILY lancets check glucose once a day levofloxacin 500 mg PO DAILY 3 days lisinopril 30 mg PO DAILY metformin 1,000 mg PO DAILY pravastatin 80 mg PO DAILY HPI Comments Details: Vern is a very pleasant male.? He is a patient of Dr. Avery.? He is seen for the following urologic condition - prostate cancer - lower urinary tract symptoms Prostate cancer diagnosis Plan for MRI and PET-CT Given age radiation would be likely first-line therapy Prostate cancer 12/0324 Grade Group 3, slow volume PSA 5.5 Histologic type: Prostatic adenocarcinoma, acinar type Alfreda score: 4+3=7 (left mid lateral 60%) 3+4=7 (left apex lateral and medial 5% 40%) 3+3=6 (left mid medial 20%) % of pattern 4: Approximately 25% Grade group: 3, 2 and 1 Lower urinary tract symptoms ?He presents for ? - further evaluation of elevated PSA - does state has weakness of stream, some? nocturia Current management is? - finasteride Laboratory investigations include? - a total PSA evaluation 10/28 3.5, 05/02 5.9, 08/30 2.2, 03/02 2.3, 08/31 2.5, 03/03 2.4, 10/03 5.5 A TRUS biopsy ? - has? not been performed Symptoms include -weakness of stream, incomplete emptying, progressing Overall symptoms are? mild His prior IPSS was mild Therapeutic plan will be? - continue finasteride, 12 month follow-up [facility] Medical History Tubular adenoma Polymyalgia rheumatica Osteoarthritis, hand ESR raised Shoulder pain, bilateral Osteoarthritis of lumbosacral spine with radiculopathy Arthralgia Shoulder tendinitis Annual physical exam Elevated PSA Hyperlipidemia Chronic bronchitis H/O mixed hyperlipidemia Insomnia Dupuytren's contracture of both hands Mild persistent asthma Type 2 diabetes mellitus Hypertension Surgical History Hx of hand surgery H/O colonoscopy Family History Father Diabetes mellitus Mother HTN (hypertension) Sister No problems noted. Daughter No problems noted. Social History Housing: House Alcohol intake: never Patient Tobacco Use Status: Former Tobacco user Tobacco use type: Cigarette e-Cigarette/Vaping Use: Never Used service: No Current occupational status: retired Cognitive needs: No Hearing needs: Yes Vision needs: No Review of Systems Const Denies chills and Denies fever(s) Card Reports no additional complaints and Denies syncope Resp Denies cough GI Denies abdominal pain and Denies heartburn Reports as per HPI and Denies change in libido Neuro Denies syncope Psych Denies change in libido Endo Denies change in libido Physical Exam Const General: cooperative, healthy appearing, comfortable and no acute distress Orientation/consciousness: patient oriented x3 HEENT Face and sinus: Yes normal facial exam Mouth: moist mucous membranes Neck Neck: Yes normal visual inspection, Yes full ROM and Yes trachea midline Chest Chest palpation & inspection: normal inspection of the chest Resp Effort & Inspection: normal respiratory effort, able to speak in complete sentences and no respiratory distress GI Inspection: Yes normal to inspection Back/Spine/Pelvis Cervical Spine: normal cervical lordosis Thoracic/Lumbar Spine: thoracic and lumbar spine normal to inspection Skin General skin exam: no rashes or lesions noted Neuro General: patient oriented x3, gait normal, tone normal and moves all extremities Extrem General: Yes normal to inspection and Yes capillary refill normal Assessment & Plan Assessment & Plan (1) Prostate cancer: Comment: Intermediate risk Code(s): C61 - Malignant neoplasm of prostate Category: Medical Plan Complete prostate cancer staging Orders: Orders PET CT fusion skull to thigh 11/24/23 C61 - Malignant neoplasm of prostate MR pelvis wo/w con 3 Weeks C61 - Malignant neoplasm of prostate Patient Instructions: Imaging studies, laboratory and physical exam results were discussed and reviewed in detail. No major barriers to patient understanding were identified. An opportunity to ask questions regarding the treatment plan was provided. All questions were answered. The patient expressed understanding and agreement with the above treatment plan. The patient is aware they should contact our office by phone for worsening of their current condition or the appearance of new urologic symptoms. Compliance is encouraged with any medications and followup testing that is ordered. It is a privilege to participate in the urologic care of your patient. If you have any questions or concerns regarding treatment for the above conditions, or other urologic issues, please do not hesitate to contact me. The office telephone contact is [phone]. This note is constructed using voice recognition software. While every effort has been made to ensure accuracy collar stay fuser tender errors may have been included. Yours sincerely, Dr Rusty Herbert MD, [facility] - Urology Providers of Expert, Compassionate Care for the Genitourinary System Coding Level of Care Code Est Pt Level 4 (53190) Diagnoses Prostate cancer C61
== END 2023-11-24 14:18 | disposition home or self-care (01) ==
PROVIDERS: PCP Internal Medicine; Visit Provider Urology
DX: C61 Malignant neoplasm of prostate (principal)
CPT/HCPCS: 99214

== ENCOUNTER → 2023-11-24 13:25 | Outpatient (BNVA) | payer MEDICARE, SELFPAY | PROVIDERS: PCP Internal Medicine; Visit Provider Urology | DX: C61 Malignant neoplasm of prostate (principal); R39.12 Poor urinary stream; R35.1 Nocturia; R33.9 Retention of urine, unspecified; Z79.899 Other long term (current) drug therapy | CPT/HCPCS: 99212 ==

== ENCOUNTER 2024-02-02 12:37 | Outpatient (AMB) | payer MEDICARE, SELFPAY ==
--- NOTE | 2024-02-02 13:04 | MHC.OFFVIS ---
Intake Visit Reasons: 6w/MRI/Pet-CT(set) Intake Note: Patient is present for PET CT/Prostate MRI follow Up Urology Med: Finasteride Antibiotic Allergy:None Blood Thinner: None PET CT- 01/17/24 PROSTATE MRI- 01/08/24 J2Ee Application Developer Required: No Documentation Nurse: Documentation Nurse Present Accompanied by: Spouse Allergies No Known Allergies Allergy (Verified 02/02/24 13:07) HPI Comments Details: Vern is a very pleasant male.? He is a patient of Dr. Avery.? He is seen for the following urologic condition - prostate cancer - lower urinary tract symptoms Discussed imaging findings PSMA/PET - no evidence of metastatic disease. Disease confined to prostate Prostate MRI - 35 g prostate. LAPZ base 1.8 cm broad abutment, LATZ mid/apex 0.9 cm Based on age, grade group, prostate volume recommend external beam radiation - hypofractionated with rectal spacer Organize GnRH Referral to Radiation Oncology Plan for fiducial markers with space rectal placement Prostate cancer 12/0324 Grade Group 3, slow volume PSA 5.5 Histologic type: Prostatic adenocarcinoma, acinar type Alfreda score: 4+3=7 (left mid lateral 60%) 3+4=7 (left apex lateral and medial 5% 40%) 3+3=6 (left mid medial 20%) % of pattern 4: Approximately 25% Grade group: 3, 2 and 1 Lower urinary tract symptoms ?He presents for ? - further evaluation of elevated PSA - does state has weakness of stream, some? nocturia Current management is? - finasteride Laboratory investigations include? - a total PSA evaluation 10/28 3.5, 05/02 5.9, 08/30 2.2, 03/02 2.3, 08/31 2.5, 03/03 2.4, 10/03 5.5 A TRUS biopsy ? - has? not been performed Symptoms include -weakness of stream, incomplete emptying, progressing Overall symptoms are? mild His prior IPSS was mild Therapeutic plan will be? - continue finasteride, 12 month follow-up [facility] Medical History Tubular adenoma Polymyalgia rheumatica Osteoarthritis, hand ESR raised Shoulder pain, bilateral Osteoarthritis of lumbosacral spine with radiculopathy Arthralgia Shoulder tendinitis Annual physical exam Elevated PSA Hyperlipidemia Chronic bronchitis H/O mixed hyperlipidemia Insomnia Dupuytren's contracture of both hands Mild persistent asthma Type 2 diabetes mellitus Hypertension Surgical History Hx of hand surgery H/O colonoscopy Family History Father Diabetes mellitus Mother HTN (hypertension) Sister No problems noted. Daughter No problems noted. Social History Housing: House Alcohol intake: never Patient Tobacco Use Status: Former Tobacco user Tobacco use type: Cigarette e-Cigarette/Vaping Use: Never Used service: No Current occupational status: retired Cognitive needs: No Hearing needs: Yes Vision needs: No Review of Systems Const Denies chills and Denies fever(s) Card Reports no additional complaints and Denies syncope Resp Denies cough GI Denies abdominal pain and Denies heartburn Reports as per HPI and Denies change in libido Neuro Denies syncope Psych Denies change in libido Endo Denies change in libido Physical Exam Const General: cooperative, healthy appearing, comfortable and no acute distress Orientation/consciousness: patient oriented x3 HEENT Face and sinus: Yes normal facial exam Mouth: moist mucous membranes Neck Neck: Yes normal visual inspection, Yes full ROM and Yes trachea midline Chest Chest palpation & inspection: normal inspection of the chest Resp Effort & Inspection: normal respiratory effort, able to speak in complete sentences and no respiratory distress GI Inspection: Yes normal to inspection Back/Spine/Pelvis Cervical Spine: normal cervical lordosis Thoracic/Lumbar Spine: thoracic and lumbar spine normal to inspection Skin General skin exam: no rashes or lesions noted Neuro General: patient oriented x3, gait normal, tone normal and moves all extremities Extrem General: Yes normal to inspection and Yes capillary refill normal Assessment & Plan Assessment & Plan (1) Prostate cancer: Comment: Intermediate risk Code(s): C61 - Malignant neoplasm of prostate Category: Medical Plan Unfavorable intermediate prostate cancer Plan GnRH with external beam radiation Orders: Referrals Radiation Oncology Referral C61 - Malignant neoplasm of prostate Patient Instructions: Imaging studies, laboratory and physical exam results were discussed and reviewed in detail. No major barriers to patient understanding were identified. An opportunity to ask questions regarding the treatment plan was provided. All questions were answered. The patient expressed understanding and agreement with the above treatment plan. The patient is aware they should contact our office by phone for worsening of their current condition or the appearance of new urologic symptoms. Compliance is encouraged with any medications and followup testing that is ordered. It is a privilege to participate in the urologic care of your patient. If you have any questions or concerns regarding treatment for the above conditions, or other urologic issues, please do not hesitate to contact me. The office telephone contact is [phone]. This note is constructed using voice recognition software. While every effort has been made to ensure accuracy winch derrick operator errors may have been included. Yours sincerely, Dr Rusty Herbert MD, [facility] - Urology Providers of Expert, Compassionate Care for the Genitourinary System Coding Level of Care Code Est Pt Level 4 (31425) Diagnoses Prostate cancer C61
== END 2024-02-02 13:32 | disposition home or self-care (01) ==
PROVIDERS: PCP Internal Medicine; Visit Provider Urology
DX: C61 Malignant neoplasm of prostate (principal)
CPT/HCPCS: 99214

== ENCOUNTER → 2024-02-02 12:37 | Outpatient (BNVA) | payer MEDICARE, SELFPAY | PROVIDERS: PCP Internal Medicine; Visit Provider Urology | DX: C61 Malignant neoplasm of prostate (principal) | CPT/HCPCS: 99212 ==

== ENCOUNTER 2024-02-09 07:45 | Outpatient (REF) | payer MEDICARE, SELFPAY ==
[2024-02-09 10:04] LABS: MANUAL DIFF FLAG NO
[2024-02-09 10:09] LABS: Basophils Percent Auto 0.4 % (0-2); Eosinophils Absolute Auto 0.2 X10*3/uL (0.0-0.4); Hematocrit 35.1 % (42.0-52.0); Imm Gran Abs Auto 0.02 X10*3/uL (0.00-0.03); Imm Gran Pct Auto 0.4 % (0.0-0.4); Lymphocytes Percent Auto 52.3 % (20-40); Mean Corpuscular HGB Conc 34.2 g/dl (31.0-36.0); Mean Corpuscular Hemoglobin 30.9 pg (27.0-33.0); Mean Corpuscular Volume 90.5 fL (80.0-98.0); Mean Platelet Volume 9.8 fL (9.4-12.4); Monocytes Absolute Auto 0.3 X10*3/uL (0.1-1.2); Monocytes Percent Auto 4.4 % (2-11); Neutrophils Absolute Auto 2.3 x10*3/uL (2.0-8.3); Neutrophils Percent Auto 39.5 % (45-73); Red Blood Count 3.88 X10*6/uL (4.60-5.80); Red Cell Distribution Width 14.6 % (11.0-16.0); White Blood Count 5.7 X10*3/uL (4.8-10.8)
[2024-02-09 10:17] LABS: Platelet Count 111 X10*3/uL (160-400)
[2024-02-09 10:42] LABS: Estimated Average Glucose 157 mg/dL; Hemoglobin A1C 164.0282 umol/L; Hemoglobin A1c % 7.1 % (<6.0); Total Hemoglobin (HGBA1C) 3033.0462 umol/L
[2024-02-09 10:51] LABS: Alanine Aminotransferase 17 U/L (0-40); Alkaline Phosphatase 68 U/L (39-117); Anion Gap 14 (12-20); Aspartate Amino Transferase 20 U/L (5-37); Bilirubin Total 0.8 mg/dL (0.0-1.0); Blood Urea Nitrogen 23 mg/dL (9-16); Carbon Dioxide 25 mmol/L (22-29); Chloride 104 mmol/L (96-108); Cholesterol 149 mg/dL (<200); Estimated Glomerular Filt Rate 53; Glucose Fasting 161 mg/dL (60-99); HDL Cholesterol 38 mg/dL (>40); LDL Cholesterol Calculated 73 mg/dL (<100); Potassium 4.5 mmol/L (3.3-5.1); Sodium 138 mmol/L (135-145); Total Protein 7.6 g/dL (6.5-8.0); Triglycerides 191 mg/dL (<150)
[2024-02-09 11:37] LABS: Creatinine Urine 96.05 mg/dL; Microalbumin Urine < 5.0 mg/L
== END 2024-02-09 07:46 | disposition home or self-care (01) ==
LOC: HO.HMGCLDS 07:45
PROVIDERS: PCP Internal Medicine; Visit Provider Internal Medicine
DX: M85.80 Other specified disorders of bone density and structure, unspecified site (principal); E11.9 Type 2 diabetes mellitus without complications; I10 Essential (primary) hypertension; E78.5 Hyperlipidemia, unspecified
CPT/HCPCS: 36415; 80053; 80061; 82043; 82570; 83036; 85025

== ENCOUNTER 2024-02-15 10:13 | Outpatient (AMB) | payer MEDICARE, SELFPAY ==
--- NOTE | 2024-02-15 10:52 | A.OFFPC_ITS ---
Vital Signs 02/15/24 10:53 Height 5 ft 9 in Weight 189 lb BMI 27.9 BP 120/66 Blood Pressure Location Lt brachial Position Sitting Pulse 100 Pulse Source Pulse Oximeter Pulse Oximetry (%) 97 Oxygen Delivery Method Room Air Intake Visit Reasons: 4 month fu Intake Note: Pt is here today for 4 months follow up visit on DM. Allergies No Known Allergies Allergy (Verified 02/15/24 10:54) Medication List - Last Reconciled 02/15/24 by Hiral Avery MD acetaminophen ER (Tylenol 8 Hour) 650 mg PO Q12H bisacodyl 10 mg PO BEDTIME blood sugar diagnostic One touch Verio test strips QD docusate sodium 100 mg PO BEDTIME finasteride 5 mg PO DAILY 90 days glipizide 5 mg (1/2 x 10 mg) PO BID hydrochlorothiazide 25 mg PO DAILY lancets check glucose once a day levofloxacin 500 mg PO DAILY 3 days lisinopril 30 mg PO DAILY metformin 1,000 mg PO DAILY pravastatin 80 mg PO DAILY Tobacco use date assessed: 10/12/23 Dental Screening Dental Screen Date: 06/22/23 HPI 4 month fu HPI Details Patient presents for the follow-up of type 2 diabetes hyperlipidemia and newly diagnosed prostate CA. He will be starting radiation therapy [facility] Medical History Tubular adenoma Polymyalgia rheumatica Osteoarthritis, hand ESR raised Shoulder pain, bilateral Osteoarthritis of lumbosacral spine with radiculopathy Arthralgia Shoulder tendinitis Annual physical exam Elevated PSA Hyperlipidemia Chronic bronchitis H/O mixed hyperlipidemia Insomnia Dupuytren's contracture of both hands Mild persistent asthma Type 2 diabetes mellitus Hypertension Surgical History Hx of hand surgery H/O colonoscopy Family History Father Diabetes mellitus Mother HTN (hypertension) Sister No problems noted. Daughter No problems noted. Social History Housing: House Alcohol intake: never Patient Tobacco Use Status: Former Tobacco user Tobacco use type: Cigarette e-Cigarette/Vaping Use: Never Used service: No Current occupational status: retired Cognitive needs: No Hearing needs: Yes Vision needs: No Questionnaire PHQ-9 Over the last 2 weeks, how often have you been bothered by any of the following problems? 1. Little interest or pleasure in doing things: not at all 2. Feeling down, depressed, or hopeless: not at all 3. Trouble falling or staying asleep, or sleeping too much: not at all 4. Feeling tired or having little energy: several days 5. Poor appetite or overeating: several days 6. Feeling bad about yourself - or that you are a failure or have let yourself or your family down: not at all 7. Trouble concentrating on things, such as reading the newspaper or watching television: not at all 8. Moving or speaking so slowly that other people could have noticed. Or the opposite - being so fidgety or restless that you have been moving around a lot more than usual: not at all 9. Thoughts that you would be better off or of hurting yourself in some way: not at all Total score: 2 Depression Screening Interpretation: Negative Depression Screening Done: Yes 14062 - PHQ-9 Billing: Yes Source: Developed by Drs. Sebastien Paz, Natalia Brown, Bharath Lubin and colleagues, with an educational rachele from [employer]. Thrive Questionnaire Date Thrive assessed: 06/22/23 I am a: Patient What is your living situation today?: I have a steady place to live Within the past 12 months, did the food you bought not last and you didn't have the money to get more?: Never true Within the past 12 months, did you worry whether your food would run out before you got money to buy more?: Never true Do you have trouble paying for medicines?: No Do you have trouble getting transportation to medical appointments?: No Do you have trouble paying your heating and electricity bill?: No Do you have trouble taking care of your child, family member or friend?: No Do you have trouble with day-to-day activities such as bathing, preparing meals, shopping, managing finances, etc.?: No Are you currently unemployed and looking for a job?: No Are you interested in more education?: Yes Please select the resources that you would like help with: Education Currently or been in a relationship where the following occur: I choose not to answer THRIVE Score: 0 AUDIT C Alcohol Use Questionnaire (AUDIT-C) 1. How often do you have a drink containing alcohol?: Never 2. How many drinks containing alcohol do you have on a typical day when you are drinking?: 1 or 2 3. How often do you have six or more drinks on one occasion?: Never Total Score: 0 NASIM-7 AMB Questionnaire NASIM-7 Date NASIM - 7 assessed: 06/22/23 Feeling nervous, anxious, or on edge: 0 = Not at all Not being able to stop or control worryin = Not at all Worrying too much about different things: 0 = Not at all Trouble relaxin = Not at all Being so restless that it is hard to sit still: 0 = Not at all Becoming easily annoyed or irritable: 0 = Not at all Feeling afraid as if something awful might happen: 0 = Not at all Total NASIM-7 score (0-4 normal; 5-9 mild; 10-14 moderate; 15-21 severe): 0 Source: Developed by Drs. Sebastien Paz, Natalia Brown, Bharath Lubin and colleagues, with an educational rachele from [employer]. Review of Systems Const All systems reviewed & are unremarkable except as noted in HPI and below ENT Reports no additional complaints Card Reports no additional complaints Resp Reports no additional complaints GI Reports no additional complaints Reports no additional complaints Physical exam (Primary Care) Vital Signs: Last Vital Signs Pulse 100 02/15/24 10:53 BP 120/66 02/15/24 10:53 Pulse Ox 97 02/15/24 10:53 Oxygen Delivery Method Room Air 02/15/24 10:53 BMI result Body Mass Index 27.9 Tobacco/Smoking Status: Tobacco use Status Tobacco use date assessed 10/12/23 02/15/24 10:57 Patient Tobacco Use Status Former Tobacco user 02/15/24 10:57 Tobacco use type Cigarette 02/15/24 10:57 e-Cigarette/Vaping Use Never Used 02/15/24 10:57 PHQ-9: PHQ-9 Score PHQ-9: Total score 2 02/15/24 12:20 Depression Screening Interpretation: Negative Thrive Assessment: Date of Thrive Assessment Date Thrive assessed 06/22/23 02/15/24 10:57 Currently or been in a relationship where the following occur: I choose not to answer Const General: no acute distress Resp Effort & Inspection: normal respiratory effort Auscultation: clear to auscultation bilaterally Cardio Rhythm: regular rhythm Heart sounds: S1 normal heart sound present and S2 normal heart sound present GI Inspection: Yes normal to inspection Palpation (GI): Soft to palpation Percussion: Yes normal to percussion Auscultation: normal bowel sounds Coding Level of Care Code Est Pt Level 4 (90818) Complex EM visit Add On G2211 Diagnoses Prostate cancer C61 Anemia D64.9 Type 2 diabetes mellitus E11.9 Hyperlipidemia E78.5 Assessment & Plan Assessment & Plan (1) Prostate cancer: Comment: Intermediate risk, f/u Dr. Herbert, will start RTx 02/2024 Code(s): C61 - Malignant neoplasm of prostate Category: Medical Plan: Follow-up with urology (2) Anemia: Comment: Colonoscopy consistent with multiple AVMs and 2 polyps 2023 Code(s): D64.9 - Anemia, unspecified Category: Medical Plan: Monitor CBC and iron count (3) Type 2 diabetes mellitus: Comment: Could not tolerate 2000 mg of metformin because of diarrhea, cannot afford Farxiga or Ozempic Code(s): E11.9 - Type 2 diabetes mellitus without complications Category: Medical Plan: A1c is 7.1, patient was advised to start Ozempic 0.25 weekly regularly and monitor his blood glucose. For decreasing fasting glucose to less than 80 he was advised to decrease glipizide to half a tablet once a day continue metformin follow-up in 3 months (4) Hyperlipidemia: Code(s): E78.5 - Hyperlipidemia, unspecified Category: Medical Plan: Continue statin Orders: Orders Vitamin B12 and Folate Today C61 - Malignant neoplasm of prostate, D64.9 - Anemia, unspecified Hemoglobin A1c 3 Months C61 - Malignant neoplasm of prostate, D64.9 - Anemia, unspecified, E11.9 - Type 2 diabetes mellitus without complications, E78.5 - Hyperlipidemia, unspecified Comprehensive [place]. Panel Fast 3 Months C61 - Malignant neoplasm of prostate, D64.9 - Anemia, unspecified, E11.9 - Type 2 diabetes mellitus without complications, E78.5 - Hyperlipidemia, unspecified Complete Blood Count Auto Diff 3 Months C61 - Malignant neoplasm of prostate, D64.9 - Anemia, unspecified, E11.9 - Type 2 diabetes mellitus without complications, E78.5 - Hyperlipidemia, unspecified IRON PROFILE Today C61 - Malignant neoplasm of prostate, D64.9 - Anemia, un specified Lipid Panel 3 Months C61 - Malignant neoplasm of prostate, D64.9 - Anemia, unspecified, E11.9 - Type 2 diabetes mellitus without complications, E78.5 - Hyperlipidemia, unspecified Microalbumin, Random (w Creat) 3 Months C61 - Malignant neoplasm of prostate, D64.9 - Anemia, unspecified, E11.9 - Type 2 diabetes mellitus without complica tions, E78.5 - Hyperlipidemia, unspecified IRON PROFILE 3 Months C61 - Malignant neoplasm of prostate, D64.9 - Anemia, unspecified, E11.9 - Type 2 diabetes mellitus without complications, E78.5 - Hyperlipidemia, unspecified Medications: New semaglutide (Ozempic) 0.25 mg (0.368 mL) subcut QWEEK 3 mL 3RF Refilled levofloxacin take day before procedure, day of and for day after procedure 500 mg PO DAILY 3 days 3 tabs 0RF
[2024-02-15 10:53] VITALS: BP 120/66; PULSE 100; O2SAT 97; BMI 27.9
== END 2024-02-15 11:28 | disposition home or self-care (01) ==
LOC: HO.HMCC 10:14
PROVIDERS: PCP Internal Medicine; Visit Provider Internal Medicine
DX: C61 Malignant neoplasm of prostate (principal); D64.9 Anemia, unspecified; E11.9 Type 2 diabetes mellitus without complications; E78.5 Hyperlipidemia, unspecified

== ENCOUNTER → 2024-02-15 10:13 | Outpatient (BNVA) | payer MEDICARE, SELFPAY | PROVIDERS: PCP Internal Medicine; Visit Provider Internal Medicine | DX: C61 Malignant neoplasm of prostate (principal); D64.9 Anemia, unspecified; E11.9 Type 2 diabetes mellitus without complications; E78.5 Hyperlipidemia, unspecified | CPT/HCPCS: 96127; 99212 ==

== ENCOUNTER 2024-02-22 11:04 | Outpatient (AMB) | payer MEDICARE, SELFPAY ==
--- NOTE | 2024-02-22 11:35 | AM.OFFVISNUR ---
Intake Visit Reasons: [facility](PA Set) Allergies No Known Allergies Allergy (Verified 02/15/24 10:54) Office Meds Eligard (6 month) 45 mg (6 month) subcutaneous syringe Performing Provider: Rusty Herbert MD Per[facility] [place] [facility] Administered by: Charles Stinson LPN on 02/22/24 11:35 Dose Route Admin Location Dispensed Lot Number Expiration Date [facility] Manager Training 45 mg subcut left arm 45 mg [id number] 03/12/25 15580-841-94 [employer]. Assessment & Plan Assessment & Plan Orders: Orders AMB Leuprolide Injection - Practice Supplied Today C61 - Malignant neoplasm of prostate Medications: New Eligard (6 month) (leuprolide acetate (6 month)) 45 mg subcut ONCE 1 ea 0RF NS C61 - Malignant neoplasm of prostate
== END 2024-02-22 11:40 | disposition home or self-care (01) ==
PROVIDERS: PCP Internal Medicine; Visit Provider Urology
DX: C61 Malignant neoplasm of prostate (principal)

== ENCOUNTER → 2024-02-22 11:04 | Outpatient (BNVA) | payer MEDICARE, SELFPAY | PROVIDERS: PCP Internal Medicine; Visit Provider Urology | DX: C61 Malignant neoplasm of prostate (principal) | CPT/HCPCS: 96402; J9217 ==

== ENCOUNTER → 2024-03-30 13:30 | Outpatient (BNVA) | payer MEDICARE, SELFPAY | PROVIDERS: PCP Internal Medicine; Visit Provider Urology ==